=== PATIENT | male | born 1945 | race Two or more races ===

== ENCOUNTER 2024-03-23 17:04 | Inpatient (IN) | payer MEDICARE, MEDICAID, SELFPAY ==
[2024-03-23 17:06] VITALS: BP 181/89; PULSE 98; RESP 19; TEMP 36.4; O2SAT 95
[2024-03-23 17:41] VITALS: PULSE 96; RESP 20; BMI 28.9
[2024-03-23 18:00] VITALS: BP 162/98; PULSE 72; RESP 18; TEMP 36.3; O2SAT 98
--- NOTE | 2024-03-23 18:04 | EDNOTE_ITS ---
ED Weakness RME/HPI General Chief complaint: Weakness Stated complaint: WEAKNESS Time Seen by Provider: 03/23/24 18:04 Arrival date/time: 03/23/24 17:04 Limitations: no limitations RME / HPI RME / HPI Narrative: Dr. San's Main ED Evaluation: 78yo male with a history of Parkinson's disease, back surgery presents to the ED for a chief complaint of generalized weakness for the last few weeks. Patient's states the patient has been falling more frequently lately, reporting his left side is weaker than his right-sided extremities. Patient is followed by Dr. Finch for his Parkinson's and was advised to come to the ED for evaluation. Patient normally gets around via wheelchair. Denies any urinary or bowel incontinence. Denies any UTI symptoms, fever, chills, back pain or any other associated symptoms. No known allergies. Related Data Home Medications ?Medication ?Instructions ?Recorded ?Confirmed amantadine HCl 100 mg capsule 1 cap PO QDAY 10/02/21 03/24/24 carbidopa ER 50 mg-levodopa 200 mg 1 tab PO Q12H 10/02/21 03/24/24 tablet,extended release entacapone 200 mg tablet 1 tab PO Q12H 10/02/21 03/24/24 finasteride 5 mg tablet 1 tab PO HS 10/02/21 03/24/24 pramipexole 0.5 mg tablet 1 tab PO Q8H 10/02/21 03/24/24 trihexyphenidyl 5 mg tablet 2 mg PO BID 01/19/22 03/24/24 lisinopril 40 mg tablet 40 mg PO QDAY 03/24/24 03/24/24 meloxicam 15 mg tablet 15 mg PO QDAY 03/24/24 03/24/24 pimavanserin 34 mg capsule 34 mg PO QDAY 03/24/24 03/24/24 tamsulosin 0.4 mg capsule 0.4 mg PO QDAY 03/24/24 03/24/24 tamsulosin 0.4 mg capsule mg PO 03/24/24 tamsulosin 0.4 mg capsule mg PO 03/24/24 Allergies Allergy/AdvReac Type Severity Reaction Status Date / Time No Known Allergies Allergy Verified 05/10/23 09:17 Review of Systems Review of Systems Systems Reviewed: All systems reviewed, normal except as documented Past Medical History Past Medical History NEUROLOGIC: Positive Neurological Disorders and Parkinson's Disease CARDIAC: Positive Cardiac Disorders and Hypertension; Negative Congestive Heart Failure RESPIRATORY: Negative Chronic Obstructive Pulmonary Disease (COPD) GASTROINTESTINAL: Negative Gastrointestinal Disorders GENITOURINARY: Positive Benign Prostatic Hyperplasia; Negative Renal Disease MUSCULOSKELETAL: Positive Musculoskeletal Disorders ENDOCRINE: Negative Endocrine Disorders, Diabetes Mellitus Type 1 or Diabetes Mellitus Type 2 HEMATOLOGIC: Negative Blood Disorders OTHER HISTORY: Negative Cancer Social History SMOKING STATUS: Never smoker SECOND HAND EXPOSURE: Yes SUBSTANCE USE: does not use ED Exam General Limitations: Present no limitations General appearance: Present alert and in no apparent distress Head Head exam: Present atraumatic Eye Eye exam: Present normal appearance, PERRL and EOMI ENT ENT exam: Present normal exam, normal oropharynx and mucous membranes moist Neck Neck exam: Present normal inspection, full ROM and trachea midline Chest Chest inspection: Present normal inspection and symmetric chest wall rise Respiratory Respiratory exam: Present normal lung sounds bilaterally Cardiovascular Cardiovascular exam: Present regular rate, normal rhythm and normal heart sounds Abdominal Exam Abdominal exam: Present soft, normal bowel sounds and other (large); Absent tenderness Extremities Exam Extremities exam: Present full ROM and other (4+/5 strength at the right extremities, 4/5 strength on the left; normal sensations to touch) Back Exam Back exam: Present normal inspection, full ROM and other (well-healed scar at the lower back without any surrounding erythema; no c/t/l spine tenderness) Neurological Exam Neurological exam: Present alert, oriented X3 and CN II-XII intact Psychiatric Psychiatric exam: Present normal affect and normal mood Skin Skin exam: Present warm, dry, intact and normal color Course Quality Measures none Orders Category Date Time Status COVID-19 Screening Questionnaire NOW Care 03/23/24 22:35 Active Decision to Admit X1 Care 03/23/24 22:[address] head/brain wo con Stat Exams 03/23/24 18:04 Completed CBC Stat Lab 03/23/24 18:36 Completed CMP [Comprehensive Metabolic Panel] Stat Lab 03/23/24 18:36 Completed Urinalysis Stat Lab 03/23/24 21:10 Completed cefTRIAXone [Rocephin] 1,000 mg Med 03/23/24 22:35 Discontinued Sodium Chloride 0.9% (P) [Ns 0.9% (P)] 50 ml IV X1 Vital Signs Vital signs: Vital Signs Temperature 97.6 F 03/23/24 17:06 Pulse Rate 98 03/23/24 17:06 Respiratory Rate 19 03/23/24 17:06 Blood Pressure 181/89 H 03/23/24 17:06 Pulse Oximetry (%) 95 03/23/24 17:06 Oxygen Delivery Method Room Air 03/23/24 17:06 Pulse ox is 95% on room air, which is normal according to my interpretation. Weakness Patient data External records reviewed:: [facility] previous records (Per chart review, patient was admitted here on 08/04/23 for an acute UTI.) Clinical information provided by:: patient Social determinants that could affect healthcare access:: none Patient has the following chronic illnesses:: Parkinson's disease, HTN, BPH How is presenting disease/condition affected by chronic disease/condition?: exacerbated by Evaluation data The following diagnostics were reviewed and interpreted by me:: lab results and radiology exam(s) Lab and/or radiology exams considered but not ordered:: none Interpretation Summary: WBC count is slightly elevated at 11.2, CMP is normal, UA is positive for a UTI, according to my interpretation. ------ I have personally reviewed the radiology data and agree with the radiologist's interpretation below: [facility] Report Signed Patient: JEFF LUDWIG. Record#: [id number] Birthdate: 1945 Age/Sex: 78 / M Location: [facility] Attending Dr: Ordering Physician: Tiffanie Jaeger MD Date of Service: 03/23/24 Procedure(s): CT head/brain wo con Accession Number(s): [id number] cc: Brandyn Bains MD; NO PRIMARY/FAMILY,PHYSICIAN; Tiffanie Jaeger MD~ Examination: CT brain head without contrast. 2-D sagittal coronal reconstructions Date and time of exam:March 23, 2024 1849 hrs. Indications: Onset generalized weakness today CTDI: vol (mGy):56.3 DLP: (mGycm):1245 Technique: Multiple CT axial sections of the brain have been obtained, 5 mm slice thickness. Contrast has not been administered. 2-D sagittal, coronal reconstructions have been obtained Low dose protocols were performed. One or more of the following dose reduction techniques were used; automated exposure control, adjustment of the mA and/or KV according to patient size, use of iterative reconstruction technique. Findings: No significant ventricular enlargement. Intra-axial or extra-axial hemorrhage density is not seen. No mass effect or midline shift Basal cisterns are not remarkable. Fourth ventricle is midline. Cranial vault intact. Impression: Negative for acute hemorrhage, mass effect or midline shift Advise clinical correlation and follow-up accordingly Dictated By: Brandyn Bains MD Signed By: <Electronically signed by Brandyn Bains MD in OV> 03/23/24 1930 Medications / Prescriptions Medications or Prescriptions considered but not ordered:: none Medication administrations:: Medication Administration History Acetaminophen (Acetaminophen 325 Mg Tablet) 650 mg PO Q6H PRN PRN Reason: Pain 1-3 or Fever >100.3 Stop: 04/22/24 23:15 Amantadine HCl (Amantadine Hcl 100 Mg Capsule) 100 mg PO BID [facility] Stop: 03/31/24 08:59 Last Admin: 03/25/24 22:30 Dose: 100 mg Documented By: Admin: 03/25/24 09:53 Dose: 100 mg Documented By: Admin: 03/24/24 21:57 Dose: Not Given Documented By: Non-Admin Reason: Medication Not Available Admin: 03/24/24 09:26 Dose: 100 mg Documented By: SERGIO Carbidopa/Levodopa (Carbidopa/Levodopa Cr 50/200 Tabcr) 1 tab PO TID [facility] Stop: 04/22/24 23:29 Last Admin: 03/25/24 22:30 Dose: 1 tab Documented By: Admin: 03/25/24 13:01 Dose: 1 tab Documented By: Admin: 03/25/24 05:31 Dose: 1 tab Documented By: Admin: 03/24/24 21:56 Dose: 1 tab Documented By: Admin: 03/24/24 15:58 Dose: 1 tab Documented By: Admin: 03/24/24 08:29 Dose: Not Given Documented By: SERGIO Non-Admin Reason: FIRST DOSE GIVE AT 0220 Admin: 03/24/24 02:21 Dose: 1 tab Documented By: AYLA Trihexyphenidyl 2mg (Tablet) 0 ea PO BID [facility] Stop: 04/23/24 12:29 Last Admin: 03/25/24 22:30 Dose: 1 tablet Documented By: Admin: 03/25/24 08:27 Dose: 1 tablet Documented By: Admin: 03/24/24 21:56 Dose: 1 tablet Documented By: Admin: 03/24/24 14:50 Dose: 1 tablet Documented By: SERGIO Entacapone (Entacapone 200 Mg Tablet (Non-Formulary)) 200 mg PO BID [facility] Stop: 04/22/24 08:59 Last Admin: 03/25/24 22:32 Dose: 200 mg Documented By: Admin: 03/25/24 09:53 Dose: 200 mg Documented By: Admin: 03/24/24 21:57 Dose: Not Given Documented By: Non-Admin Reason: Medication Not Available Admin: 03/24/24 09:34 Dose: Not Given Documented By: SERGIO Non-Admin Reason: Cancelled by Provider Admin: 03/24/24 09:26 Dose: 200 mg Documented By: Admin: 03/24/24 08:31 Dose: Not Given Documented By: SERGIO Non-Admin Reason: NOT ADMITTED UNTIL 2316 ON 03/23 Finasteride (Finasteride 5 Mg Tablet) 5 mg PO QDAY [facility] Stop: 04/23/24 08:59 Last Admin: 03/25/24 08:27 Dose: 5 mg Documented By: Admin: 03/24/24 09:27 Dose: 5 mg Documented By: SERGIO Heparin Sodium (Porcine) (Heparin Sod Inj 5000 Unit/Ml Vial) 5,000 unit SC Q12HR [facility] Stop: 04/07/24 08:59 Last Admin: 03/25/24 22:32 Dose: 5,000 unit Documented By: FRANKI Co-signed By: ISRAEL Admin: 03/25/24 08:27 Dose: 5,000 unit Documented By: NOHELIA Co-signed By: REJI Admin: 03/24/24 21:56 Dose: 5,000 unit Documented By: Co-signed By: ISRAEL Admin: 03/24/24 09:29 Dose: 5,000 unit Documented By: SERGIO Co-signed By: ALEJANDRO Ceftriaxone Sodium/Dextrose (Rocephin/D5w 1gm Iv Premix) 50 mls @ 100 mls/hr IV HS [facility] Stop: 03/31/24 20:59 Last Admin: 03/25/24 22:32 Dose: 100 mls/hr Documented By: Infusion: 03/24/24 22:25 Dose: Infused Documented By: Admin: 03/24/24 21:55 Dose: 100 mls/hr Documented By: Lisinopril (Lisinopril 20 Mg Tablet) 40 mg PO HS [facility] Stop: 04/22/24 23:29 Last Admin: 03/25/24 22:29 Dose: 40 mg Documented By: Admin: 03/24/24 21:56 Dose: 40 mg Documented By: Admin: 03/24/24 00:55 Dose: 40 mg Documented By: AYLA Ondansetron HCl (Ondansetron Inj 2 Mg/Ml Inj 2 Ml) 4 mg IV Q6H PRN; Protocol PRN Reason: NAUSEA OR VOMITING Stop: 04/22/24 23:15 Pramipexole Dihydrochloride (Pramipexole 0.25 Mg Tablet) 0.5 mg PO TID [facility] Stop: 04/22/24 23:29 Last Admin: 03/25/24 22:30 Dose: 0.5 mg Documented By: Admin: 03/25/24 13:01 Dose: 0.5 mg Documented By: Admin: 03/25/24 05:31 Dose: 0.5 mg Documented By: Admin: 03/24/24 21:56 Dose: 0.5 mg Documented By: Admin: 03/24/24 15:59 Dose: 0.5 mg Documented By: Admin: 03/24/24 08:33 Dose: Not Given Documented By: SERGIO Non-Admin Reason: FIRST DOES GIVEN AT 0220 Admin: 03/24/24 02:20 Dose: 0.5 mg Documented By: AYLA Sennosides (Senna Tablet) 1 tab PO QDAY [facility]; Protocol Stop: 04/23/24 08:59 Last Admin: 03/25/24 08:27 Dose: 1 tab Documented By: Admin: 03/24/24 09:25 Dose: 1 tab Documented By: SERGIO Tamsulosin HCl (Tamsulosin Hcl 0.4 Mg Capsule) 0.4 mg PO QDAY [facility] Stop: 04/23/24 08:59 Last Admin: 03/25/24 08:27 Dose: 0.4 mg Documented By: Admin: 03/24/24 09:25 Dose: 0.4 mg Documented By: SERGIO Discontinued Medications Ceftriaxone Sodium 1,000 mg/ (Sodium Chloride) 50 mls @ 100 mls/hr IV X1 ONE Stop: 03/23/24 23:04 Last Infusion: 03/24/24 01:30 Dose: Infused Documented By: Admin: 03/24/24 00:54 Dose: 100 mls/hr Documented By: AYLA Home Medication- Please Speak With Patient Caregiver To Have Rx Brought To [facility] 2 mg PO BID [facility] Stop: 04/22/24 23:44 Last Admin: 03/24/24 16:05 Dose: Not Given Documented By: SERGIO Non-Admin Reason: Duplicate Medication on eMAR Admin: 03/24/24 15:30 Dose: 2 mg Documented By: SERGIO Comments: PATIENT GIVEN OWN MEDICATION FROM HOME, SCANNED WITH PHARMACY LABEL see above, if any Consultations Consultation(s) initiated? (list below): Yes Consultation #1 (Physician, Specialty, Details): Discussed case with [Dr. Finch] from [neurology] regarding [consultation]. Discussed patients ED course, exam findings, labs, and radiology results. States to admit the patient for further work-up and to have the patient placed in a SNF. Time: 22:31 Consultation #2 (Physician, Specialty, Details): Discussed case with [the resident physician, attending Dr. Bhatt] from Hospitalist service regarding admission. Discussed patients ED course, exam findings, labs, and radiology results. The Hospitalist [agrees] to accept the patient for admission. Time: 22:34 Diagnosis Weakness Differential Diagnosis: other (UTI, electrolyte abnormality, CVA, TIA, worsening of Parkinson's disease) Most likely diagnosis given after review of the tests above:: see below Admission Indicated Admission indicated?: indicated Admission Request Was there a request for admission?: Yes Admission Attestation Admission request attestation: Discussed case with [] from Hospitalist service regarding admission. Discussed patients ED course, exam findings, labs, and radiology results. The Hospitalist [agrees,declines] to accept the patient for admission. Disposition Plan Disposition Plan: Admit Critical Care Time Critical Care Time Critical Care Time: Yes Total Critical Care Time (min.): 35 Attestation: The high probability of sudden, clinically significant deterioration in the patient?s condition required the highest level of my preparedness to intervene urgently. The services I provided to this patient were to treat and/or prevent clinically significant deterioration. Services included the following: chart data review, reviewing nursing notes and/or old charts, documentation time, store consultant collaboration regarding findings and treatment options, medication orders and management, direct patient care, vital sign assessments and ordering, interpreting and reviewing diagnostic studies and lab tests. Aggregate critical care time includes only time during which I was engaged in work directly related to the patient?s care, as described above, whether at bedside or elsewhere in the Emergency Department. It did not include time spent performing other reported procedures or the services of residents, students, nurses or physician assistants. Discharge Plan Plan Patient Disposition: Admit Acute Care w/in Hospital Patient condition on transfer: Stable Problem List Clinical Impression: Weakness
[2024-03-23 19:04] LABS: Basophils # (Auto) 0.1 Thou/mm3 (0.0-0.2); Basophils % (Auto) 1 % (0-2.5); Eosinophils # (Auto) 0.1 Thou/mm3 (0.0-0.5); Eosinophils % (Auto) 1 % (0-10); Hematocrit 41.3 % (41.0-53.0); Hemoglobin 13.8 g/dL (13.5-16.0); Immature Granulocytes % (Auto) 0 % (0-0); Immature Granulocytes Auto 0.03 Thou/mm3 (0.00-0.00); Lymphocytes # (Auto) 1.5 Thou/mm3 (1.0-4.8); Lymphocytes % (Auto) 14 % (10-50); Mean Corpuscular HGB Conc 33.4 g/dl (31.0-37.0); Mean Corpuscular Hemoglobin 29.7 pg (25.0-35.0); Mean Corpuscular Volume 89 fL (80-100); Monocytes % (Auto) 9 % (0-12); Neutrophils # (Auto) 8.4 Thou/mm3 (1.8-7.7); Neutrophils % (Auto) 75 % (37-80); Nucleated Red Blood Cell % 0 /100 WBC (0); Platelet Count 220 Thou/mm3 (140-440); RDW Standard Deviation 45.4 fL (35.1-43.9); Red Blood Count 4.64 Miln/mm3 (4.50-5.90); White Blood Count 11.2 Thou/mm3 (3.8-10.6)
[2024-03-23 19:29] LABS: Alanine Aminotransferase < 7 U/L (10-49); Albumin, Serum 4.3 gm/dL (3.4-4.8); Albumin/Globulin Ratio 2.3 (1.2-2.2); Alkaline Phosphatase 150 U/L (46-116); Anion Gap 5 (7-16); Aspartate Amino Transferase 16 U/L (0-34); BUN/Creatinine Ratio 16 Ratio (12-20); Bilirubin,Total 0.5 mg/dL (0.3-1.2); Blood Urea Nitrogen 16 mg/dL (9-23); Calcium 9.1 mg/dL (8.3-10.6); Calcium (Corrected) 9.1 mg/dL (8.5-10.1); Carbon Dioxide 29.8 mMol/L (20.0-31.0); Chloride 107 mMol/L (98-107); Estimated Creatinine Clearance 54.6 mL/min (>60); Globulin 1.9 gm/dL (2.3-3.5); Glucose 104 mg/dL (74-106); Osmolality,Calculated 284 (275-295); Potassium 4.2 mMol/L (3.4-5.1); Sodium 142 mMol/L (136-145); Total Protein 6.2 gm/dL (5.7-8.2); eGFR > 60 See Note
[2024-03-23 21:25] LABS: Collection Type, Urine Voided
[2024-03-23 21:49] LABS: Bilirubin,Urine Negative (Negative); Blood,Urine 3+ (Negative); Clarity,Urine Turbid (Clear/Hazy); Color,Urine Yellow (Lt Yel-Yel); Glucose, Urine Negative (Negative); Ketones,Urine Negative (Negative); Leukocyte Esterase,Urine Positive (Negative); Nitrite,Urine Negative (Negative); Protein,Urine Trace (Neg - Trace); RBC,Urine 1828 /hpf (0-3); Specific Gravity,Urine 1.018 (1.001-1.035); Squamous Epithelial Cell,Urine < 1 /hpf (0-5); Urobilinogen,Urine Negative mg/dL (0.0-1.0); WBC,Urine 14 /hpf (0-5)
[2024-03-23 22:38] VITALS: BP 166/87; PULSE 71; RESP 18; TEMP 36.6; O2SAT 98
--- NOTE | 2024-03-23 23:47 | PD.RESHP ---
Documentation for date of: 03/23/24 [facility] History of Present Illness History of present illness: The patient is a 78-year-old male with a past medical history of Parkinson disease, BPH, hypertension, hyperlipidemia who presented to the ED on 03/23/2024 after a 2-week history of multiple falls. Per the patient and at bedside, he has been in his usual state of health until about 2 weeks ago when he hematemesis that he was getting a little weak, more on his left side. Since that time, patient has been consistently found either on the floor or falling off the couch as seen by relatives. He also reports that he has been unable to get up from toilet seat due to weakness. While he does deny he denies any losing consciousness of any of the falls, he does admit that he scraped his left knee recently. Other than that, he has been pretty healthy in the last couple months. He was hospitalized in August for similar symptoms and he presented with weakness and multiple falls, further workup was done at the time and patient was discharged to SNF. He has been followed by neurologist Dr. Finch who advised the patient to come in for further evaluation and recommended admission for possible SNF placement. ED course: In the ED, patient was afebrile but hypertensive with blood pressure in the 180s, saturating 90% on room air. Head CT was done which shows negative for any acute processes. On labs, WBC 11.2 Hgb 13.8 PLT 220 sodium 142 potassium 4.2 CL 107 BUN and creatinine normal ALP 115. Usually turbid urine with 3+ blood 1828 RBC and 14 WBC with positive esterase, but no bacteria. The patient is being admitted for further evaluation. Review of Systems Review of Systems Narrative Review of Systems: GENERAL: Denies fevers/chills or diaphoresis. HEENT: Denies headache or visual/hearing changes. Denies nasal discharge. NEURO:Admits unusual weakness and increasing tremors CARDIO: Denies chest pain or palpitations. PULM: Denies SOB, coughing, or wheezing. GI: Denies abdominal pain, N/V/C/D/reflux/gas, bright red blood per rectum or melena. Reports having BMs. URO: Denies burning/itching/pain/urinary changes. MSK/EXT/SKIN: Admits mild pain in the left knee PSYCH: Cooperative, pleasant mood & affect. Exam Vital Signs Temp Pulse Resp BP Pulse Ox O2 Del Method 97.9 F 71 18 166/87 H 98 Room Air 03/23/24 22:38 03/23/24 22:38 03/23/24 22:38 03/23/24 22:38 03/23/24 22:38 03/23/24 22:38 Narrative Exam GENERAL: AAOX3 NEURO: Strength 5/5 in RUE and RLE, 4/5 strength in LLE, sensation intact, reflexes normal. Resting and intention tremors seen in upper extremities as well as head tremors. HEENT: Moist mucosa. Eyes open, symmetrical, & clear CARDIO: No chest pain on palpation. Heart RRR, no obvious murmurs PULM: No noted coughing/dyspnea. Lungs CTA B/L GI: Abdomen soft, nondistended, no pain on palpation. BSx4 URO/REGULATORY SUBMISSIONS ASSOCIATE:: No further abnormalities noted. SKIN/MSK/EXT: Left knee bruise seen with some redness, no swelling or warmth. Normal range of motion Results: Labs 03/24/24 04:20 03/24/24 04:20 Labs: Short CBC 03/23/24 Range/Units 18:36 WBC 11.2 H (3.8-10.6) Thou/mm3 Hgb 13.8 (13.5-16.0) g/dL Hct 41.3 (41.0-53.0) % Plt Count 220 (140-440) Thou/mm3 BMP 03/23/24 18:36 Sodium 142 Potassium 4.2 Chloride 107 Carbon Dioxide 29.8 BUN 16 Creatinine 1.0 Glucose 104 Calcium 9.1 Liver Function 03/23/24 Range/Units 18:36 Total Bilirubin 0.5 (0.3-1.2) mg/dL AST 16 (0-34) U/L ALT < 7 L (10-49) U/L Alkaline Phosphatase 150 H (46-116) U/L Albumin 4.3 (3.4-4.8) gm/dL Urine 03/23/24 Range/Units 21:10 Urine Color Yellow (Lt Yel-Yel) Urine Clarity Turbid A (Clear/Hazy) Urine pH 7.0 (5.0-7.0) Ur Specific [place] 1.018 (1.001-1.035) Urine Protein Trace (Neg - Trace) Urine Glucose (UA) Negative (Negative) Quality Measures Quality Measures none Advance care planning discussed with:: patient and spouse Medications Home Medications and Allergies Home Medications ?Medication ?Instructions ?Recorded ?Confirmed ?Type amantadine HCl 100 mg capsule 1 cap PO QDAY 10/02/21 08/04/23 History carbidopa ER 50 mg-levodopa 200 mg 1 tab PO Q12H 10/02/21 08/04/23 History tablet,extended release entacapone 200 mg tablet 1 tab PO Q12H 10/02/21 08/04/23 History finasteride 5 mg tablet 1 tab PO HS 10/02/21 08/04/23 History hydralazine 25 mg tablet 1 tab PO Q8H 10/02/21 08/04/23 History pramipexole 0.5 mg tablet 1 tab PO Q8H 10/02/21 08/04/23 History tamsulosin 0.4 mg capsule 1 cap PO HS 10/02/21 08/04/23 History atorvastatin 40 mg tablet 40 mg PO QPM 01/19/22 08/04/23 History melatonin 5 mg tablet 5 mg PO HS PRN Sleep 01/19/22 08/04/23 History multivitamin 1 tab PO QAM 01/19/22 08/04/23 History trihexyphenidyl 5 mg tablet 5 mg PO BID 01/19/22 08/04/23 History Allergies Allergy/AdvReac Type Severity Reaction Status Date / Time No Known Allergies Allergy Verified 05/10/23 09:17 Visit Medications Acetaminophen (Acetaminophen 325 Mg Tablet) 650 mg PO Q6H PRN PRN Reason: Pain 1-3 or Fever >100.3 Stop: 04/22/24 23:15 Amantadine HCl (Amantadine Hcl 100 Mg Capsule) 100 mg PO BID [facility] Stop: 03/31/24 08:59 Carbidopa/Levodopa (Carbidopa/Levodopa Cr 50/200 Tabcr) 1 tab PO TID [facility] Stop: 04/22/24 23:29 Heparin Sodium (Porcine) (Heparin Sod Inj 5000 Unit/Ml Vial) 5,000 unit SC Q12HR [facility] Stop: 04/07/24 08:59 Lisinopril (Lisinopril 20 Mg Tablet) 40 mg PO HS [facility] Stop: 04/22/24 23:29 Non-Formulary Medication (Entacapone) 200 mg PO BID [facility] Stop: 04/22/24 23:29 Non-Formulary Medication (Trihexyphenidyl) 2 mg PO BID [facility] Stop: 04/22/24 23:44 Ondansetron HCl (Ondansetron Inj 2 Mg/Ml Inj 2 Ml) 4 mg IV Q6H PRN; Protocol PRN Reason: NAUSEA OR VOMITING Stop: 04/22/24 23:15 Pramipexole Dihydrochloride (Pramipexole 0.25 Mg Tablet) 0.5 mg PO TID [facility] Stop: 04/22/24 23:29 Sennosides (Senna Tablet) 1 tab PO QDAY [facility]; Protocol Stop: 04/23/24 08:59 Discontinued Medications Ceftriaxone Sodium 1,000 mg/ (Sodium Chloride) 50 mls @ 100 mls/hr IV X1 ONE Stop: 03/23/24 23:04 Assessment & Plan Assessment Summary: The patient is a 78year old male with a past medical history of parkinson's disease, BPH, hypertension, hyperlipidemia who presented to the ED on 03/23/2024 after a 2week history of multiple falls. #Multiple falls #History of parkinson disease The patient presented with a two week history of multiple falls as reported by him and family members. He has reportedly been seen to fall off the bed/couch as well as have trouble getting up from the toilet. He was hospitalized in August for similar symptoms when he presented with weakness and multiple falls and at the time further workup was done which was negative. Th patient was discharged to a SNF with all his medications except trihexyphenidyl as it was suspected to be the cause of his falls. He is being followed by Neurologist, Dr Finch and patient is back on the medication. She was contacted and it was recommended that patient be admitted for further evaluation. Head CT ws negative for acute hemorrhage, mass effect or midline shift. Plan: -Admit to [facility] -Resume home meds -Neurology consulted, appreciate recommendations -Referral physical therapy #History of hypertension #History of hyperlipidemia The patient has a history of hypertension and is on Lisinopril 40mg. Blood pressure on admission was in the #History of BPH #s/p prostatectomy #Dysuria He has a history of BPH and is on finasteride 5mg and tamsulosin 0.4mg daily. UA on admission shows 3+ blood and 1828 RBCs, no bacteria He complains of burning sensation and some pinkish discoloration in his urine but no retention. He received one dose of IV Ceftriaxone in the ED Plan: -Resume home meds -CT abdomen/pelvis -Consider Pyridium for dysuria Health maintenance: Dispo: MedSurg Diet: Cardiac DVT: SC Heparin Thakkar: None Lines: Peripheral Med Rec: Pending, f/u PT: Ordered Code: Full Case was discussed with attending physician, Dr Nova Garcia MD PGY-1 Attending Provider Attestation/Addendum Face to face evaluation was performed by me. I have personally seen and examined the patient. I discussed the assessment and plan with the entire medicine team. I reviewed available medical records, imaging studies, laboratory results. I agree with the above subjective data, objective findings, assessment and plan except as corrected by me or noted below Multiple falls, Parkinsons disease HTN HLD - Admit for further workup and likely placement Neurology consulted, appreciate all help continue home medications as reconciles Therapy
[2024-03-24] VITALS (14 sets, daily range): BP systolic 125–176; BP diastolic 68–90; PULSE 65–78; RESP 16–98; TEMP 36.3–37; O2SAT 96–98; BMI 34.6
--- NOTE | 2024-03-24 00:43 | XR_ITS ---
Examination: CT abdomen and pelvis without contrast. Coronal 3-D reconstructions. Sagittal 2-D reconstructions. Date and time of exam:March 24, 2024 0132 hrs. Indications: Abdominal pain and weakness beginning 2 days ago CTDI: vol (mGy): 11.8 DLP: (mGycm): 830 Technique: Axial images of the abdomen have been obtained, 3 mm slice thickness Intravenous contrast material has not been administered. Low dose protocols were performed. One or more of the following dose reduction techniques were used; automated exposure control, adjustment of the mA and/or KV according to patient size, use of iterative reconstruction technique. Findings: No focal liver or splenic lesions No gallstones No pancreatic mass Perinephric stranding No renal or ureteral calculi, no hydronephrosis Abdominal aortic calcification no aneurysmal dilatation Normal appendix 6 mm fat-containing umbilical hernia No bowel obstruction No diverticulitis Minimal thickening of the urinary bladder wall Transverse prostate dimension 4.4 cm Bilateral fat-containing inguinal hernias Transpedicular lumbar fusion at L4-L5 level, cortical bone destruction involving inferior endplate L4 superior endplate L5 which may be postsurgical Impression: Perinephric stranding, consider urinary tract infection Minimal thickening of the urinary bladder wall, cystitis pattern Normal appendix
[2024-03-24] MEDS: cefTRIAXone 1,000 MG in SODIUM CHLORIDE 0.9% (P) 50 ML 100 MG IV (00:54)
[2024-03-24] MEDS: Lisinopril 20 MG TABLET 40 MG PO ×2 (00:55→21:56)
[2024-03-24] MEDS: PRAMIPEXOLE 0.25 MG TABLET 0.5 MG PO ×3 (02:20→21:56)
[2024-03-24] MEDS: CARBIDOPA/LEVODOPA CR 50/200 TABCR 1 TAB PO ×3 (02:21→21:56)
--- NOTE | 2024-03-24 03:05 | PRELIM_ITS ---
CT scan of the abdomen and pelvis without intravenous contrast (axial sections with sagittal and madyson nal reformats) March 24, 2024 at 0132 hours Clinical History: Hematuria and dysuria.Comparison: No prior study is available for comparison. Findings:Bibasilar dependent atelectasis is present. Elevat ion of the right hemidiaphragm is seen.A small hiatal hernia is present. The liver, gallbladder, panc reas, spleen, and adrenals are unremarkable on this noncontrast study.Nonspecific perinephric fat str anding is noted bilaterally. No evidence of bowel obstruction. The appendix is within normal limits. Abundant fecal material is noted within the colon. There is no mesenteric or retroperitoneal adenopat hy.The urinary bladder is incompletely distended at the time of the examination. There is no free flu id or free air. The aorta and its branches demonstrate atheromatous calcification without evidence of aneurysm. Osseous degenerative changes are noted. Impression:Perinephric fat stranding bilaterally. While nonspecific, the possibility of urinary infection cannot be excluded. Recommend clinical correl ation. Constipation. Report Electronically Signed By: Ori Núñez 03/24/2024 3:05:22 AM [EST]
[2024-03-24 04:24] LABS: Basophils # (Auto) 0.1 Thou/mm3 (0.0-0.2); Basophils % (Auto) 1 % (0-2.5); Eosinophils # (Auto) 0.2 Thou/mm3 (0.0-0.5); Eosinophils % (Auto) 2 % (0-10); Hematocrit 40.9 % (41.0-53.0); Hemoglobin 14.1 g/dL (13.5-16.0); Immature Granulocytes % (Auto) 0 % (0-0); Immature Granulocytes Auto 0.02 Thou/mm3 (0.00-0.00); Lymphocytes # (Auto) 1.2 Thou/mm3 (1.0-4.8); Lymphocytes % (Auto) 12 % (10-50); Mean Corpuscular HGB Conc 34.5 g/dl (31.0-37.0); Mean Corpuscular Hemoglobin 29.9 pg (25.0-35.0); Mean Corpuscular Volume 87 fL (80-100); Monocytes # (Auto) 0.7 Thou/mm3 (0.0-0.8); Monocytes % (Auto) 7 % (0-12); Neutrophils # (Auto) 7.8 Thou/mm3 (1.8-7.7); Neutrophils % (Auto) 78 % (37-80); Nucleated Red Blood Cell % 0 /100 WBC (0); Platelet Count 207 Thou/mm3 (140-440); RDW Standard Deviation 44.3 fL (35.1-43.9); Red Blood Count 4.71 Miln/mm3 (4.50-5.90); White Blood Count 9.9 Thou/mm3 (3.8-10.6)
[2024-03-24 04:54] LABS: Alanine Aminotransferase < 7 U/L (10-49); Albumin, Serum 4.1 gm/dL (3.4-4.8); Albumin/Globulin Ratio 2.2 (1.2-2.2); Alkaline Phosphatase 147 U/L (46-116); Anion Gap 5 (7-16); Aspartate Amino Transferase 12 U/L (0-34); BUN/Creatinine Ratio 16 Ratio (12-20); Bilirubin,Total 0.7 mg/dL (0.3-1.2); Blood Urea Nitrogen 13 mg/dL (9-23); Calcium 8.9 mg/dL (8.3-10.6); Calcium (Corrected) 8.9 mg/dL (8.5-10.1); Carbon Dioxide 27.8 mMol/L (20.0-31.0); Cardiac Risk Estimate 3.1 RATIO (4.0-6.7); Chloride 108 mMol/L (98-107); Cholesterol 140 mg/dL (132-200); Creatinine (Component) 0.8 mg/dL (0.6-1.3); Estimated Creatinine Clearance 68.3 mL/min (>60); Globulin 1.9 gm/dL (2.3-3.5); Glucose 106 mg/dL (74-106); HDL Cholesterol 45 mg/dL (40-60); LDL Cholesterol,Calculated 81 mg/dL (0-130); Magnesium 2.2 mg/dL (1.6-2.6); Osmolality,Calculated 281 (275-295); Phosphorous 3.1 mg/dL (2.4-5.1); Potassium 3.8 mMol/L (3.4-5.1); Sodium 141 mMol/L (136-145); Thyroid Stimulating Hormone 0.88 uIU/mL (0.55-4.78); Triglycerides 72 mg/dL (30-150); eGFR > 60 See Note
--- NOTE | 2024-03-24 05:13 | PC.NURSE ---
Pt is sleeping. arouses easily. NAD.
--- NOTE | 2024-03-24 07:48 | PC.CC ---
Patient is a 78 year-old male who presents to the hospital for weakness. Sona LIVINGSTON made [id number] contact with patient. ASW introduced self, role, and reason for visit. Patient appeared alert and oriented to self, location, and situation. Patient was pleasant and engaged in initial assessment. Patient confirmed information on demographics and reports to living at home with his daughter, Marry Conroy . Patient named his daughter as Next of Kin. Per patient, at home he is able to complete his own ADLs; however for ambulation he uses a walker and wheelchair. Patient receives primary care with [facility] in [place] and for prescription medication he uses [facility]. Upond discharge patient is thinking about going to a Custodial Facility as he has had multiple falls and feels weak. Patient reports he stayed at [facility] for 6 weeks and would like to retyn there is possible. child protective services specialist to follow up with any discharge needs.
[2024-03-24 08:23] LABS: Creatine Kinase 163 U/L (34-171)
--- NOTE | 2024-03-24 09:16 | PC.NURSE ---
Patient was assisted with feeding. Patient tolerated well and ate a good portion of his breakfast.
[2024-03-24] MEDS: SENNA TABLET 1 TAB PO (09:25)
[2024-03-24] MEDS: TAMSULOSIN HCL 0.4 MG CAPSULE PO (09:25)
[2024-03-24] MEDS: ENTACAPONE 200 MG PO (09:26)
[2024-03-24] MEDS: amantadine HCL 100 MG CAPSULE PO (09:26)
[2024-03-24] MEDS: FINASTERIDE 5 MG TABLET PO (09:27)
[2024-03-24] MEDS: HEPARIN SOD INJ 5000 UNIT/ML VIAL SC ×2 (09:29→21:56)
--- NOTE | 2024-03-24 10:05 | PC.NURSE ---
CONTACTED DAUGHTER OF PATIENT REQUESTING MEDICATION LIST AND TO BRING MEDICATION DUE TO HOSPITAL NOT STOCKING ALL OF PATIENT HOME MEDICATION. DAUGHTER STATES SHE WILL BE HERE LATER THIS AM. DAUGHTER UPDATED ON PLAN OF CARE.
--- NOTE | 2024-03-24 10:35 | PD.RESCONSUL ---
HPI Data of Consult Requesting Physician: Fredrick Bhatt MD Admitting Provider: Fredrick Bhatt MD Attending Provider: Fredrick Bhatt MD Primary Care Provider: Physician No Primary/Family Consult Narrative History of present illness: 78-year-old male with a past medical history of Parkinson disease, BPH, hypertension, hyperlipidemia who presented to the ED on 03/23/2024 after a 2-week history of multiple falls. Patient refers feeling progressively weaker, trips easily, he denies losing consciousness or hitting his head. He was hospitalized in August for similar symptoms as he presented with weakness and multiple falls. He has been followed by neurologist Dr. Finch outpatient. ED course: In the ED, patient was afebrile but hypertensive with blood pressure in the 180s, saturating 90% on room air. Head CT was done which shows negative for any acute processes. On labs, WBC 11.2 Hgb 13.8 PLT 220 sodium 142 potassium 4.2 CL 107 BUN and creatinine normal ALP 115. UA turbid urine with 3+ blood 1828 RBC and 14 WBC with positive esterase, but no bacteria. The patient was admitted for further evaluation, neurology consulted to reevaluate medications. cc:: cc: Fredrick Bhatt MD Review of Systems Review of Systems Systems Reviewed: All systems reviewed, normal except as documented Exam Vital Signs Temp Pulse Resp BP Pulse Ox O2 Del Method 97.3 F 70 20 163/81 H 98 Room Air 03/24/24 09:57 03/24/24 09:57 03/24/24 09:57 03/24/24 09:57 03/24/24 09:57 03/24/24 09:57 Narrative Exam GENERAL: Awake, alert and oriented. No acute distress. HEENT: Normocephalic, atraumatic and nontender.? Pupils are equal and reactive to light and accommodation.? Oral mucosa moist. NECK: Supple without adenopathy. Traquea midline. Nontender, carotid pulse 2+ bilaterally without bruits, no JVD.? CHEST: Heart rate and rythm normal, no murmurs, gallops auscultated. S1 & 2 normal insensity. Nontender on palpation, no deformity and no crepitus. LUNGS: Lung sounds are clear.? No wheezing, rales or ronchi.? No intercostal subcostal retraction. Room air ABDOMEN: Soft,symmetric , nontender, no guarding or rebound tenderness. No abnormal masses palpated.?Bowel sounds are normoactive in all 4 quadrants. EXTREMITIES: Nontender.? No pitting edema.? No cyanosis.? Patient is able to move all 4 extremities. SKIN:excoriations on lower extremities NEURO:? Cranial nerves intact.? There is no focalization.? GCS is 15. Results Labs 03/25/24 04:46 03/25/24 04:46 Labs: Short CBC 03/23/24 03/24/24 Range/Units 18:36 04:20 WBC 11.2 H 9.9 (3.8-10.6) Thou/mm3 Hgb 13.8 14.1 (13.5-16.0) g/dL Hct 41.3 40.9 L (41.0-53.0) % Plt Count 220 207 (140-440) Thou/mm3 BMP 03/23/24 03/24/24 18:36 04:20 Sodium 142 141 Potassium 4.2 3.8 Chloride 107 108 H Carbon Dioxide 29.8 27.8 BUN 16 13 Creatinine 1.0 0.8 Glucose 104 106 Calcium 9.1 8.9 Cardiac Enzymes 03/24/24 Range/Units 04:20 Total Creatine Kinase 163 (34-171) U/L Liver Function 03/23/24 03/24/24 Range/Units 18:36 04:20 Total Bilirubin 0.5 0.7 (0.3-1.2) mg/dL AST 16 12 (0-34) U/L ALT < 7 L < 7 L (10-49) U/L Alkaline Phosphatase 150 H 147 H (46-116) U/L Albumin 4.3 4.1 (3.4-4.8) gm/dL Urine 03/23/24 Range/Units 21:10 Urine Color Yellow (Lt Yel-Yel) Urine Clarity Turbid A (Clear/Hazy) Urine pH 7.0 (5.0-7.0) Ur Specific [place] 1.018 (1.001-1.035) Urine Protein Trace (Neg - Trace) Urine Glucose (UA) Negative (Negative) Quality Measures Quality Measures none Advance care planning discussed with:: patient Medications Home Medications and Allergies Home Medications ?Medication ?Instructions ?Recorded ?Confirmed ?Type amantadine HCl 100 mg capsule 1 cap PO QDAY 10/02/21 03/24/24 History carbidopa ER 50 mg-levodopa 200 mg 1 tab PO Q12H 10/02/21 03/24/24 History tablet,extended release entacapone 200 mg tablet 1 tab PO Q12H 10/02/21 03/24/24 History finasteride 5 mg tablet 1 tab PO HS 10/02/21 03/24/24 History pramipexole 0.5 mg tablet 1 tab PO Q8H 10/02/21 03/24/24 History trihexyphenidyl 5 mg tablet 2 mg PO BID 01/19/22 03/24/24 History lisinopril 40 mg tablet 40 mg PO QDAY 03/24/24 03/24/24 History meloxicam 15 mg tablet 15 mg PO QDAY 03/24/24 03/24/24 History pimavanserin 34 mg capsule 34 mg PO QDAY 03/24/24 03/24/24 History tamsulosin 0.4 mg capsule 0.4 mg PO QDAY 03/24/24 03/24/24 History tamsulosin 0.4 mg capsule mg PO 03/24/24 History tamsulosin 0.4 mg capsule mg PO 03/24/24 History Allergies Allergy/AdvReac Type Severity Reaction Status Date / Time No Known Allergies Allergy Verified 05/10/23 09:17 Visit Medications Acetaminophen (Acetaminophen 325 Mg Tablet) 650 mg PO Q6H PRN PRN Reason: Pain 1-3 or Fever >100.3 Stop: 04/22/24 23:15 Amantadine HCl (Amantadine Hcl 100 Mg Capsule) 100 mg PO BID [facility] Stop: 03/31/24 08:59 Last Admin: 03/24/24 09:26 Dose: 100 mg Carbidopa/Levodopa (Carbidopa/Levodopa Cr 50/200 Tabcr) 1 tab PO TID [facility] Stop: 04/22/24 23:29 Last Admin: 03/24/24 08:29 Dose: Not Given Entacapone (Entacapone 200 Mg Tablet (Non-Formulary)) 200 mg PO BID [facility] Stop: 04/22/24 08:59 Last Admin: 03/24/24 09:34 Dose: Not Given Finasteride (Finasteride 5 Mg Tablet) 5 mg PO QDAY [facility] Stop: 04/23/24 08:59 Last Admin: 03/24/24 09:27 Dose: 5 mg Heparin Sodium (Porcine) (Heparin Sod Inj 5000 Unit/Ml Vial) 5,000 unit SC Q12HR BRY Stop: 04/07/24 08:59 Last Admin: 03/24/24 09:29 Dose: 5,000 unit Ceftriaxone Sodium/Dextrose (Rocephin/D5w 1gm Iv Premix) 50 mls @ 100 mls/hr IV HS BRY Stop: 03/31/24 20:59 Lisinopril (Lisinopril 20 Mg Tablet) 40 mg PO HS BRY Stop: 04/22/24 23:29 Last Admin: 03/24/24 00:55 Dose: 40 mg Home Medication- Please Speak With Patient Caregiver To Have Rx Brought To [facility] 2 mg PO BID BRY Stop: 04/22/24 23:44 Ondansetron HCl (Ondansetron Inj 2 Mg/Ml Inj 2 Ml) 4 mg IV Q6H PRN; Protocol PRN Reason: NAUSEA OR VOMITING Stop: 04/22/24 23:15 Pramipexole Dihydrochloride (Pramipexole 0.25 Mg Tablet) 0.5 mg PO TID [facility] Stop: 04/22/24 23:29 Last Admin: 03/24/24 08:33 Dose: Not Given Sennosides (Senna Tablet) 1 tab PO QDAY [facility]; Protocol Stop: 04/23/24 08:59 Last Admin: 03/24/24 09:25 Dose: 1 tab Tamsulosin HCl (Tamsulosin Hcl 0.4 Mg Capsule) 0.4 mg PO QDAY BRY Stop: 04/23/24 08:59 Last Admin: 03/24/24 09:25 Dose: 0.4 mg Discontinued Medications Ceftriaxone Sodium 1,000 mg/ (Sodium Chloride) 50 mls @ 100 mls/hr IV X1 ONE Stop: 03/23/24 23:04 Last Infusion: 03/24/24 01:30 Dose: Infused Assessment & Plan Plan 78-year-old male with a past medical history of Parkinson disease, BPH, hypertension, hyperlipidemia who presented to the ED on 03/23/2024 after a 2-week history of multiple falls. Patient refers feeling progressively weaker, trips easily, he denies losing consciousness or hitting his head. He was hospitalized in August for similar symptoms as he presented with weakness and multiple falls. He has been followed by neurologist Dr. Finch outpatient. ED course: In the ED, patient was afebrile but hypertensive with blood pressure in the 180s, saturating 90% on room air. Head CT was done which shows negative for any acute processes. On labs, WBC 11.2 Hgb 13.8 PLT 220 sodium 142 potassium 4.2 CL 107 BUN and creatinine normal ALP 115. UA turbid urine with 3+ blood 1828 RBC and 14 WBC with positive esterase, but no bacteria. The patient was admitted for further evaluation, neurology consulted to reevaluate medications. #Parkinson's Disease #Recurrent falls -Patient currently taking:Amantadine, Carbidopa/levodopa, Entacapone, Pramipexole and Trihexyphenidyl? -Recurrent falls likely due to disease progression -Recommendations: No changes in current medications, PT evaluation, might need placement at SNF, family and patient to decide. Patient's care discussed with attending physician, Dr Stef Juárez MD PGY3 Attending Provider Attestation/Addendum I personally have seen and examined the patient at the bedside and agree with resident findings, assessment and plan of care. Noted intermittent confusion disorientation, visual hallucinations worsening from before oriented weakness are most likely related to currently urinary tract infection. Things get better with treatment bladder infection. Encouraged him to participate with therapy sessions.
--- NOTE | 2024-03-24 13:45 | ESPR_ITS ---
<Statement entered by Hillary Johnson MD - 03/24/24 18:30> I discussed with and supervised my co-resident involved in the care of this patient. I agree with the assessment and plan as documented above. Patient is a 78-year-old gentleman with a past medical history history of Parkinson's, followed by neurologist Dr Finch, who comes to the ER after having multiple falls at home. He states is gotten worse over the last month. He states that sometimes he can feel it coming on but he doesn't feel lightheaded when it does; he describes a feeling more of as his legs are about to give up and he has to sit down. We will follow-up with neurology recommendations and continue all his home Parkinson's medicines and have PT evaluate him. Hillary Johnson MD PGY-2 Documentation for date of: 03/24/24 Subjective Subjective Interval history: Patient is a 78-year-old male with a past medical history of Parkinson's, hypertension, hyperlipidemia, BPH, recurrent ground-level falls, and history of back surgery for lumbar reconstruction about 1 year ago, and TURP. No overnight events reported for patient. Patient states that he has frequent recurrent ground-level falls and denies head trauma. Patient denied seizure- like activity. Patient denied dizziness. Patient denied loss of consciousness. Patient denied chest pain or dyspnea. Patient denied any urinary incontinence. Patient still has full sensation of inner thighs. Denied parenthesis of lower extremities. Denied any loss of bowel movement. Past medical history of transurethral resection of the prostate (TURP). Exam Vital Signs Temp Pulse Resp BP Pulse Ox O2 Del Method 97.7 F 66 16 168/87 H 98 Room Air 03/24/24 12:23 03/24/24 12:23 03/24/24 12:23 03/24/24 12:23 03/24/24 12:23 03/24/24 12:23 Narrative Exam General Appearance: Alert & Oriented X3, well-nourished male who is lying in bed in no acute distress HEENT: Skull symmetrical and atraumatic. Conjunctivae pink and moist. Pupils equal, round, reactive to light and accommodation (PERRL). External ear without lesion or discharge. Straight, nares patient, mucosa pink, no discharge. No thyroid nodule appreciated. No cervical lymphadenopathy. Cardio: Normal Rate and Rhythm with S1 and S2 heart sounds. No murmurs or extra heart sounds auscultated. No bruits on carotid auscultation. No peripheral edema or cyanosis. Lungs: Symmetric with good expansion. Chest and back non-tender. Breath sounds vesicular without crackles, wheezing or rhonchi Abdomen: Non-tender, Non-distended, Normal Reactive Bowel Sounds Neuro: Alert, cooperative, oriented to person, place, and time. Speech clear. CN grossly intact. Upper motor strength 5/5 and Lower motor strength 3/5. Sensation intact. Objective Labs 03/25/24 04:46 03/25/24 04:46 Labs: Laboratory Results - last 24 hr 03/23/24 03/23/24 03/24/24 18:36 21:10 04:20 WBC 11.2 H 9.9 RBC 4.64 4.71 Hgb 13.8 14.1 Hct 41.3 40.9 L MCV 89 87 MCH 29.7 29.9 MCHC 33.4 34.5 RDW Std Deviation 45.4 H 44.3 H Plt Count 220 207 Neut % (Auto) 75 78 Lymph % (Auto) 14 12 [place] % (Auto) 9 7 Eos % (Auto) 1 2 Baso % (Auto) 1 1 Neut # (Auto) 8.4 H 7.8 H Lymph # (Auto) 1.5 1.2 [place] # (Auto) 1.0 H 0.7 Eos # (Auto) 0.1 0.2 Baso # (Auto) 0.1 0.1 Immature Gran # (Auto) 0.03 H 0.02 H Absolute Nucleated RBC 0.00 0.00 Immature Gran % 0 0 Nucleated RBC % 0 0 Sodium 142 141 Potassium 4.2 3.8 Chloride 107 108 H Carbon Dioxide 29.8 27.8 Anion Gap 5 L 5 L BUN 16 13 Creatinine 1.0 0.8 Estim Creat Clear Calc 54.6 L 68.3 eGFR > 60 > 60 BUN/Creatinine Ratio 16 16 Glucose 104 106 Calculated Osmolality 284 281 Calcium 9.1 8.9 Corrected Calcium 9.1 8.9 Phosphorus 3.1 Magnesium 2.2 Total Bilirubin 0.5 0.7 AST 16 12 ALT < 7 L < 7 L Alkaline Phosphatase 150 H 147 H Total Creatine Kinase 163 Total Protein 6.2 6.0 Albumin 4.3 4.1 Globulin 1.9 L 1.9 L Albumin/Globulin Ratio 2.3 H 2.2 Triglycerides 72 Cholesterol 140 LDL Cholesterol, Calc 81 HDL Cholesterol 45 Cholesterol/HDL Ratio 3.1 L TSH 0.88 Ur Collection Type Voided Urine Color Yellow Urine Clarity Turbid A Urine pH 7.0 Ur Specific [place] 1.018 Urine Protein Trace Urine Glucose (UA) Negative Urine Ketones Negative Urine Blood 3+ A Urine Nitrite Negative Urine Bilirubin Negative Urine Urobilinogen (Auto) Negative Ur Leukocyte Esterase Positive Urine RBC 1828 H Urine WBC 14 H Ur Squamous Epith Cells < 1 Urine Bacteria None Quality Measures Quality Measures none Advance care planning discussed with:: patient Assessment & Plan Assessment Current Active Medications: Generic Name Dose Route Start Last Admin Trade Name Freq PRN Reason Stop Dose Admin Acetaminophen 650 mg 03/23/24 23:16 Acetaminophen 325 Mg Tablet PO 04/22/24 23:15 Q6H PRN Pain 1-3 or Fever >100.3 Amantadine HCl 100 mg 03/24/24 09:00 03/24/24 09:26 Amantadine Hcl 100 Mg Capsule PO 03/31/24 08:59 100 mg BID BRY Administration Carbidopa/Levodopa 1 tab 03/23/24 23:30 03/24/24 08:29 Carbidopa/Levodopa Cr 50/200 Tabcr PO 04/22/24 23:29 Not Given TID BRY Trihexyphenidyl 2mg 0 ea 03/24/24 12:30 Tablet PO 04/23/24 12:29 BID BRY Entacapone 200 mg 03/23/24 09:00 03/24/24 09:34 Entacapone 200 Mg Tablet (Non-Formulary) PO 04/22/24 08:59 Not Given BID BRY Finasteride 5 mg 03/24/24 09:00 03/24/24 09:27 Finasteride 5 Mg Tablet PO 04/23/24 08:59 5 mg QDAY BRY Administration Heparin Sodium (Porcine) 5,000 unit 03/24/24 09:00 03/24/24 09:29 Heparin Sod Inj 5000 Unit/Ml Vial SC 04/07/24 08:59 5,000 unit Q12HR BRY Administration Ceftriaxone Sodium/Dextrose 50 mls @ 100 mls/hr 03/24/24 21:00 Rocephin/D5w 1gm Iv Premix IV 03/31/24 20:59 HS BRY Lisinopril 40 mg 03/23/24 23:30 03/24/24 00:55 Lisinopril 20 Mg Tablet PO 04/22/24 23:29 40 mg HS BRY Administration Ondansetron HCl 4 mg 03/23/24 23:16 Ondansetron Inj 2 Mg/Ml Inj 2 Ml IV 04/22/24 23:15 Q6H PRN NAUSEA OR VOMITING Protocol Pramipexole Dihydrochloride 0.5 mg 03/23/24 23:30 03/24/24 08:33 Pramipexole 0.25 Mg Tablet PO 04/22/24 23:29 Not Given TID BRY Sennosides 1 tab 03/24/24 09:00 03/24/24 09:25 Senna Tablet PO 04/23/24 08:59 1 tab QDAY [facility] Administration Protocol Tamsulosin HCl 0.4 mg 03/24/24 09:00 03/24/24 09:25 Tamsulosin Hcl 0.4 Mg Capsule PO 04/23/24 08:59 0.4 mg QDAY [facility] Administration Plan Patient is a 78-year-old male with a past medical history of Parkinson's, hypertension, hyperlipidemia, BPH, recurrent ground-level falls, and history of back surgery for lumbar reconstruction about 1 year ago, and TURP. #Parkinson's Disease #Ground Level Falls #Complicated UTI History of repeated ground level falls, given history of Parkinson's disease likely secondary to disease progression. UTI likely contributing to frequent ground levels. Less likely secondary to lumbar abscess form previous lumbar surgery given no loss of sensation or loss of bowel movements. Less likely secondary to hypotension as patient denied dizziness. At baseline patient uses a walker. Lives at home with daughter who is primary home care associate. Diagnostics: CT: negative Plan: -Continue home medication -Carbidopa/Levodopa, Pramipexole 0.5 mg PO TID, Entacapone 200 mg PO BID, and Amantadine, and Trihexyphenidly -PT consulted. -Neurology consult, appreciate recommendations #Hypertension Plan -Continue home medication, Lisinpril 40 mg QDay #Complicated UTI #Dysuria Past meical history of recurrent UTI. Deneid urinary retention. History of Klebsiella and Proteus Mirabilis. Consider bladder scan. Plan -Urine Culture-Pending -Ceftriaxone (03/24/2024--) -Bladder Scan as needed #BPH #TURM Plan -Resume home medication of Tamsulosin 0.4 mg PO QDay Health Maintenance: Disp: Pt is currently admitted to floors for further management of complicated UTI, awaiting PT FEN: Diet Cardiac DVT: on subQ heparin Code: Full code - The patient's plan was discussed with attending Dr. Angelo and senior residents Dr. Elizabeth Jimenez MD PGY1 Internal Medicine Attending Provider Attestation/Addendum I, Mayra Angelo DO, attest that I was physically present for the carroll portions of the service and evaluated the patient with the resident and I reviewed and discussed the case with the resident and agree with the resident's findings and plans of care as documented above Patient seen and evaluated this AM. He reports frequent falls and b/l knees giving out, feeling like jello . Patient denies any loss of consciousness, head trauma, dizziness, lightheadedness, chest pain or shortness of breath associated with these episodes. He had a TURP earlier this year and denies any issues with urinary frequency, straining or dysuria. Suspect symptoms to be associated with patient's Parkinson's disease. Will have PT work with pt and f/u with neurology recommendations.
[2024-03-24] MEDS: TRIHEXYPHENIDYL 2MG TABLET PO ×2 (14:50→21:56)
[2024-03-24] MEDS: Home Medication- Please speak with patient caregiver to have Rx brought to PHA 2 EA PO (15:30)
--- NOTE | 2024-03-24 16:41 | PC.NURSE ---
Patient's brief changed to a clean, dry brief. Patient tolerated well.
[2024-03-24] MEDS: cefTRIAXone/D5w 1gm IV premix 50 ML IV (21:55)
[2024-03-25] VITALS (9 sets, daily range): BP systolic 121–138; BP diastolic 59–77; PULSE 68–81; RESP 16–96; TEMP 36.1–36.8; O2SAT 96–98; BMI 12.0
[2024-03-25 05:27] LABS: Basophils # (Auto) 0.1 Thou/mm3 (0.0-0.2); Basophils % (Auto) 1 % (0-2.5); Eosinophils # (Auto) 0.2 Thou/mm3 (0.0-0.5); Eosinophils % (Auto) 3 % (0-10); Hematocrit 40.2 % (41.0-53.0); Hemoglobin 13.9 g/dL (13.5-16.0); Immature Granulocytes % (Auto) 0 % (0-0); Immature Granulocytes Auto 0.02 Thou/mm3 (0.00-0.00); Lymphocytes # (Auto) 1.3 Thou/mm3 (1.0-4.8); Lymphocytes % (Auto) 15 % (10-50); Mean Corpuscular HGB Conc 34.6 g/dl (31.0-37.0); Mean Corpuscular Hemoglobin 30.2 pg (25.0-35.0); Mean Corpuscular Volume 87 fL (80-100); Monocytes # (Auto) 0.6 Thou/mm3 (0.0-0.8); Monocytes % (Auto) 8 % (0-12); Neutrophils # (Auto) 6.4 Thou/mm3 (1.8-7.7); Neutrophils % (Auto) 74 % (37-80); Nucleated Red Blood Cell % 0 /100 WBC (0); Platelet Count 150 Thou/mm3 (140-440); RDW Standard Deviation 44.7 fL (35.1-43.9); White Blood Count 8.6 Thou/mm3 (3.8-10.6)
[2024-03-25] MEDS: PRAMIPEXOLE 0.25 MG TABLET 0.5 MG PO ×3 (05:31→22:30)
[2024-03-25] MEDS: CARBIDOPA/LEVODOPA CR 50/200 TABCR 1 TAB PO ×3 (05:31→22:30)
[2024-03-25 06:11] LABS: Alanine Aminotransferase < 7 U/L (10-49); Albumin/Globulin Ratio 2.1 (1.2-2.2); Alkaline Phosphatase 141 U/L (46-116); Anion Gap 7 (7-16); Aspartate Amino Transferase 16 U/L (0-34); BUN/Creatinine Ratio 17 Ratio (12-20); Bilirubin,Total 0.6 mg/dL (0.3-1.2); Blood Urea Nitrogen 17 mg/dL (9-23); Calcium 9.1 mg/dL (8.3-10.6); Calcium (Corrected) 9.1 mg/dL (8.5-10.1); Carbon Dioxide 25.9 mMol/L (20.0-31.0); Chloride 107 mMol/L (98-107); Estimated Creatinine Clearance 77.9 mL/min (>60); Globulin 1.9 gm/dL (2.3-3.5); Glucose 109 mg/dL (74-106); Magnesium 2.1 mg/dL (1.6-2.6); Osmolality,Calculated 281 (275-295); Phosphorous 2.4 mg/dL (2.4-5.1); Potassium 3.8 mMol/L (3.4-5.1); Sodium 140 mMol/L (136-145); Total Protein 5.9 gm/dL (5.7-8.2); eGFR > 60 See Note
[2024-03-25] MEDS: FINASTERIDE 5 MG TABLET PO (08:27)
[2024-03-25] MEDS: TAMSULOSIN HCL 0.4 MG CAPSULE PO (08:27)
[2024-03-25] MEDS: HEPARIN SOD INJ 5000 UNIT/ML VIAL SC ×2 (08:27→22:32)
[2024-03-25] MEDS: TRIHEXYPHENIDYL 2MG TABLET PO ×2 (08:27→22:30)
[2024-03-25] MEDS: SENNA TABLET 1 TAB PO (08:27)
[2024-03-25] MEDS: ENTACAPONE 200 MG PO ×2 (09:53→22:32)
[2024-03-25] MEDS: amantadine HCL 100 MG CAPSULE PO ×2 (09:53→22:30)
--- NOTE | 2024-03-25 12:36 | ESPR_ITS ---
Documentation for date of: 03/25/24 Subjective Subjective Interval history: Patient is a 78-year-old male with a past medical history of Parkinson's, hypertension, hyperlipidemia, BPH, recurrent ground-level falls, and history of back surgery for lumbar reconstruction about 1 year ago, and TURP. No overnight events reported for patient. Patient examined at bedside. Patient deneid chest pain or dyspnea over night. Patient stated he was waiting for family to stop by today. Patient is pending PT evaluation and today was willing to try a subacute facility for rehabiliation. Exam Vital Signs Temp Pulse Resp BP Pulse Ox O2 Del Method 97.5 F 77 18 138/76 H 96 Room Air 03/25/24 08:00 03/25/24 08:00 03/25/24 08:00 03/25/24 08:00 03/25/24 08:00 03/25/24 08:00 Narrative Exam General Appearance: Alert & Oriented X3, well-nourished male who is lying in bed in no acute distress HEENT: Skull symmetrical and atraumatic. Conjunctivae pink and moist. Pupils equal, round, reactive to light and accommodation (PERRL). External ear without lesion or discharge. Straight, nares patient, mucosa pink, no discharge. No thyroid nodule appreciated. No cervical lymphadenopathy. Cardio: Normal Rate and Rhythm with S1 and S2 heart sounds. No murmurs or extra heart sounds auscultated. No bruits on carotid auscultation. No peripheral edema or cyanosis. Lungs: Symmetric with good expansion. Chest and back non-tender. Breath sounds vesicular without crackles, wheezing or rhonchi Abdomen: Non-tender, Non-distended, Normal Reactive Bowel Sounds Neuro: Alert, cooperative, oriented to person, place, and time. Speech clear. CN grossly intact. Upper motor strength 5/5 and Lower motor strength 3/5. Sensation intact. Objective Labs 03/26/24 05:02 03/26/24 05:02 Labs: Laboratory Results - last 24 hr 03/25/24 04:46 WBC 8.6 RBC 4.60 Hgb 13.9 Hct 40.2 L MCV 87 MCH 30.2 MCHC 34.6 RDW Std Deviation 44.7 H Plt Count 150 D Neut % (Auto) 74 Lymph % (Auto) 15 [place] % (Auto) 8 Eos % (Auto) 3 Baso % (Auto) 1 Neut # (Auto) 6.4 Lymph # (Auto) 1.3 [place] # (Auto) 0.6 Eos # (Auto) 0.2 Baso # (Auto) 0.1 Immature Gran # (Auto) 0.02 H Absolute Nucleated RBC 0.00 Immature Gran % 0 Nucleated RBC % 0 Sodium 140 Potassium 3.8 Chloride 107 Carbon Dioxide 25.9 Anion Gap 7 BUN 17 Creatinine 1.0 Estim Creat Clear Calc 77.9 eGFR > 60 BUN/Creatinine Ratio 17 Glucose 109 H Calculated Osmolality 281 Calcium 9.1 Corrected Calcium 9.1 Phosphorus 2.4 Magnesium 2.1 Total Bilirubin 0.6 AST 16 ALT < 7 L Alkaline Phosphatase 141 H Total Protein 5.9 Albumin 4.0 Globulin 1.9 L Albumin/Globulin Ratio 2.1 Quality Measures Quality Measures none Advance care planning discussed with:: patient Assessment & Plan Assessment Current Active Medications: Generic Name Dose Route Start Last Admin Trade Name Freq PRN Reason Stop Dose Admin Acetaminophen 650 mg 03/23/24 23:16 Acetaminophen 325 Mg Tablet PO 04/22/24 23:15 Q6H PRN Pain 1-3 or Fever >100.3 Amantadine HCl 100 mg 03/24/24 09:00 03/25/24 09:53 Amantadine Hcl 100 Mg Capsule PO 03/31/24 08:59 100 mg BID BRY Administration Carbidopa/Levodopa 1 tab 03/23/24 23:30 03/25/24 05:31 Carbidopa/Levodopa Cr 50/200 Tabcr PO 04/22/24 23:29 1 tab TID BRY Administration Trihexyphenidyl 2mg 0 ea 03/24/24 12:30 03/25/24 08:27 Tablet PO 04/23/24 12:29 1 tablet BID BRY Administration Entacapone 200 mg 03/23/24 09:00 03/25/24 09:53 Entacapone 200 Mg Tablet (Non-Formulary) PO 04/22/24 08:59 200 mg BID BRY Administration Finasteride 5 mg 03/24/24 09:00 03/25/24 08:27 Finasteride 5 Mg Tablet PO 04/23/24 08:59 5 mg QDAY BRY Administration Heparin Sodium (Porcine) 5,000 unit 03/24/24 09:00 03/25/24 08:27 Heparin Sod Inj 5000 Unit/Ml Vial SC 04/07/24 08:59 5,000 unit Q12HR BRY Administration Ceftriaxone Sodium/Dextrose 50 mls @ 100 mls/hr 03/24/24 21:00 03/24/24 21:55 Rocephin/D5w 1gm Iv Premix IV 03/31/24 20:59 100 mls/hr HS BRY Administration Lisinopril 40 mg 03/23/24 23:30 03/24/24 21:56 Lisinopril 20 Mg Tablet PO 04/22/24 23:29 40 mg HS BRY Administration Ondansetron HCl 4 mg 03/23/24 23:16 Ondansetron Inj 2 Mg/Ml Inj 2 Ml IV 04/22/24 23:15 Q6H PRN NAUSEA OR VOMITING Protocol Pramipexole Dihydrochloride 0.5 mg 03/23/24 23:30 03/25/24 05:31 Pramipexole 0.25 Mg Tablet PO 04/22/24 23:29 0.5 mg TID BRY Administration Sennosides 1 tab 03/24/24 09:00 03/25/24 08:27 Senna Tablet PO 04/23/24 08:59 1 tab QDAY BRY Administration Protocol Tamsulosin HCl 0.4 mg 03/24/24 09:00 03/25/24 08:27 Tamsulosin Hcl 0.4 Mg Capsule PO 04/23/24 08:59 0.4 mg QDAY BRY Administration Plan Patient is a 78-year-old male with a past medical history of Parkinson's, hypertension, hyperlipidemia, BPH, recurrent ground-level falls, and history of back surgery for lumbar reconstruction about 1 year ago, and TURP. #Parkinson's Disease #Ground Level Falls #Complicated UTI History of repeated ground level falls, given history of Parkinson's disease likely secondary to disease progression. UTI likely contributing to frequent ground levels. Less likely secondary to lumbar abscess form previous lumbar surgery given no loss of sensation or loss of bowel movements. Less likely secondary to hypotension as patient denied dizziness. At baseline patient uses a walker. Lives at home with daughter who is primary neonatal intensive care unit nurse. 03/25/2024: Neuorlogy, stated likely secondary to progression of Parkinson's disease, please continue current treatment. PT-recommendations, SNF for continued physical therapy Diagnostics: CT Head: negative Plan: -Continue home medication -Carbidopa/Levodopa, Pramipexole 0.5 mg PO TID, Entacapone 200 mg PO BID, and Amantadine, and Trihexyphenidly -PT consulted. -Neurology consult, Dr. Finch, appreciate recommendations #Hypertension Plan -Continue home medication, Lisinopril 40 mg QDay #Complicated UTI #Dysuria Past meical history of recurrent UTI. Denied urinary retention. History of Klebsiella and Proteus Mirabilis. Consider bladder scan. Plan -Urine Culture-Pending -Ceftriaxone (03/24/2024-03/29/2024) -Bladder Scan as needed #BPH #TURM Plan -Resume home medication of Tamsulosin 0.4 mg PO QDay Health Maintenance: Disp: Pt is currently admitted to floors for further management of complicated UTI, awaiting PT FEN: Diet Cardiac DVT: on subQ heparin Code: Full code - The patient's plan was discussed with attending Dr. Kingsley and senior residents Dr. Elizabeth Jimenez MD PGY1 Internal Medicine Attending Provider Attestation/Addendum I have discussed and was present for the essential components of the history, physical examination, diagnosis, and treatment plan with the resident. I agree with the patient's care as documented by the resident and amended herein by me. Ceferino Kingsley DO. Although this document has been carefully reviewed, there may still be some phonetic and other typographical errors. These errors are purely grammatical due to imperfections in the software program and should not be construed in any way to compromise the substance of the patient's medical care during this visit.
--- NOTE | 2024-03-25 13:01 | PC.SS ---
SS follow up note; SS submitted SNF referral through [facility]. Patient's daughter, Aravind would like [facility]. SS contacted Charmaine from [facility] and she is able to take patient when medically cleared. PASSR Done.
--- NOTE | 2024-03-25 21:25 | PD.NEUROPROG ---
Documentation for date of: 03/25/24 Subjective Subjective Interval history: Patient was seen and MedSurg today with no new symptoms. His mental status is much better compared to yesterday. Exam - Neurology Vital Signs Temp Pulse Resp BP Pulse Ox O2 Del Method 97.1 F 70 17 138/77 H 98 Room Air 03/25/24 20:00 03/25/24 20:00 03/25/24 20:00 03/25/24 20:00 03/25/24 20:00 03/25/24 20:00 Narrative Exam GENERAL APPEARANCE: Well hydrated, well-nourished in no acute distress. HEENT: Normocephalic, atraumatic, extraocular movements intact. Pupils: Equal reacting to light NECK: Supple, no JVD or bruits. CARDIOVASULAR: Heart: S1, S2 heard, regular without S3-S4 or murmur no rubs or gallops. LUNGS/CHEST: Clear to auscultation bilaterally. No rails, rhonchi, or wheezing. Normal inspection. ABDOMEN: Soft, nontender, with normal bowel sounds. No pulsatile masses. No rebound, rigidity, or guarding. Normal inspection and palpation. EXTREMITIES: Normal inspection and palpation. No edema, clubbing or cyanosis. SKIN: Warm and dry without rashes. Normal inspection. MUSCULOSKELETAL: No cervical, thoracic, lumbar or midline bony tenderness. Normal inspection. NEURO: Alert, awake and oriented x2. Cranial nerves: II through XII grossly intact. Speech and language: Normal with no dysarthria or dysphasia. Motor system: Tone and bulk: Normal: Strength: moves all 4 extremities; No pronator drift noted. Deep tendon reflexes: 1+ bilaterally symmetrical. Plantar reflex: Downgoing bilaterally. Sensory system: Intact to all modalities of sensation bilaterally. Rest of the exam: Limited, no signs of meningeal irritation noted. PSYCHIATRIC: Normal mood and affect. Objective Labs 03/25/24 04:46 03/25/24 04:46 Labs: Laboratory Results - last 24 hr 03/25/24 04:46 WBC 8.6 RBC 4.60 Hgb 13.9 Hct 40.2 L MCV 87 MCH 30.2 MCHC 34.6 RDW Std Deviation 44.7 H Plt Count 150 D Neut % (Auto) 74 Lymph % (Auto) 15 [place] % (Auto) 8 Eos % (Auto) 3 Baso % (Auto) 1 Neut # (Auto) 6.4 Lymph # (Auto) 1.3 [place] # (Auto) 0.6 Eos # (Auto) 0.2 Baso # (Auto) 0.1 Immature Gran # (Auto) 0.02 H Absolute Nucleated RBC 0.00 Immature Gran % 0 Nucleated RBC % 0 Sodium 140 Potassium 3.8 Chloride 107 Carbon Dioxide 25.9 Anion Gap 7 BUN 17 Creatinine 1.0 Estim Creat Clear Calc 77.9 eGFR > 60 BUN/Creatinine Ratio 17 Glucose 109 H Calculated Osmolality 281 Calcium 9.1 Corrected Calcium 9.1 Phosphorus 2.4 Magnesium 2.1 Total Bilirubin 0.6 AST 16 ALT < 7 L Alkaline Phosphatase 141 H Total Protein 5.9 Albumin 4.0 Globulin 1.9 L Albumin/Globulin Ratio 2.1 Assessment & Plan Assessment and plan (1) Parkinsons disease: Status: Acute Assessment and plan: As the weakness have gotten progressively worse with the recent year infection, he definitely benefit from inpatient replacement. Noted worsening frequency of falls more hallucinations despite treatment could be from urinary tract infection. (2) Acute UTI: Status: Acute Assessment and plan: Continue with IV antibiotics (3) Generalized weakness: Status: Acute Assessment and plan: Encouraged him to participate with the physical therapy sessions slowly.
[2024-03-25] MEDS: Lisinopril 20 MG TABLET 40 MG PO (22:29)
[2024-03-25] MEDS: cefTRIAXone/D5w 1gm IV premix 50 ML IV (22:32)
[2024-03-26] VITALS (8 sets, daily range): BP systolic 123–148; BP diastolic 64–84; PULSE 70–77; RESP 16–94; TEMP 36.2–36.9; O2SAT 96–100
[2024-03-26] MEDS: PRAMIPEXOLE 0.25 MG TABLET 0.5 MG PO ×3 (05:18→21:18)
[2024-03-26] MEDS: CARBIDOPA/LEVODOPA CR 50/200 TABCR 1 TAB PO ×3 (05:18→21:18)
[2024-03-26 06:17] LABS: Basophils % (Auto) 0 % (0-2.5); Eosinophils # (Auto) 0.2 Thou/mm3 (0.0-0.5); Eosinophils % (Auto) 2 % (0-10); Hematocrit 41.2 % (41.0-53.0); Hemoglobin 13.8 g/dL (13.5-16.0); Immature Granulocytes % (Auto) 0 % (0-0); Immature Granulocytes Auto 0.03 Thou/mm3 (0.00-0.00); Lymphocytes # (Auto) 1.4 Thou/mm3 (1.0-4.8); Lymphocytes % (Auto) 14 % (10-50); Mean Corpuscular HGB Conc 33.5 g/dl (31.0-37.0); Mean Corpuscular Hemoglobin 29.4 pg (25.0-35.0); Mean Corpuscular Volume 88 fL (80-100); Monocytes # (Auto) 0.7 Thou/mm3 (0.0-0.8); Monocytes % (Auto) 8 % (0-12); Neutrophils # (Auto) 7.3 Thou/mm3 (1.8-7.7); Neutrophils % (Auto) 76 % (37-80); Nucleated Red Blood Cell % 0 /100 WBC (0); Platelet Count 198 Thou/mm3 (140-440); RDW Standard Deviation 44.7 fL (35.1-43.9); Red Blood Count 4.69 Miln/mm3 (4.50-5.90); White Blood Count 9.7 Thou/mm3 (3.8-10.6)
[2024-03-26 06:36] LABS: Alanine Aminotransferase < 7 U/L (10-49); Albumin/Globulin Ratio 2.2 (1.2-2.2); Alkaline Phosphatase 142 U/L (46-116); Anion Gap 5 (7-16); Aspartate Amino Transferase 12 U/L (0-34); BUN/Creatinine Ratio 18 Ratio (12-20); Bilirubin,Total 0.7 mg/dL (0.3-1.2); Blood Urea Nitrogen 16 mg/dL (9-23); Calcium 8.8 mg/dL (8.3-10.6); Calcium (Corrected) 8.8 mg/dL (8.5-10.1); Carbon Dioxide 27.6 mMol/L (20.0-31.0); Chloride 107 mMol/L (98-107); Creatinine (Component) 0.9 mg/dL (0.6-1.3); Estimated Creatinine Clearance 86.5 mL/min (>60); Globulin 1.8 gm/dL (2.3-3.5); Glucose 97 mg/dL (74-106); Magnesium 2.2 mg/dL (1.6-2.6); Osmolality,Calculated 280 (275-295); Phosphorous 2.7 mg/dL (2.4-5.1); Potassium 3.9 mMol/L (3.4-5.1); Sodium 140 mMol/L (136-145); Total Protein 5.8 gm/dL (5.7-8.2); eGFR > 60 See Note
--- NOTE | 2024-03-26 09:26 | PD.RESPRO ---
Documentation for date of: 03/26/24 Subjective Subjective Interval history: Patient was seen and examined at the bedside. Patient reported that he feels mild dizziness however has been feeling better. Vitals were stable today. Labs were unremarkable. Kidney functions remained stable. Patient's daughter came on the bedside and she was explained by the plan that we are awaiting currently on urine cultures and will likely anticipate discharge once the cultures comes back. PT recommended SNF placement in [facility]. We are currently giving him IV ceftriaxone for UTI. All labs and orders were reviewed. Exam Vital Signs Temp Pulse Resp BP Pulse Ox O2 Del Method 97.6 F 72 17 125/64 97 Room Air 03/26/24 08:00 03/26/24 08:00 03/26/24 08:00 03/26/24 08:00 03/26/24 08:00 03/26/24 08:00 Narrative Exam General Appearance: Alert & Oriented X3, well-nourished male who is lying in bed in no acute distress HEENT: Skull symmetrical and atraumatic. Conjunctivae pink and moist. Pupils equal, round, reactive to light and accommodation (PERRL). External ear without lesion or discharge. Straight, nares patient, mucosa pink, no discharge. No thyroid nodule appreciated. No cervical lymphadenopathy. Cardio: Normal Rate and Rhythm with S1 and S2 heart sounds. No murmurs or extra heart sounds auscultated. No bruits on carotid auscultation. No peripheral edema or cyanosis. Lungs: Symmetric with good expansion. Chest and back non-tender. Breath sounds vesicular without crackles, wheezing or rhonchi Abdomen: Non-tender, Non-distended, Normal Reactive Bowel Sounds Neuro: Alert, cooperative, oriented to person, place, and time. Speech clear. CN grossly intact. Upper motor strength 5/5 and Lower motor strength 3/5. Sensation intact. Objective Labs 03/26/24 05:02 03/26/24 05:02 Labs: Laboratory Results - last 24 hr 03/26/24 05:02 WBC 9.7 RBC 4.69 Hgb 13.8 Hct 41.2 MCV 88 MCH 29.4 MCHC 33.5 RDW Std Deviation 44.7 H Plt Count 198 D Neut % (Auto) 76 Lymph % (Auto) 14 [place] % (Auto) 8 Eos % (Auto) 2 Baso % (Auto) 0 Neut # (Auto) 7.3 Lymph # (Auto) 1.4 [place] # (Auto) 0.7 Eos # (Auto) 0.2 Baso # (Auto) 0.0 Immature Gran # (Auto) 0.03 H Absolute Nucleated RBC 0.00 Immature Gran % 0 Nucleated RBC % 0 Sodium 140 Potassium 3.9 Chloride 107 Carbon Dioxide 27.6 Anion Gap 5 L BUN 16 Creatinine 0.9 Estim Creat Clear Calc 86.5 eGFR > 60 BUN/Creatinine Ratio 18 Glucose 97 Calculated Osmolality 280 Calcium 8.8 Corrected Calcium 8.8 Phosphorus 2.7 Magnesium 2.2 Total Bilirubin 0.7 AST 12 ALT < 7 L Alkaline Phosphatase 142 H Total Protein 5.8 Albumin 4.0 Globulin 1.8 L Albumin/Globulin Ratio 2.2 Quality Measures Quality Measures VTE prophylaxis Advance care planning discussed with:: child Assessment & Plan Assessment Current Active Medications: Generic Name Dose Route Start Last Admin Trade Name Freq PRN Reason Stop Dose Admin Acetaminophen 650 mg 03/23/24 23:16 Acetaminophen 325 Mg Tablet PO 04/22/24 23:15 Q6H PRN Pain 1-3 or Fever >100.3 Amantadine HCl 100 mg 03/24/24 09:00 03/25/24 22:30 Amantadine Hcl 100 Mg Capsule PO 03/31/24 08:59 100 mg BID BRY Administration Carbidopa/Levodopa 1 tab 03/23/24 23:30 03/26/24 05:18 Carbidopa/Levodopa Cr 50/200 Tabcr PO 04/22/24 23:29 1 tab TID BRY Administration Trihexyphenidyl 2mg 0 ea 03/24/24 12:30 03/25/24 22:30 Tablet PO 04/23/24 12:29 1 tablet BID BRY Administration Entacapone 200 mg 03/23/24 09:00 03/25/24 22:32 Entacapone 200 Mg Tablet (Non-Formulary) PO 04/22/24 08:59 200 mg BID BRY Administration Finasteride 5 mg 03/24/24 09:00 03/25/24 08:27 Finasteride 5 Mg Tablet PO 04/23/24 08:59 5 mg QDAY BRY Administration Heparin Sodium (Porcine) 5,000 unit 03/24/24 09:00 03/25/24 22:32 Heparin Sod Inj 5000 Unit/Ml Vial SC 04/07/24 08:59 5,000 unit Q12HR BRY Administration Ceftriaxone Sodium/Dextrose 50 mls @ 100 mls/hr 03/24/24 21:00 03/25/24 22:32 Rocephin/D5w 1gm Iv Premix IV 03/31/24 20:59 100 mls/hr HS BRY Administration Lisinopril 40 mg 03/23/24 23:30 03/25/24 22:29 Lisinopril 20 Mg Tablet PO 04/22/24 23:29 40 mg HS BRY Administration Ondansetron HCl 4 mg 03/23/24 23:16 Ondansetron Inj 2 Mg/Ml Inj 2 Ml IV 04/22/24 23:15 Q6H PRN NAUSEA OR VOMITING Protocol Pramipexole Dihydrochloride 0.5 mg 03/23/24 23:30 03/26/24 05:18 Pramipexole 0.25 Mg Tablet PO 04/22/24 23:29 0.5 mg TID BRY Administration Sennosides 1 tab 03/24/24 09:00 03/25/24 08:27 Senna Tablet PO 04/23/24 08:59 1 tab QDAY BRY Administration Protocol Tamsulosin HCl 0.4 mg 03/24/24 09:00 03/25/24 08:27 Tamsulosin Hcl 0.4 Mg Capsule PO 04/23/24 08:59 0.4 mg QDAY BRY Administration Plan Patient is a 78-year-old male with a past medical history of Parkinson's, hypertension, hyperlipidemia, BPH, recurrent ground-level falls, and history of back surgery for lumbar reconstruction about 1 year ago, and TURP. Awaiting urine cultures for UTI. PT recommended SNF placement. #Parkinson's Disease #Ground Level Falls #Complicated UTI History of repeated ground level falls, given history of Parkinson's disease likely secondary to disease progression. UTI likely contributing to frequent ground levels. Less likely secondary to lumbar abscess form previous lumbar surgery given no loss of sensation or loss of bowel movements. Less likely secondary to hypotension as patient denied dizziness. At baseline patient uses a walker. Lives at home with daughter who is primary direct care specialist. 03/25/2024: Neuorlogy, stated likely secondary to progression of Parkinson's disease, please continue current treatment. Diagnostics: CT Head: negative Plan: ? Continuing IV antibiotic for UTI -Continue home medication -Carbidopa/Levodopa, Pramipexole 0.5 mg PO TID, Entacapone 200 mg PO BID, and Amantadine, and Trihexyphenidly -PT consulted recommended SNF placement [facility] -Neurology consult, Dr. Finch, appreciate recommendations #Hypertension Plan -Continue home medication, Lisinopril 40 mg QDay #Complicated UTI #Dysuria Past meical history of recurrent UTI. Denied urinary retention. History of Klebsiella and Proteus Mirabilis. Consider bladder scan. Plan -Urine Culture-Pending -Continuing ceftriaxone (03/24/2024-03/29/2024) -Bladder Scan as needed #BPH #TURM Plan -Resume home medication of Tamsulosin 0.4 mg PO QDay Health Maintenance: Disp: Pt is currently admitted to floors for further management of complicated UTI, PT recommended SNF placement. Awaiting urine cultures. FEN: Diet Cardiac DVT: on subQ heparin Code: Full code - Patient was seen and discussed with attending physician, DO Dr. Brayan Rios MD, PGY 2 Attending Provider Attestation/Addendum I have discussed and was present for the essential components of the history, physical examination, diagnosis, and treatment plan with the resident. I agree with the patient's care as documented by the resident and amended herein by me. Ceferino Kingsley DO. Although this document has been carefully reviewed, there may still be some phonetic and other typographical errors. These errors are purely grammatical due to imperfections in the software program and should not be construed in any way to compromise the substance of the patient's medical care during this visit.
[2024-03-26] MEDS: FINASTERIDE 5 MG TABLET PO (09:42)
[2024-03-26] MEDS: SENNA TABLET 1 TAB PO (09:42)
[2024-03-26] MEDS: TAMSULOSIN HCL 0.4 MG CAPSULE PO (09:42)
[2024-03-26] MEDS: ENTACAPONE 200 MG PO ×2 (09:43→21:08)
[2024-03-26] MEDS: amantadine HCL 100 MG CAPSULE PO ×2 (09:43→21:07)
[2024-03-26] MEDS: TRIHEXYPHENIDYL 2MG TABLET PO ×2 (09:43→21:08)
[2024-03-26] MEDS: HEPARIN SOD INJ 5000 UNIT/ML VIAL SC ×2 (09:44→21:20)
--- NOTE | 2024-03-26 13:53 | PC.SS ---
Rounding: Pending UA Cults
--- NOTE | 2024-03-26 15:58 | PC.SS ---
File exchanged pt [facility] to [facility]
[2024-03-26] MEDS: Lisinopril 20 MG TABLET 40 MG PO (21:09)
[2024-03-26] MEDS: cefTRIAXone/D5w 1gm IV premix 50 ML IV (21:13)
--- NOTE | 2024-03-26 23:35 | VVPN_ITS ---
Telemedicine visit statement This visit was conducted with the use of interactive audio and video telecommunications system that permits real time communication between the patient and the provider. Patient's verbal consent for virtual visit was obtained on 03/26/24 at 2335. Documentation for date of: 03/26/24 Virtual exam Vital Signs Temp Pulse Resp BP Pulse Ox O2 Del Method 98.4 F 76 19 133/71 H 96 Room Air 03/26/24 20:00 03/26/24 21:09 03/26/24 20:00 03/26/24 21:09 03/26/24 20:00 03/26/24 20:00 Objective Labs 03/26/24 05:02 03/26/24 05:02 Labs: Laboratory Results - last 24 hr 03/26/24 05:02 WBC 9.7 RBC 4.69 Hgb 13.8 Hct 41.2 MCV 88 MCH 29.4 MCHC 33.5 RDW Std Deviation 44.7 H Plt Count 198 D Neut % (Auto) 76 Lymph % (Auto) 14 [place] % (Auto) 8 Eos % (Auto) 2 Baso % (Auto) 0 Neut # (Auto) 7.3 Lymph # (Auto) 1.4 [place] # (Auto) 0.7 Eos # (Auto) 0.2 Baso # (Auto) 0.0 Immature Gran # (Auto) 0.03 H Absolute Nucleated RBC 0.00 Immature Gran % 0 Nucleated RBC % 0 Sodium 140 Potassium 3.9 Chloride 107 Carbon Dioxide 27.6 Anion Gap 5 L BUN 16 Creatinine 0.9 Estim Creat Clear Calc 86.5 eGFR > 60 BUN/Creatinine Ratio 18 Glucose 97 Calculated Osmolality 280 Calcium 8.8 Corrected Calcium 8.8 Phosphorus 2.7 Magnesium 2.2 Total Bilirubin 0.7 AST 12 ALT < 7 L Alkaline Phosphatase 142 H Total Protein 5.8 Albumin 4.0 Globulin 1.8 L Albumin/Globulin Ratio 2.2
[2024-03-27] VITALS: BP 149/78; PULSE 72; RESP 18; TEMP 36.6; O2SAT 97
[2024-03-27 04:00] VITALS: BP 148/80; PULSE 71; RESP 18; TEMP 36.1; O2SAT 97
[2024-03-27] MEDS: PRAMIPEXOLE 0.25 MG TABLET 0.5 MG PO ×2 (05:23→13:30)
[2024-03-27] MEDS: CARBIDOPA/LEVODOPA CR 50/200 TABCR 1 TAB PO ×2 (05:23→13:30)
[2024-03-27 05:57] LABS: Basophils # (Auto) 0.1 Thou/mm3 (0.0-0.2); Basophils % (Auto) 1 % (0-2.5); Eosinophils # (Auto) 0.2 Thou/mm3 (0.0-0.5); Eosinophils % (Auto) 2 % (0-10); Hematocrit 43.8 % (41.0-53.0); Hemoglobin 14.6 g/dL (13.5-16.0); Immature Granulocytes % (Auto) 0 % (0-0); Immature Granulocytes Auto 0.04 Thou/mm3 (0.00-0.00); Lymphocytes # (Auto) 1.6 Thou/mm3 (1.0-4.8); Lymphocytes % (Auto) 14 % (10-50); Mean Corpuscular HGB Conc 33.3 g/dl (31.0-37.0); Mean Corpuscular Hemoglobin 30.2 pg (25.0-35.0); Mean Corpuscular Volume 91 fL (80-100); Monocytes # (Auto) 0.9 Thou/mm3 (0.0-0.8); Monocytes % (Auto) 8 % (0-12); Neutrophils # (Auto) 8.2 Thou/mm3 (1.8-7.7); Neutrophils % (Auto) 74 % (37-80); Nucleated Red Blood Cell % 0 /100 WBC (0); Platelet Count 202 Thou/mm3 (140-440); RDW Standard Deviation 46.4 fL (35.1-43.9); Red Blood Count 4.83 Miln/mm3 (4.50-5.90)
[2024-03-27 06:18] LABS: Alanine Aminotransferase < 7 U/L (10-49); Albumin, Serum 3.9 gm/dL (3.4-4.8); Albumin/Globulin Ratio 1.9 (1.2-2.2); Alkaline Phosphatase 142 U/L (46-116); Anion Gap 6 (7-16); Aspartate Amino Transferase 18 U/L (0-34); BUN/Creatinine Ratio 17 Ratio (12-20); Bilirubin,Total 0.6 mg/dL (0.3-1.2); Blood Urea Nitrogen 17 mg/dL (9-23); Calcium 9.4 mg/dL (8.3-10.6); Calcium (Corrected) 9.5 mg/dL (8.5-10.1); Carbon Dioxide 26.9 mMol/L (20.0-31.0); Chloride 109 mMol/L (98-107); Estimated Creatinine Clearance 77.9 mL/min (>60); Globulin 2.1 gm/dL (2.3-3.5); Glucose 92 mg/dL (74-106); Magnesium 2.2 mg/dL (1.6-2.6); Osmolality,Calculated 284 (275-295); Phosphorous 3.3 mg/dL (2.4-5.1); Potassium 3.8 mMol/L (3.4-5.1); Sodium 142 mMol/L (136-145); eGFR > 60 See Note
[2024-03-27] MEDS: SENNA TABLET 1 TAB PO (07:57)
[2024-03-27] MEDS: amantadine HCL 100 MG CAPSULE PO (07:58)
[2024-03-27] MEDS: TAMSULOSIN HCL 0.4 MG CAPSULE PO (07:58)
[2024-03-27] MEDS: ENTACAPONE 200 MG PO (07:58)
[2024-03-27] MEDS: TRIHEXYPHENIDYL 2MG TABLET PO (07:59)
[2024-03-27 08:00] VITALS: BP 165/73; PULSE 85; RESP 18; TEMP 36.4; O2SAT 98
[2024-03-27] MEDS: HEPARIN SOD INJ 5000 UNIT/ML VIAL SC (08:01)
[2024-03-27] MEDS: FINASTERIDE 5 MG TABLET PO (08:05)
--- NOTE | 2024-03-27 11:13 | PC.SS ---
Addendum entered by LINDA Castano 03/27/24 15:02: Patient's daughter, Marry Conroy was notified. Addendum entered by LINDA Castano 03/27/24 15:01: [facility] confirmed ETA for 3:30pm. Bed side nurse and [facility] notified. Addendum entered by Hope Gomez [employer] 03/27/24 14:23: Transport on-will call with [facility]. ETA anticipated 3:30-4pm. Notified [facility] staff and bed side nurse Rhonda. Addendum entered by LINDA Castano 03/27/24 12:52: Correction: unable to leave voicemail. Addendum entered by Hope Gomez [facility] 03/27/24 12:50: Attempted contact with patient's daughter, Marry Conroy to notify her of patient's d/c plan. Left her a voicemail. Addendum entered by Hope Gomez MSW 03/27/24 12:49: Met with patient and family to confirm d/c plan for today. Transport scheduled with [facility]. Reference number:[id number]. Pending ETA for order picker/assembler. Bed side nurse Rhonda is aware. Original Note: SS update: plan is to d/c the patient to SNF today. Contacted Maya at [facility] and she confirmed they can accept the patient today. Medical team aware.
[2024-03-27 11:59] VITALS: BP 140/85; PULSE 71; RESP 18; TEMP 36.4; O2SAT 96
[2024-03-27 12:27] VITALS: BMI 34.5
[2024-03-27 15:10] VITALS: BP 125/72; PULSE 86; RESP 18; TEMP 37.1; O2SAT 96
--- NOTE | 2024-03-27 18:41 | ESDS_ITS ---
<Statement entered by Digna Hogan MD - 03/27/24 19:34> I discussed with and supervised my co-resident involved in the care of this patient. I agree with the assessment and plan as documented above. Digna Hogan,PGY-3 Disclaimer: Despite multiple revisions, due to the dictation software being used, the document below may not be free of grammatical errors including phonetic/typographic errors. However, this does not deter from our commitment to providing health care in the patient's best interest in mind. Planned Discharge Date 03/27/24 DS: Providers Provider Date of admission: 03/23/24 23:16 Primary care physician: Physician No Primary/Family Admitting Provider: Fredrick Bhatt MD Attending Provider on Admission: Fredrick Bhatt MD Consults: 03/23/24 23:35 Consult to Neurology / Tele-Neurology Stat Comment: Consulting Provider: Robert Finch 03/24/24 00:21 Referral Physical Therapy Routine Comment: Physician Instructions: Attending Provider on DC: Brigida Holloway MD Discharging Provider: Brigida Holloway MD DS: Diagnosis Problem List Completed Was Problem List Reviewed/Reconciled?: Yes Hospital Course Hospital Course Hospital course: The patient is a 78-year-old male with a past medical history of Parkinson disease, BPH, hypertension, hyperlipidemia who presented to the ED on 03/23/2024 after a 2-week history of multiple falls. Per the patient and at bedside, he has been in his usual state of health until about 2 weeks ago when he started to be consistently found either on the floor or falling off the couch as seen by relatives. He also reports that he has been unable to get up from toilet seat due to weakness. He denies loss of consciousness. Other than that, he has been pretty healthy in the last couple months.He was hospitalized in August for similar symptoms and he presented with weakness and multiple falls, further workup was done at the time and patient was discharged to SNF. He has been followed by neurologist Dr. Finch who advised the patient to come in for further evaluation and recommended admission for possible SNF placement.Head CT was unremarkable, abdomen pelvis CT showed perinephric stranding, UA was positive for UTI. He received antibiotics for UTI, urine cultures came back negative. PT assessed him, recommended SNF placement. Neurologist Dr Finch also saw him inpatient, recommended to continue current medication regimen and continue with PT. Patient was discharged to SNF 03/27/24. Hospital diagnoses: #Parkinson's Disease #Ground Level Falls #Hypertension #Complicated UTI, resolved #Dysuria #BPH #TURM Discharge recommendations: -Continue with carbidopa levodopa 50/200 mg tablets every 12 hours ? Continue entacapone 200 mg tablet every 12 hours ? Continue with pramipexole 0.5 mg 1 tablet every 8 hours ? Continue with Trihexyphenidyl 2 mg twice daily ? Continue pimavanserin 34 mg daily ? Continue amantadine 100 mg daily ? Continue other home medications as prescribed - Follow up with PCP in 1-2 weeks - Follow up with Dr. Landeros in 1 month Plan of care discussed with attending Dr. Kingsley and PGY-[address] Hogan. Brigida Holloway MD, PGY 1. Time Spent with Patient Time attestation: Total time spent providing and/or coordinating discharge services: Exam Vital Signs Temp Pulse Resp BP Pulse Ox O2 Del Method 98.7 F 86 18 125/72 96 Room Air 03/27/24 15:10 03/27/24 15:10 03/27/24 15:10 03/27/24 15:10 03/27/24 15:10 03/27/24 15:10 Narrative Exam Physical Exam General: Awake and in no acute distress. Conversational and non-toxic appearing. Comfortably resting in bed. HEENT: Normocephalic, atraumatic, mucous membranes moist. Heart: Regular rate and rhythm, no murmurs. Lungs: Clear to auscultation with no wheezing or crackles. Abdomen: Soft, nondistended, nontender, positive bowel sounds. ?No guarding or rebound tenderness. Neurologic: Alert and oriented x3, cogwheel rigidity, more on the right side. Extremities: No edema. Skin: No rash or ecchymoses. Abrasions on the upper and lower extremities. Discharge Plan Plan Patient Disposition: Xfer Skilled Nsg Fac (SNF) Patient condition on transfer: Stable Care Plan Goals: Discharge recommendations: -Continue with carbidopa levodopa 50/200 mg tablets every 12 hours ? Continue entacapone 200 mg tablet every 12 hours ? Continue with pramipexole 0.5 mg 1 tablet every 8 hours ? Continue with Trihexyphenidyl 2 mg twice daily ? Continue pimavanserin 34 mg daily ? Continue amantadine 100 mg daily ? Continue other home medications as prescribed - Follow up with PCP in 1-2 weeks - Follow up with Dr. Landeros in 1 month Prescriptions/Referrals Prescriptions/Med Rec: Continued carbidopa-levodopa 50-200 mg tablet extended release 1 tab PO Q12H amantadine HCl 100 mg capsule 1 cap PO QDAY pramipexole 0.5 mg tablet 1 tab PO Q8H entacapone 200 mg tablet 1 tab PO Q12H finasteride 5 mg tablet 1 tab PO HS trihexyphenidyl 5 mg Tablet 2 mg PO BID Rx Instructions: give with food (meal/snack) meloxicam 15 mg Tablet 15 mg PO QDAY lisinopril 40 mg Tablet 40 mg PO QDAY pimavanserin 34 mg Capsule 34 mg PO QDAY Changed tamsulosin 0.4 mg capsule 0.4 mg PO QDAY Qty: 30 1RF Patient Comments: TAKE 1 CAPSULE BY MOUTH EVERY NIGHT AT BEDTIME FOR BENIGN PROSTATIC HYPERPLASIA Discontinued tamsulosin 0.4 mg capsule PO Patient Comments: TAKE 1 CAPSULE BY MOUTH EVERY NIGHT AT BEDTIME FOR BENIGN PROSTATIC HYPERPLASIA tamsulosin 0.4 mg capsule 0.4 mg PO QDAY Referrals: No Primary/Family,Physician [Primary Care Provider] - Patient/Caregiver Discharge Instructions Education Materials: Parkinson Disease Common Sx Print Language: Faroese Stand Alone Forms: K[employer] Award Info., Patient Portal Info Letter Discharge Order Discharge Orders: Discharge (Routine); Ordered 03/27/24 Ordered By: Digna Hogan Quality Discharge Quality Measures VTE prophylaxis Attestestation MD Attestation I have discussed and was present for the essential components of the discharge history, physical examination, diagnosis, and discharge treatment plan with the resident. I agree with the patient's discharge care as documented by the resident and amended herein by me. Ceferino Kingsley DO. The patient understood all discharge instructions, all questions were answered satisfactorily. The patient was instructed to return to the Emergency Department is symptoms worsened or persisted. Although this document has been carefully reviewed, there may still be some phonetic and other typographical errors. These errors are purely grammatical due to imperfections in the software program and should not be construed in any way to compromise the substance of the patient's medical care during this visit.
== END 2024-03-27 15:29 | disposition skilled nursing facility (03) | DRG 690 ==
LOC: SERX 22:02 → SERHOLD 03-24 00:05 → S3SX 03-24 17:17
PROVIDERS: Admitting Provider Internal Medicine; Emergency Provider Emergency Medicine; Visit Provider Internal Medicine
DX: N39.0 Urinary tract infection, site not specified (principal); G20.A1 Parkinson's disease without dyskinesia, without mention of fluctuations; N40.0 Benign prostatic hyperplasia without lower urinary tract symptoms; I10 Essential (primary) hypertension; E78.5 Hyperlipidemia, unspecified; R44.1 Visual hallucinations; R29.6 Repeated falls; Z90.79 Acquired absence of other genital organ(s); Z79.899 Other long term (current) drug therapy; Z87.440 Personal history of urinary (tract) infections
CPT/HCPCS: 36415; 70450; 74176; 80053; 80061; 81001; 82550; 83735; 84100; 84443; 85025; 87040; 87086; 97162; 99291; J0696; J1643; J7050; A9270; J1644

== ENCOUNTER 2024-08-16 06:39 | Emergency (ER) | payer MEDICARE, MEDICAID, SELFPAY ==
[2024-08-16 06:42] VITALS: PULSE 83; RESP 14; O2SAT 97; BMI 33.8
[2024-08-16 07:04] VITALS: BP 173/92; PULSE 75; RESP 18; TEMP 36.7; O2SAT 96
--- NOTE | 2024-08-16 07:22 | PD.EDFALL ---
ED Fall Injury RME/HPI General Chief Complaint: Fall Stated Complaint: FALL Time Seen by Provider: 08/16/24 06:59 Arrival date/time: 08/16/24 06:39 RME / HPI RME / HPI Narrative: 79 year old male with history of dementia, Parkinson disease, BPH, hypertension, hyperlipidemia, back surgery, presented to the ER BIBA with a chief complain for a fall. Per EMS, patient initally complained of back pain but when arrived at eD had stated he was no longer in pain. Per EMS, patient originally was in a SNF for physical therapy due to back surgery but afterwards family took patient home. Per EMS patient had been home for 1 week and has fallen twice in the last 24 hours. Per EMS, family stated that patient had right leg weakness and due to dementia forgets of his limited mobility. LB=911/82, HR= 83, RR= 14, GCS= 14, SpO2= 97% on room air. Related Data Home Medications ?Medication ?Instructions ?Recorded ?Confirmed amantadine HCl 100 mg capsule 1 cap PO QDAY 10/02/21 03/24/24 carbidopa ER 50 mg-levodopa 200 mg 1 tab PO Q12H 10/02/21 03/24/24 tablet,extended release entacapone 200 mg tablet 1 tab PO Q12H 10/02/21 03/24/24 finasteride 5 mg tablet 1 tab PO HS 10/02/21 03/24/24 pramipexole 0.5 mg tablet 1 tab PO Q8H 10/02/21 03/24/24 trihexyphenidyl 5 mg tablet 2 mg PO BID 01/19/22 03/24/24 lisinopril 40 mg tablet 40 mg PO QDAY 03/24/24 03/24/24 meloxicam 15 mg tablet 15 mg PO QDAY 03/24/24 03/24/24 pimavanserin 34 mg capsule 34 mg PO QDAY 03/24/24 03/24/24 Previous Rx's ?Medication ?Instructions ?Recorded tamsulosin 0.4 mg capsule 0.4 mg PO QDAY #30 caps 03/27/24 Allergies Allergy/AdvReac Type Severity Reaction Status Date / Time No Known Allergies Allergy Verified 08/16/24 06:47 Review of Systems Review of Systems Systems Reviewed: All systems reviewed, normal except as documented Narrative Review of Systems: Gen: No fever, no chills, no weight loss EYES: No discharge, no visual changes, no pain HEENT: No ear pain, no congestion, no sore throat PULM: No shortness of breath, no cough, no congestion CV: No chest pain, no dyspnea on exertion, no palpitations GI: No nausea, no vomiting, no diarrhea, no pain, no constipation : No frequency, no urgency, no dysuria Musc/skel: No joint pain, +back pain, +right leg weakness Skin: No rash Psyc: No hallucinations, no depression Heme/Lymph: No easy bleeding or bruising tendencies Neuro: No weakness, no headache Past Medical History Past Medical History NEUROLOGIC: Positive Neurological Disorders and Parkinson's Disease CARDIAC: Positive Cardiac Disorders and Hypertension GENITOURINARY: Positive Benign Prostatic Hyperplasia MUSCULOSKELETAL: Positive Musculoskeletal Disorders Social History SMOKING STATUS: Current some day smoker SECOND HAND EXPOSURE: No SUBSTANCE USE: does not use ED Exam Narrative Physical exam: GENERAL APPEARANCE: alert and oriented x 4, well-developed, well-nourished, no acute distress HEENT: Normocephalic, atraumatic; pupils equal, round, reactive to light; EOMI; mucous membranes pink, moist; oropharynx clear NECK: Supple LUNGS: CTABL; no wheezes, no rales, no rhonchi HEART: Regular rate, regular rhythm; normal S1, S2; no murmurs ABDOMEN: non distended; normal BS; soft, no tenderness, no guarding, no rebound; no masses, no organomegaly, no hernia BACK: no CVA tenderness EXTREMITIES: atraumatic; no edema NEUROLOGIC: awake; alert and oriented x4; cranial nerves II-XII grossly intact; no focal sensory or motor deficits PSYCHIATRIC: appropriate mood and affect SKIN: warm, dry, normal color; no rashes Course Course Course Narrative: 1056: I spoke with the 7th grade social studies teacher and made aware of family's request to return patient back to SNF. 1640: beadworker reports she has met with patient and daughter. States family are requesting the patient remain close however there are no accepting facilities in the area. States the daughter will be taking the patient home. Quality Measures none Orders Category Date Time Status Consult Network Engineer Administrator NOW Care 08/16/24 08:17 Active Home Health Referral Routine Cons 08/16/24 16:40 Active Referral Physical Therapy Stat Cons 08/16/24 08:17 Completed Diet Regular Diet 08/16/24 Lunch Active Vital Signs Vital signs: Vital Signs Temperature 98.0 F 08/16/24 07:04 Pulse Rate 75 08/16/24 07:04 Respiratory Rate 18 08/16/24 07:04 Blood Pressure 173/92 H 08/16/24 07:04 Pulse Oximetry (%) 96 08/16/24 07:04 Oxygen Delivery Method Room Air 08/16/24 07:04 Fall MDM Narrative MDM Narrative:: Grace Fong am scribing for and in the presence of Dr. Cartagena. Patient data External records reviewed:: [facility] previous records and EMS form Clinical information provided by:: EMS Social determinants that could affect healthcare access:: none Patient has the following chronic illnesses:: dementia, Parkinson disease, BPH, hypertension, hyperlipidemia, back surgery How is presenting disease/condition affected by chronic disease/condition?: exacerbated by Evaluation data The following diagnostics were reviewed and interpreted by me:: other (specify) (No diagnostics ordered ) Lab and/or radiology exams considered but not ordered:: none Interpretation Summary: n/a Medications / Prescriptions Medications or Prescriptions considered but not ordered:: none Medication administrations:: see above. Consultations Consultation(s) initiated? (list below): No Diagnosis Fall Differential Diagnosis: syncope, concussion with loss of consciousness and other (orthostatic hypotension) Most likely diagnosis given after review of the tests above:: generalized weakness Admission Indicated Admission indicated?: not indicated Admission Request Was there a request for admission?: No Disposition Plan Disposition Plan: Discharge Discharge Attestation Discharge Attestation: The patient and all family members were given an opportunity to ask questions and understood the discharge instructions. Discharge instructions specifically effects, indications for sooner follow up or return to the emergency department, and the expected course of current diagnosis. Patient condition: Stable Discharge Plan Plan Patient Disposition: HOME (Self Care) Prescriptions/Referrals Prescriptions/Med Rec: No Action carbidopa-levodopa 50-200 mg tablet extended release 1 tab PO Q12H amantadine HCl 100 mg capsule 1 cap PO QDAY pramipexole 0.5 mg tablet 1 tab PO Q8H entacapone 200 mg tablet 1 tab PO Q12H finasteride 5 mg tablet 1 tab PO HS trihexyphenidyl 5 mg Tablet 2 mg PO BID Rx Instructions: give with food (meal/snack) meloxicam 15 mg Tablet 15 mg PO QDAY lisinopril 40 mg Tablet 40 mg PO QDAY pimavanserin 34 mg Capsule 34 mg PO QDAY tamsulosin 0.4 mg capsule 0.4 mg PO QDAY Qty: 30 1RF Patient Comments: TAKE 1 CAPSULE BY MOUTH EVERY NIGHT AT BEDTIME FOR BENIGN PROSTATIC HYPERPLASIA Referrals: No Primary/Family,Physician [Primary Care Provider] - In 1 week Problem List Clinical Impression: Generalized weakness Patient/Caregiver Discharge Instructions Education Materials: ED Weakness (Uncertain Cause) Print Language: Armenian Stand Alone Forms: Kady Award Info., Patient Portal Info Letter
--- NOTE | 2024-08-16 07:25 | PC.NURSE ---
BIBA from home due to s/p fall X2 in the last 24hrs. Patient has been livining with family X1 week from [facility]. Since patient has been home patient has had multiple falls. Patient is GCS 14 at baseline. POC updated, and orientated patient to unit. Patient has an abrasion to L knee, and right elbow. Multiple bruises noted throughout body.
--- NOTE | 2024-08-16 09:25 | PC.NURSE ---
Physical therapy at beside at this time.
[2024-08-16 09:49] VITALS: BMI 12.0
[2024-08-16 10:01] VITALS: BP 148/76; PULSE 71; RESP 19; TEMP 36.7; O2SAT 96
--- NOTE | 2024-08-16 10:05 | PC.PT ---
PT eval complete. Please see evaluation for further details.
[2024-08-16 12:00] VITALS: BP 154/74; PULSE 78; RESP 18; TEMP 36.7; O2SAT 97
--- NOTE | 2024-08-16 13:54 | PC.CC ---
Patient is a 79 year-old male who presents to the hospital for Fall. BRENNANWSona made xait-gl-brsy contact with patient. ASW introduced self, role, and reason for visit. Patient appeared alert and oriented to self, location, and situation. Patient was pleasant and engaged in initial assessment. At bedside was patient's daughter, Marry Conroy whom patient provided consent to remain in the room during initial assessment. Patient confirmed information on demographics and reports that he resides with his daughter, Marry. Per patient, in the event he is unable to make his own medical decisions he would like to appoint his daughter to make his medical decisions. At home patient is not able to ambulate independently and requires assistance with all ADLs. Patient requires a wheelchair to ambulate. Patient does not require any Oxygen. Patient receives primary care with Mike Patel in [place]. Patient would like to go to a Intermediate Facility Upon discharge. ASW to send referral to local SNF via [employer].
--- NOTE | 2024-08-16 14:12 | PC.CC ---
Sona LIVINGSTON completed PASSR and sent referral to local SNF. Patient prefers [facility] as first choice and second choice is [facility].
--- NOTE | 2024-08-16 15:37 | PC.CC ---
Sona LIVINGSTON met with patient and daughter, Marry to provide an update that all facilities except for [facility] who is considering patient and [facility] has not responded. Patient and daughter requested SNF referral be sent out to [place] and [place] [facility].
[2024-08-16 16:00] VITALS: BP 139/67; PULSE 64; RESP 16; TEMP 36.6; O2SAT 97
--- NOTE | 2024-08-16 16:59 | PC.CC ---
Sona LIVINGSTON informed patient and daughterMarry that there are no local SNF placements accepting patient. Patient daughter agreed to take patient back home with Home Health. ASW arranging home health and transportation back home. ASW made contact with [facility] [phone]
--- NOTE | 2024-08-16 17:18 | PC.CC ---
Patient will be starting care with [facility] tomorrow August 17, 2024. ASW made contact with daughter Marry to provide this information to her and ASW notified patient.
[2024-08-16 18:28] VITALS: BP 138/70; PULSE 68; RESP 16; TEMP 36.6; O2SAT 98
== END 2024-08-16 18:58 | disposition home or self-care (01) ==
PROVIDERS: Emergency Provider Emergency Medicine
DX: R53.1 Weakness (principal); N40.0 Benign prostatic hyperplasia without lower urinary tract symptoms; I10 Essential (primary) hypertension; E78.5 Hyperlipidemia, unspecified; G20.A1 Parkinson's disease without dyskinesia, without mention of fluctuations; F02.80 Dementia in other diseases classified elsewhere, unspecified severity, without behavioral disturbance, psychotic disturbance, mood disturbance, and anxiety
CPT/HCPCS: 99283

== ENCOUNTER → 2024-08-25 | Outpatient (CLI) | payer MEDICARE, MEDICAID, SELFPAY ==
[2024-08-25 10:48] LABS: Collection Type, Urine Clean Catch
[2024-08-25 12:13] LABS: Bacteria,Urine 1+; Bilirubin,Urine Negative (Negative); Blood,Urine Negative (Negative); Clarity,Urine Turbid (Clear/Hazy); Color,Urine Yellow (Lt Yel-Yel); Glucose, Urine Negative (Negative); Hyaline Casts,Urine < 1 /hpf (0-1); Ketones,Urine Negative (Negative); Leukocyte Esterase,Urine Positive (Negative); Nitrite,Urine Negative (Negative); Protein,Urine Negative (Neg - Trace); RBC,Urine 9 /hpf (0-3); Specific Gravity,Urine 1.019 (1.001-1.035); Squamous Epithelial Cell,Urine < 1 /hpf (0-5); Urobilinogen,Urine Negative mg/dL (0.0-1.0); WBC,Urine 68 /hpf (0-5)
[2024-08-25 12:23] LABS: Culture Indicated,Urine Yes
== END | disposition home or self-care (01) ==
LOC: SLDO 10:37
PROVIDERS: PCP Hospitalist; Referring Provider Hospitalist; Visit Provider Hospitalist
DX: N39.0 Urinary tract infection, site not specified (principal)
CPT/HCPCS: 81001; 87077; 87086; 87186

== ENCOUNTER 2024-11-21 15:15 | Inpatient (IN) | payer MEDICARE, MEDICAID, SELFPAY ==
[2024-11-21] VITALS (7 sets, daily range): BP systolic 146–178; BP diastolic 76–91; PULSE 65–76; RESP 14–98; TEMP 36.1–36.7; O2SAT 96–99; BMI 35.2
--- NOTE | 2024-11-21 15:31 | PD.EDWEAK ---
ED Weakness RME/HPI General Chief complaint: Weakness Stated complaint: Drooling, left side weakness X 2 days Time Seen by Provider: 11/21/24 15:32 Arrival date/time: 11/21/24 15:15 Limitations: no limitations RME / HPI RME / HPI Narrative: 79 year old male with history of Parkinson's disease, hypertension, hyperlipidemia, BPH presents to the ED brought in by daughter for evaluation of left sided weakness and slurred speech today. Daughter states she noticed symptoms yesterday (11/20/2024) at ~ 2PM after physical therapy session while the patient was having difficulty sitting straight on chair during his haircut. Reports with his history of Parkinson's, he on occasion has problems with his balance. However, symptoms today are worse than his usual. Daughter additionally reports the patient walks with assistance but has had difficulty today and has remained mostly sedentary. Denies fevers, chills, sweats, chest pain, cough, shortness of breath, abdominal pain, n/v/d, or urinary symptoms. Daughter mentioned the patient was diagnosed with a UTI 1 week ago and completed a course of antibiotics. Related Data Home Medications ?Medication ?Instructions ?Recorded ?Confirmed amantadine HCl 100 mg capsule 1 cap PO QDAY 10/02/21 03/24/24 carbidopa ER 50 mg-levodopa 200 mg 1 tab PO Q12H 10/02/21 03/24/24 tablet,extended release entacapone 200 mg tablet 1 tab PO Q12H 10/02/21 03/24/24 finasteride 5 mg tablet 1 tab PO HS 10/02/21 03/24/24 pramipexole 0.5 mg tablet 1 tab PO Q8H 10/02/21 03/24/24 trihexyphenidyl 5 mg tablet 2 mg PO BID 01/19/22 03/24/24 lisinopril 40 mg tablet 40 mg PO QDAY 03/24/24 03/24/24 meloxicam 15 mg tablet 15 mg PO QDAY 03/24/24 03/24/24 pimavanserin 34 mg capsule 34 mg PO QDAY 03/24/24 03/24/24 Previous Rx's ?Medication ?Instructions ?Recorded tamsulosin 0.4 mg capsule 0.4 mg PO QDAY #30 caps 03/27/24 Allergies Allergy/AdvReac Type Severity Reaction Status Date / Time No Known Allergies Allergy Verified 11/21/24 15:19 Review of Systems Review of Systems Systems Reviewed: All systems reviewed, normal except as documented Past Medical History Past Medical History NEUROLOGIC: Positive Neurological Disorders, Dementia and Parkinson's Disease CARDIAC: Positive Cardiac Disorders and Hypertension GENITOURINARY: Positive Benign Prostatic Hyperplasia MUSCULOSKELETAL: Positive Musculoskeletal Disorders Surgical History SURGICAL: Positive of Back Surgery Social History SMOKING STATUS: Current every day smoker SECOND HAND EXPOSURE: No SUBSTANCE USE: does not use ED Exam General Limitations: Present no limitations General appearance: Present alert and in no apparent distress Head Head exam: Present atraumatic, normocephalic and normal inspection Eye Eye exam: Present normal appearance, PERRL and EOMI ENT ENT exam: Present normal exam, normal oropharynx and mucous membranes moist Neck Neck exam: Present normal inspection, full ROM and trachea midline Chest Chest inspection: Present normal inspection and symmetric chest wall rise Respiratory Respiratory exam: Present normal lung sounds bilaterally Cardiovascular Cardiovascular exam: Present regular rate, normal rhythm and normal heart sounds Abdominal Exam Abdominal exam: Present soft and normal bowel sounds Extremities Exam Extremities exam: Present normal inspection Back Exam Back exam: Present normal inspection and full ROM Neurological Exam Neurological exam: Present alert, oriented X3, CN II-XII intact and other (Bilateral moderate to severe cogwheeling BL upper extremities, nonintentional tremor, mask-like facies, 5/5 strength BL upper extremities, did not test strength in the lower extremity ) Psychiatric Psychiatric exam: Present normal affect and normal mood Skin Skin exam: Present warm, dry, intact and normal color Course Quality Measures Suspected type of Stroke: Non Acute Last known well (date): 11/20/24 Last known well (time): 14:00 Tenecteplase given: Reason(s) TPA not given: Outside the time window not given stroke Orders Category Date Time Status Bedside Blood Glucose NOW Care 11/21/24 15:35 Active COVID-19 Screening Questionnaire NOW Care 11/21/24 17:39 Active Project Management Specialist NOW Care 11/21/24 15:35 Active Continuous Pulse Oximetry NOW Care 11/21/24 15:35 Completed Decision to Admit X1 Care 11/21/24 17:39 Completed EKG (ED ONLY) *Do not use* NOW Care 11/21/24 15:38 Completed Insert IV NOW Care 11/21/24 15:35 Active NIH Stroke Scale now Care 11/21/24 15:35 Active NPO NOW Care 11/21/24 15:35 Active Neuro Check Q15MIN Care 11/21/24 15:35 Active Nurse Swallow Screen x1 Care 11/21/24 15:35 Active Consult to Neurology / Tele-Neurology Routine Cons 11/21/24 15:[address] angio stroke protocol Stat Exams 11/21/24 15:[address] stroke protocol Stat Exams 11/21/24 15:35 Completed EKG (ED Only) Stat Exams 11/21/24 15:33 Draft Alcohol, Blood Medical Stat Lab 11/21/24 14:05 Completed B-Type Natriuretic Peptide Stat Lab 11/21/24 14:05 Completed CBC Stat Lab 11/21/24 14:05 Completed Comprehensive Metabolic Panel Stat Lab 11/21/24 14:05 Completed Drug Screen,Urine Stat Lab 11/21/24 17:43 Received Magnesium Stat Lab 11/21/24 14:05 Completed Partial Thromboplastin Time Stat Lab 11/21/24 14:05 Completed Prothrombin Time with INR Stat Lab 11/21/24 14:05 Completed Troponin I Stat Lab 11/21/24 14:05 Completed Urinalysis Stat Lab 11/21/24 17:39 Received Urine Culture Stat Lab 11/21/24 17:43 Received Sodium Chloride 0.9% 1000 ml [Ns] 1,000 ml Med 11/21/24 15:45 Active IV 60 mls/hr cefTRIAXone [Rocephin] 2 gm Med 11/21/24 17:34 Discontinued SODIUM CHLORIDE 0.9% (Popper) [Ns 0.9% (P)] 50 ml IV X1 Oxygen Delivery NOW RT 11/21/24 15:35 Active Vital Signs Vital signs: Vital Signs Temperature 97.8 F 11/21/24 15:23 Pulse Rate 71 11/21/24 15:23 Respiratory Rate 20 11/21/24 15:23 Blood Pressure 146/76 H 11/21/24 15:23 Pulse Oximetry (%) 96 11/21/24 15:23 Oxygen Delivery Method Room Air 11/21/24 15:23 Pulse ox is 96% on room air which is adequate. Weakness MDM Narrative MDM Narrative:: Maria G Fong am scribing for and in the presence of Dr. Gloria. Patient data External records reviewed:: [facility] previous records (I reviewed ED visit on 08/16/2024 ) Clinical information provided by:: patient Social determinants that could affect healthcare access:: none Patient has the following chronic illnesses:: Parkinson's disease How is presenting disease/condition affected by chronic disease/condition?: exacerbated by Evaluation data The following diagnostics were reviewed and interpreted by me:: lab results, radiology exam(s) and EKG tracing(s) (11/22/2023 @ 16:02h. NSR, rate 76, no STEMI. ) Lab and/or radiology exams considered but not ordered:: None Interpretation Summary: Ordering Physician: Dennis Gloria MD Date of Service: 11/21/24 Procedure(s): CT stroke protocol Accession Number(s): [id number] cc: Dennis Gloria MD; Brandyn Bains MD~ Examination: CT brain head without contrast. 2-D sagittal coronal reconstructions Date and time of exam:November 21, 2024 1543 hours Comparison March 23, 2024 INDICATIONS: Stroke alert, onset left-sided body weakness beginning 2 days ago CTDI: vol (mGy):54.8 DLP: (mGycm):1096 Technique: Multiple CT axial sections of the brain have been obtained, 5 mm slice thickness. Contrast has not been administered. 2-D sagittal, coronal reconstructions have been obtained Low dose protocols were performed. One or more of the following dose reduction techniques were used; automated exposure control, adjustment of the mA and/or KV according to patient size, use of iterative reconstruction technique. Findings: No significant ventricular enlargement. Intra-axial or extra-axial hemorrhage density is not seen. No mass effect or midline shift Basal cisterns are not remarkable. Fourth ventricle is midline. Cranial vault intact. Impression: Negative for acute hemorrhage, mass effect or midline shift Dictated By: Brandyn Bains MD Signed By: <Electronically signed by Brandyn Bains MD in OV> 11/21/24 1550 Ordering Physician: Dennis Gloria MD Date of Service: 11/21/24 Procedure(s): CT angio stroke protocol Accession Number(s): [id number] cc: Dennis Gloria MD; Brandyn Bains MD~ Examination: CTA carotids with intravenous contrast CTA brain, head with intravenous contrast. 2-D sagittal, coronal reconstructions. 3-D reconstructions. Exam date and time: November 21, 2024 1552 hours INDICATIONS: Stroke alert, onset left-sided body weakness beginning 2 days ago CTDI: vol (mGy) 29.8 DLP: (mGycm) 492 Technique: Multiple CTA axial brain, head carotid images post intravenous contrast injection 75 cc, Isovue-370. 2-D sagittal, coronal reconstructions. 3-D reconstructions, 3-D post processing including vascular maximum intensity projection images. Low dose protocols were performed. One or more of the following dose reduction techniques were used; automated exposure control, adjustment of the mA and/or KV according to patient size, use of iterative reconstruction technique. Findings: Bilateral thyromegaly with multiple thyroid nodules, the largest in the left lobe of the thyroid 27 mm The left thyroid lobe is extending substernal No significant common carotid carotid bifurcation or internal carotid artery stenoses Mildly dominant left vertebral artery in the neck with no critical vertebral artery stenoses Intracranial vertebral arteries basilar artery and posterior cerebral branches fill with no large vessel occlusions Moderate calcification juxtasellar right internal carotid artery M1 segments middle cerebral arteries middle cerebral artery trifurcation vessels anterior cerebral arteries fill with no large vessel occlusions IMPRESSION: Significant thyromegaly with multiple thyroid nodules No significant neck arterial stenoses No cerebral large vessel arterial occlusions or thrombus Dictated By: Brandyn Bains MD Signed By: <Electronically signed by Brandyn Bains MD in OV> 11/21/24 1623 Medications / Prescriptions Medications or Prescriptions considered but not ordered:: None Medication administrations:: Medication Administration History Sodium Chloride (Ns) 1,000 mls @ 60 mls/hr IV .[id number] Stop: 12/21/24 15:44 Discontinued Medications Ceftriaxone Sodium 2 gm/ (Sodium Chloride) 50 mls @ 100 mls/hr IV X1 ONE Stop: 11/21/24 18:03 See above Consultations Consultation(s) initiated? (list below): Yes Consultation #1 (Physician, Specialty, Details): I spoke with teleneurologist Dr. Cruz. States patient is not a TNK candidate. Time: 16:08 Diagnosis Weakness Differential Diagnosis: acute myocardial infarction, anemia, sepsis, dehydration and other (CVA, TIA ) Most likely diagnosis given after review of the tests above:: Left-sided weakness Exacerbation of Parkinson's UTI Admission Indicated Admission indicated?: indicated Admission Request Was there a request for admission?: Yes Admission Attestation Admission request attestation: Discussed case with [] from Hospitalist service regarding admission. Discussed patients ED course, exam findings, labs, and radiology results. The Hospitalist [agrees,declines] to accept the patient for admission. Disposition Plan Disposition Plan: Admit Discharge Plan Plan Patient Disposition: Admit Acute Care w/in Hospital Prescriptions/Referrals Prescriptions/Med Rec: No Action carbidopa-levodopa 50-200 mg tablet extended release 1 tab PO Q12H amantadine HCl 100 mg capsule 1 cap PO QDAY pramipexole 0.5 mg tablet 1 tab PO Q8H entacapone 200 mg tablet 1 tab PO Q12H finasteride 5 mg tablet 1 tab PO HS trihexyphenidyl 5 mg Tablet 2 mg PO BID Rx Instructions: give with food (meal/snack) meloxicam 15 mg Tablet 15 mg PO QDAY lisinopril 40 mg Tablet 40 mg PO QDAY pimavanserin 34 mg Capsule 34 mg PO QDAY tamsulosin 0.4 mg capsule 0.4 mg PO QDAY Qty: 30 1RF Patient Comments: TAKE 1 CAPSULE BY MOUTH EVERY NIGHT AT BEDTIME FOR BENIGN PROSTATIC HYPERPLASIA Referrals: No Primary/Family,Physician [Primary Care Provider] - In 1 week Problem List Clinical Impression: Left-sided weakness, UTI (urinary tract infection), Parkinson's disease Patient/Caregiver Discharge Instructions Print Language: Korean Stand Alone Forms: [facility] Award Info., Patient Portal Info Letter
--- NOTE | 2024-11-21 15:33 | EKG_ITS ---
[facility] Test Date: 2024-11-21 Pat Name: JEFF LUDWIG Department: Room: - Gender: Male Advanced Developer: : 1945 Requested By: Dennis Olivarez Order Number: [id number] Reading MD: Dennis Olivarez Measurements Intervals [place] Rate: 76 P: 76 ND: 143 QRS: -14 QRSD: 129 T: 30 QT: 390 QTc: 439 Interpretive Statements SINUS RHYTHM MODERATE INTRAVENTRICULAR CONDUCTION DELAY [110+ ms QRS DURATION] VOLTAGE CRITERIA FOR LVH [MEETS CRITERIA IN ONE OF: R(aVL), S(V1), R(V5), R(V5/V6)+S(V1)] Compared to ECG 08/04/2023 05:17:31 No significant changes /store/S0/[id number]/[id number].pdf
--- NOTE | 2024-11-21 15:35 | XR_ITS ---
Examination: CT brain head without contrast. 2-D sagittal coronal reconstructions Date and time of exam:November 21, 2024 1543 hours Comparison March 23, 2024 INDICATIONS: Stroke alert, onset left-sided body weakness beginning 2 days ago CTDI: vol (mGy):54.8 DLP: (mGycm):1096 Technique: Multiple CT axial sections of the brain have been obtained, 5 mm slice thickness. Contrast has not been administered. 2-D sagittal, coronal reconstructions have been obtained Low dose protocols were performed. One or more of the following dose reduction techniques were used; automated exposure control, adjustment of the mA and/or KV according to patient size, use of iterative reconstruction technique. Findings: No significant ventricular enlargement. Intra-axial or extra-axial hemorrhage density is not seen. No mass effect or midline shift Basal cisterns are not remarkable. Fourth ventricle is midline. Cranial vault intact. Impression: Negative for acute hemorrhage, mass effect or midline shift
--- NOTE | 2024-11-21 15:35 | XR_ITS ---
Examination: CTA carotids with intravenous contrast CTA brain, head with intravenous contrast. 2-D sagittal, coronal reconstructions. 3-D reconstructions. Exam date and time: November 21, 2024 1552 hours INDICATIONS: Stroke alert, onset left-sided body weakness beginning 2 days ago CTDI: vol (mGy) 29.8 DLP: (mGycm) 492 Technique: Multiple CTA axial brain, head carotid images post intravenous contrast injection 75 cc, Isovue-370. 2-D sagittal, coronal reconstructions. 3-D reconstructions, 3-D post processing including vascular maximum intensity projection images. Low dose protocols were performed. One or more of the following dose reduction techniques were used; automated exposure control, adjustment of the mA and/or KV according to patient size, use of iterative reconstruction technique. Findings: Bilateral thyromegaly with multiple thyroid nodules, the largest in the left lobe of the thyroid 27 mm The left thyroid lobe is extending substernal No significant common carotid carotid bifurcation or internal carotid artery stenoses Mildly dominant left vertebral artery in the neck with no critical vertebral artery stenoses Intracranial vertebral arteries basilar artery and posterior cerebral branches fill with no large vessel occlusions Moderate calcification juxtasellar right internal carotid artery M1 segments middle cerebral arteries middle cerebral artery trifurcation vessels anterior cerebral arteries fill with no large vessel occlusions IMPRESSION: Significant thyromegaly with multiple thyroid nodules No significant neck arterial stenoses No cerebral large vessel arterial occlusions or thrombus
--- NOTE | 2024-11-21 16:11 | PD.TNEURO ---
Tele Neuro Consultation Consultation Date 11/21/24 [facility] Tele[facility]urology Consult [facility] Patient Name: RACHEL LUDWIG Date of : 1945 Date of Service: 11/21/2024 15:36:46 Diagnosis: ? R26.81 - Unsteady gait Impression: ? 79-year-old male history of Parkinson's, hypertension, hyperlipidemia arrives seen as a stroke alert for left-sided weakness. Patient being seen for left-sided weakness for the last 2 days. Neuroexam showed patient is oriented to month, age able to follow simple commands, moving all 4 extremities without significant weakness, subtle left lower facial droop. CT head negative for acute process. CT angiogram completed and pending report. At this time, will rule out metabolic, infectious process to cause his symptoms. He states that his left side is his weaker side at baseline. If workup unrevealing and he remains with left-sided weakness worse than his baseline, would obtain MRI brain noncontrast to rule out stroke. Patient not a thrombolytic candidate with last known well 2 days ago Our recommendations are outlined below. Recommendations: ? Neuro Checks (Q4) ? IV Fluids, Normal Saline ? - metabolic, infectious work up ? - If unrevealing work up, obtain MRI brain non contrast Sign Out: ? Discussed with Emergency Department Provider Advanced Imaging: CTA Head and Neck Completed. LVO:No Patient is not a candidate for BARRY Metrics: Last Known Well: Unknown Dispatch Time: 11/21/2024 15:36:46 Arrival Time: 11/21/2024 15:15:00 Initial Response Time: 11/21/2024 15:38:41 Symptoms: L side weakness, confusion . Initial patient interaction: 11/21/2024 15:40:50 NIHSS Assessment Completed: 11/21/2024 15:40:51 Patient is not a candidate for Thrombolytic. Thrombolytic Medical Decision: 11/21/2024 15:44:11 Patient was not deemed candidate for Thrombolytic because of following reasons: LKW outside 4.[address] Head: I personally reviewed all the CT images that were available to me and it showed: no acute process Primary Provider Notified of Diagnostic Impression and Management Plan on: 11/21/2024 16:06:24 History of Present Illness: Patient is a 79 year old Male. Patient was brought by EMS for symptoms of L side weakness, confusion . 79-year-old male history of Parkinson's, hypertension, hyperlipidemia arrives seen as a stroke alert for left-sided weakness. Patient not a great historian, per review of EMR, she has been having left-sided weakness for last 2 days, drooling on the left side. He states that his daughter noticed the symptoms and told him to come to the hospital. He himself feels okay and denies any major problems. He does have history of UTIs but denies any recent fevers chills or difficulty urinating. He is not on any blood thinners but takes medication for Parkinson's. Blood pressure on arrival 146/76 pulse 71 Past Medical History: ? Hypertension ? Hyperlipidemia Other PMH: parkinsons Medications: No Anticoagulant use No Antiplatelet use Reviewed EMR for current medications Allergies: Reviewed Social History: Drug Use: No Family History: There is no family history of premature cerebrovascular disease pertinent to this consultation ROS : 14 Points Review of Systems was performed and was negative except mentioned in HPI. Past Surgical History: There Is No Surgical History Contributory To Today?s Visit Examination: BP(146/76), Pulse(71), 1A: Level of Consciousness - Alert; keenly responsive + 0 1B: Ask Month and Age - Could Not Answer Either Question Correctly + 2 1C: Blink Eyes & Squeeze Hands - Performs Both Tasks + 0 2: Test Horizontal Extraocular Movements - Normal + 0 3: Test Visual Sandra - No Visual Loss + 0 4: Test Facial Palsy (Use Grimace if Obtunded) - Normal symmetry + 0 5A: Test Left Arm Motor Drift - No Drift for 10 Seconds + 0 5B: Test Right Arm Motor Drift - No Drift for 10 Seconds + 0 6A: Test Left Leg Motor Drift - No Drift for 5 Seconds + 0 6B: Test Right Leg Motor Drift - No Drift for 5 Seconds + 0 7: Test Limb Ataxia (FNF/Heel-Grant) - No Ataxia + 0 8: Test Sensation - Normal; No sensory loss + 0 9: Test Language/Aphasia - Normal; No aphasia + 0 10: Test Dysarthria - Mild-Moderate Dysarthria: Slurring but can be understood + 1 11: Test Extinction/Inattention - No abnormality + 0 NIHSS Score: 3 Pre-Morbid Modified Indu Scale: Unable to assess Spoke with : Dr Gloria This consult was conducted in real time using interactive audio and video technology. Patient was informed of the technology being used for this visit and agreed to proceed. Patient located in hospital and provider located at home/office setting. Patient is being evaluated for possible acute neurologic impairment and high probability of imminent or life-threatening deterioration. I spent total of 35 minutes providing care to this patient, including time for face to face visit via telemedicine, review of medical records, imaging studies and discussion of findings with providers, the patient and/or family. Dr Guero Cruz [facility] For Inpatient follow-up with [facility] physician please call [facility] at . As we are not an outpatient service for any post hospital discharge needs please contact the hospital for assistance. If you have any questions for the [facility] physicians or need to reconsult for clinical or diagnostic changes please contact us via [facility] at . Signature : Guero Cruz Most Recent Vital Signs Last Vital Signs Temp 97.8 F 11/21/24 15:23 Pulse 76 11/21/24 15:35 Resp 20 11/21/24 15:23 BP 146/76 H 11/21/24 15:23 Pulse Ox 96 11/21/24 15:23 O2 Del Method Room Air 11/21/24 15:23
[2024-11-21 16:18] LABS: Basophils # (Auto) 0.1 Thou/mm3 (0.0-0.2); Basophils % (Auto) 1 % (0-2.5); Eosinophils # (Auto) 0.1 Thou/mm3 (0.0-0.5); Eosinophils % (Auto) 1 % (0-10); Hematocrit 41.7 % (41.0-53.0); Hemoglobin 13.7 g/dL (13.5-16.0); Immature Granulocytes Auto 0.04 Thou/mm3 (0.00-0.00); Lymphocytes # (Auto) 1.4 Thou/mm3 (1.0-4.8); Lymphocytes % (Auto) 13 % (10-50); Mean Corpuscular HGB Conc 32.9 g/dl (31.0-37.0); Mean Corpuscular Hemoglobin 30.0 pg (25.0-35.0); Mean Corpuscular Volume 91 fL (80-100); Monocytes # (Auto) 0.7 Thou/mm3 (0.0-0.8); Monocytes % (Auto) 7 % (0-12); Neutrophils # (Auto) 8.7 Thou/mm3 (1.8-7.7); Neutrophils % (Auto) 78 % (37-80); Nucleated Red Blood Cell # 0.00 Thou/mm3 (0.00-0.00); Nucleated Red Blood Cell % 0 /100 WBC (0); Platelet Count 239 Thou/mm3 (140-440); RDW Standard Deviation 45.4 fL (35.1-43.9); Red Blood Count 4.56 Miln/mm3 (4.50-5.90); White Blood Count 11.1 Thou/mm3 (3.8-10.6)
[2024-11-21 16:42] LABS: INR 1.1 (0.9-1.3); Partial Thromboplastin Time 23.4 Seconds (22.0-36.0); Prothrombin Time 11.5 Seconds (9.0-12.2)
[2024-11-21 17:00] LABS: B-Type Natriuretic Peptide 40 pg/mL (0-100)
[2024-11-21 17:09] LABS: Alanine Aminotransferase < 7 U/L (10-49); Albumin, Serum 4.0 gm/dL (3.4-4.8); Albumin/Globulin Ratio 2.1 (1.2-2.2); Alcohol, Blood Medical < 3.0 mg/dL (0-10.0); Alkaline Phosphatase 177 U/L (46-116); Anion Gap 8 (7-16); Aspartate Amino Transferase 20 U/L (0-34); BUN/Creatinine Ratio 15 Ratio (12-20); Bilirubin,Total 0.4 mg/dL (0.3-1.2); Blood Urea Nitrogen 18 mg/dL (9-23); Calcium 9.3 mg/dL (8.3-10.6); Calcium (Corrected) 9.3 mg/dL (8.5-10.1); Carbon Dioxide 28.1 mMol/L (20.0-31.0); Chloride 108 mMol/L (98-107); Creatinine (Component) 1.2 mg/dL (0.6-1.3); Estimated Creatinine Clearance 64.4 mL/min (>60); Globulin 1.9 gm/dL (2.3-3.5); Glucose 108 mg/dL (74-106); Magnesium 1.8 mg/dL (1.6-2.6); Osmolality,Calculated 289 (275-295); Potassium 3.7 mMol/L (3.4-5.1); Sodium 144 mMol/L (136-145); Total Protein 5.9 gm/dL (5.7-8.2); Troponin I < 0.020 ng/mL (0.0-0.045); eGFR > 60 See Note
[2024-11-21 18:03] LABS: Collection Type, Urine Catheter
--- NOTE | 2024-11-21 18:26 | PD.RESHP ---
Documentation for date of: 11/21/24 [facility] History of Present Illness Chief complaint: Left-sided weakness and Drooling from left side History of present illness: Mr. Julian is 79-year-old male with past medical history of Parkinson's disease, BPH, hypertension and hyperlipidemia who presented to [facility] emergency department on November 21, 2024 with a chief complaint of left-sided weakness and drooling from left side. Patient by himself is a poor historian alert and oriented x 3 though, daughter at bedside contributed in providing history. Per daughter patient had no symptoms of left-sided facial weakness with significant amount of drooling, reports that his left side is weaker than baseline since the last 2 days. Per daughter patient was getting his physical therapy session yesterday and had difficulty sitting straight in chair. She insists that the patient is not at his baseline. Daughter reported that patient was recently diagnosed with a urinary tract infection and received Macrobid by primary care physician. Patient does have history of Parkinson disease on multiple medications follows Dr. Finch outpatient, otherwise patient does report following up with creative writing teacher Dr. Steve for peripheral arterial disease and reports following up with Dr. Josue urologist outpatient, reports that he underwent robotic surgical intervention for prostate in the past. Patient currently denies any abdominal pain, nausea, vomiting, headache, chest pain, reports that he has regular bowel movements and denies any difficulties while urinating. ED Course: ED Vitals: On presentation in ED blood pressure 146/76, heart rate 71, respiratory rate 20, temp 97.8, O2 sat 96 on room air ED Labs: ED labs on presentation WBC 11.1, chloride 108, glucose 108, alk phos 177, globulin 1.9. Urine analysis significant for dark yellow urine, turbid, pH 8.5, specific gravity 1.036, protein 3+, positive leukocyte esterase, RBC 18, WBC 397, bacteria 4+. Urine tox screen unremarkable urine culture was sent. ED Imaging: CT scan of head negative for acute hemorrhage mass effect or midline shift. CTA head and neck shows significant thyromegaly with multiple thyroid nodules, no significant neck arterial stenosis, no cerebral large vessel arterial occlusion or thrombus ED Treatment: Patient was started on maintenance fluid NS 60 cc/h and received ceftriaxone x 1 in the emergency department.Seen by teleneurology in the emergency department NIHSS score 3, premorbid modified Indu scale unable to assess. Patient noted to have some slurring of speech and was unable to answer month and age. Teleneurology recommended metabolic and infectious workup, rec's holding MRI for now. Review of Systems Review of Systems Narrative Review of Systems: ROS: -CONSTITUTIONAL: Denies weight loss, fever and chills. -HEENT: Denies changes in vision and hearing. -RESPIRATORY: Denies SOB and cough. -CV: Denies palpitations and Chest Pain. -GI: Denies abdominal pain, nausea, vomiting,constipation and diarrhea. -: Denies dysuria and urinary frequency. -MSK: Denies myalgia and joint pain. -SKIN: Denies rash and pruritus. -NEUROLOGICAL: Denies headache and syncope. Positive for left-sided weakness and drooling, difficulty walking. -PSYCHIATRIC: Denies recent changes in mood. Denies anxiety and depression. Past Medical History Past Medical History Comments PMH COMMENT: PMH: Positive for Parkinson's disease, BPH, hypertension and hyperlipidemia PSHx: Positive for prostate surgery and back surgery Allergies: No known drug and food allergies Social history: -Smoking: Current active smoker -Alcohol Use: Denies any significant alcohol use -Illicit Drug Use: Denies Family History: Reports family history of stroke and heart disease. No family history of Parkinson's disease. Exam Vital Signs Temp Pulse Resp BP Pulse Ox O2 Del Method 98.0 F 75 14 157/83 H 98 Room Air 11/21/24 17:59 11/21/24 18:02 11/21/24 18:02 11/21/24 17:59 11/21/24 17:59 11/21/24 17:59 Narrative Exam Physical Exam General: Awake and in no acute distress. Conversational and non-toxic appearing. HEENT: Normocephalic, atraumatic, mucous membranes moist. Heart: Regular rate and rhythm, no murmurs. Lungs: Clear to auscultation with no wheezing or crackles. Abdomen: Soft, nondistended, nontender, positive bowel sounds. ?No guarding or rebound tenderness. Neurologic: Alert and oriented x3, no gross neurological deficit, and patient able to move all 4 extremities grossly. Some weakness noted left upper extremity and subtle facial droop Extremities: No edema. Skin: No rash or ecchymoses. Results: Labs 11/22/24 07:30 11/22/24 07:30 Labs: Short CBC 11/21/24 Range/Units 14:05 WBC 11.1 H (3.8-10.6) Thou/mm3 Hgb 13.7 (13.5-16.0) g/dL Hct 41.7 (41.0-53.0) % Plt Count 239 (140-440) Thou/mm3 BMP 11/21/24 14:05 Sodium 144 Potassium 3.7 Chloride 108 H Carbon Dioxide 28.1 BUN 18 Creatinine 1.2 Glucose 108 H Calcium 9.3 Cardiac Enzymes 11/21/24 Range/Units 14:05 Troponin I < 0.020 (0.0-0.045) ng/mL Liver Function 11/21/24 Range/Units 14:05 Total Bilirubin 0.4 (0.3-1.2) mg/dL AST 20 (0-34) U/L ALT < 7 L (10-49) U/L Alkaline Phosphatase 177 H (46-116) U/L Albumin 4.0 (3.4-4.8) gm/dL Quality Measures Quality Measures stroke Suspected type of Stroke: Non Acute Last known well (date): 11/20/24 Last known well (time): 14:00 Tenecteplase given: Reason(s) Tenecteplase not given: Outside the time window not given Rehab services: PT evaluation ordered and Speech Language Pathology eval ordered VTE Prophylaxis: pharmaceutical Antithrombotic by day 2:: not indicated (describe) (per neuro recs) Statin ordered: >75 y/o moderate or high intensity dose Anticoagulation ordered for A-fib or flutter (current or hx): not indicated Advance care planning discussed with:: patient and child Medications Home Medications and Allergies Home Medications ?Medication ?Instructions ?Recorded ?Confirmed ?Type amantadine HCl 100 mg capsule 1 cap PO BID 10/02/21 11/22/24 History carbidopa ER 50 mg-levodopa 200 mg 1 tab PO TID 10/02/21 11/22/24 History tablet,extended release entacapone 200 mg tablet 1 tab PO Q12H 10/02/21 11/22/24 History finasteride 5 mg tablet 1 tab PO QDAY 10/02/21 11/22/24 History pramipexole 0.5 mg tablet 1 tab PO Q8H 10/02/21 11/22/24 History trihexyphenidyl 5 mg tablet 2 mg PO BID 01/19/22 11/22/24 History lisinopril 40 mg tablet 40 mg PO QDAY 03/24/24 11/22/24 History meloxicam 15 mg tablet 15 mg PO QDAY 03/24/24 11/22/24 History pimavanserin 34 mg capsule 34 mg PO QDAY 03/24/24 11/22/24 History furosemide 20 mg tablet 20 mg PO QDAY PRN edema 11/22/24 11/22/24 History hydrochlorothiazide 12.5 mg tablet 12.5 mg PO QDAY 11/22/24 11/22/24 History nitrofurantoin macrocrystal 100 mg 100 mg PO BID 11/22/24 11/22/24 History capsule tamsulosin 0.4 mg capsule 0.4 mg PO QPM 11/22/24 11/22/24 History Allergies Allergy/AdvReac Type Severity Reaction Status Date / Time No Known Allergies Allergy Verified 11/21/24 15:19 Visit Medications Acetaminophen (Acetaminophen 325 Mg Tablet) 650 mg PO Q6H PRN PRN Reason: Pain (1-3) & Fever >100.4 Stop: 12/21/24 18:15 Heparin Sodium (Porcine) (Heparin Sod Inj 5000 Unit/Ml Vial) 5,000 unit SC Q12HR COUNTS INCLUDE 234 BEDS AT THE [facility] Stop: 12/05/24 18:29 Sodium Chloride (Ns) 1,000 mls @ 60 mls/hr IV .[id number] COUNTS INCLUDE 234 BEDS AT THE [facility] Stop: 11/22/24 08:24 Ceftriaxone Sodium/Dextrose (Rocephin/D5w 1gm Iv Premix) 1 gm in 50 mls @ 100 mls/hr IV QDAY@1400 BRY Stop: 11/28/24 18:21 Ondansetron HCl (Ondansetron Inj 2 Mg/Ml Inj 2 Ml) 4 mg IVP Q6H PRN; Protocol PRN Reason: NAUSEA OR VOMITING Stop: 12/21/24 18:15 Assessment & Plan Plan Assessment and plan: Summary: Mr. Julian is 79-year-old male with past medical history of Parkinson's disease, BPH, hypertension and hyperlipidemia who presented to [facility] emergency department on November 21, 2024 with a chief complaint of left-sided weakness and drooling from left side. Patient admitted to hospital for acute encephalopathy workup, rule out metabolic versus infectious etiology. Currently low suspicion of CVA, neurology consulted. #Acute encephalopathy secondary to #Urinary tract infection #CVA workup, low suspicion of CVA Symptoms of drooling left-sided weakness for the last 2 days per daughter patient not at baseline, was assessed by teleneurology NIHSS 3, teleneurology recommends metabolic and infectious workup. Patient follows Dr. Finch outpatient for Parkinson's disease management. Patient on multiple Parkinson disease medication CT scan of head negative for acute hemorrhage mass effect or midline shift. CTA head and neck shows significant thyromegaly with multiple thyroid nodules, no significant neck arterial stenosis, no cerebral large vessel arterial occlusion or thrombus Patient was recently seen by PCP for urinary tract infection, completed treatment with Macrobid Labs: WBC 11.1, Urine analysis significant for dark yellow urine, turbid, pH 8.5, specific gravity 1.036, protein 3+, positive leukocyte esterase, RBC 18, WBC 397, bacteria 4+. U-Tox unremarkable Plan: - Started ceftriaxone IV (11/21- - Pending urine culture - IV NS maintenance fluid 1 L - Follow vitamin B12 and folate level - Follow TSH and free T4 in a.m. - Neurology consulted, appreciate recommendations - Neurocheck every 4 hours - NPO, pending nurse swallow - Referral to speech therapy and physical therapy - Aspiration precautions, elevate head of bed 30 degrees - Follow lipid panel and A1c in a.m. - Pending neurology recommendations, will consider MRI/echo per neuro recs #Multiple thyroid nodules CTA head and neck shows significant thyromegaly with multiple thyroid nodules - Will follow TSH and free T4 in a.m. #Parkinson's disease with dementia Patient has diagnosed history of Parkinson's disease follows Dr. Finch neurology start patient -Resumed home dose carbidopa levodopa, amantadine, entacapone, pramipexole, trihexyphenidyl and pimavanserin -Neurology consulted, appreciate recommendations #Hypertension #Hyperlipidemia Reportedly patient on lisinopril and hydrochlorothiazide for blood pressure management - Will hold blood pressure medication for now #BPH, by history Patient on Flomax at home Follows Dr. Josue outpatient DVT prophylaxis: Heparin SC GI prophylaxis: Not indicated Diet: N.p.o., pending bedside swallow Lines: Peripheral IV Code status: Full code Disposition: Telemetry pending neurology recommendations Case discussed with Attending Physician DO Danielle Reddy MD Internal Medicine PGY-2 Disclaimer: This note was dictated by speech recognition. Minor errors in smoke control supervisor may be present due to voice recognition software. Attending Provider Attestation/Addendum Mayra Fong DO, attest that I was physically present for the carroll portions of the service and evaluated the patient with the resident and I reviewed and discussed the case with the resident and agree with the resident's findings and plans of care as documented above Patient is a 79-year-old male with r past medical history of Parkinson disease, BPH, hyperlipidemia and hypertension who presented to the ED with complaint of worsening generalized weakness that began in the past few days. Her family member at bedside, patient at baseline is alert and oriented x 3 with occasional confusion due to dementia. However, he has been noted to be more weak leading to worse his left side since yesterday. He has not been as interactive as he usually is. This morning, patient was noted to be drooling and less talkative. Patient was subsequently brought to the ED due to worsening generalized weakness. Patient was recently diagnosed with a UTI and completed antibiotics. He had previously had a robotic surgery for his prostate and has since had not had any issues with urination. He denies any dysuria or increased frequency. Patient denies any pain, chest pain, nausea, shortness of breath, fevers or chills otherwise. Report was called to ED. CT head was negative for any acute intracranial findings. CT head and neck also showed thyromegaly with multiple thyroid nodules, but no LVO. Per [facility] neuro, patient's symptoms/encephalopathy likely secondary to metabolic/infectious process. Will follow-up with blood and urine cultures at this time. Will start patient empirically on Rocephin for suspected UTI. Will continue with IV fluid hydration as well. Will hold off on stroke workup at this time. Will follow-up with neurology recommendations.
[2024-11-21 18:30] LABS: Amphetamine/Methamp Scrn,U Negative (Negative); Barbiturate Screen,Urine Negative (Negative); Benzodiazepines Screen,Urine Negative (Negative); Benzoylecgonine Screen, Ur Negative (Negative); Fentanyl Screen,Urine Negative (Negative); Opiate Screen,Urine Negative (Negative); THC Screen,Urine Negative (Negative)
[2024-11-21 18:47] LABS: Bacteria,Urine 4+; Bilirubin,Urine Negative (Negative); Blood,Urine Negative (Negative); Clarity,Urine Turbid (Clear/Hazy); Color,Urine Drk-Yellow (Lt Yel-Yel); Glucose, Urine Negative (Negative); Ketones,Urine Negative (Negative); Leukocyte Esterase,Urine Positive (Negative); Nitrite,Urine Positive (Negative); PH,Urine 8.5 (5.0-7.0); Protein,Urine 3+ (Neg - Trace); RBC,Urine 18 /hpf (0-3); Specific Gravity,Urine 1.036 (1.001-1.035); Squamous Epithelial Cell,Urine < 1 /hpf (0-5); Urobilinogen,Urine Negative mg/dL (0.0-1.0); WBC,Urine 397 /hpf (0-5)
[2024-11-21] MEDS: SODIUM CHLORIDE 0.9% 1000 ML 1,000 ML 60 ML IV (18:53)
[2024-11-21] MEDS: cefTRIAXone/D5w 1gm IV premix 1 GM/50 ML BAG IV (18:54)
[2024-11-21] MEDS: HEPARIN SOD INJ 5000 UNIT/ML VIAL SC (18:55)
[2024-11-21] MEDS: PRAMIPEXOLE 0.25 MG TABLET 0.5 MG PO (22:13)
[2024-11-21] MEDS: ATORVASTATIN CALCIUM 20 MG TABLET 40 MG PO (22:13)
[2024-11-21] MEDS: CARBIDOPA/LEVODOPA CR 50/200 TABCR 1 TAB PO (22:13)
[2024-11-22] VITALS (10 sets, daily range): BP systolic 141–175; BP diastolic 75–91; PULSE 63–94; RESP 13–97; TEMP 36.1–36.3; O2SAT 94–97; BMI 11.0
[2024-11-22 07:47] LABS: Basophils # (Auto) 0.1 Thou/mm3 (0.0-0.2); Basophils % (Auto) 1 % (0-2.5); Eosinophils # (Auto) 0.1 Thou/mm3 (0.0-0.5); Eosinophils % (Auto) 1 % (0-10); Hematocrit 41.0 % (41.0-53.0); Hemoglobin 13.9 g/dL (13.5-16.0); Immature Granulocytes Auto 0.10 Thou/mm3 (0.00-0.00); Lymphocytes # (Auto) 1.3 Thou/mm3 (1.0-4.8); Lymphocytes % (Auto) 13 % (10-50); Mean Corpuscular HGB Conc 33.9 g/dl (31.0-37.0); Mean Corpuscular Hemoglobin 30.5 pg (25.0-35.0); Mean Corpuscular Volume 90 fL (80-100); Monocytes # (Auto) 0.6 Thou/mm3 (0.0-0.8); Monocytes % (Auto) 6 % (0-12); Neutrophils # (Auto) 7.9 Thou/mm3 (1.8-7.7); Neutrophils % (Auto) 79 % (37-80); Nucleated Red Blood Cell # 0.00 Thou/mm3 (0.00-0.00); Nucleated Red Blood Cell % 0 /100 WBC (0); Platelet Count 212 Thou/mm3 (140-440); RDW Standard Deviation 42.2 fL (35.1-43.9); Red Blood Count 4.56 Miln/mm3 (4.50-5.90); White Blood Count 10.0 Thou/mm3 (3.8-10.6)
[2024-11-22 08:02] LABS: Glucose Estimated Average 123 mg/dL (80-131); Hemoglobin A1C 5.9 % Hgb (4.8-6.0)
[2024-11-22 08:05] LABS: Alanine Aminotransferase 19 U/L (10-49); Albumin, Serum 3.7 gm/dL (3.4-4.8); Albumin/Globulin Ratio 2.5 (1.2-2.2); Alkaline Phosphatase 179 U/L (46-116); Anion Gap 7 (7-16); Aspartate Amino Transferase 17 U/L (0-34); BUN/Creatinine Ratio 16 Ratio (12-20); Bilirubin,Total 0.7 mg/dL (0.3-1.2); Blood Urea Nitrogen 13 mg/dL (9-23); Calcium 9.1 mg/dL (8.3-10.6); Calcium (Corrected) 9.3 mg/dL (8.5-10.1); Carbon Dioxide 27.3 mMol/L (20.0-31.0); Cardiac Risk Estimate 2.7 RATIO (4.0-6.7); Chloride 109 mMol/L (98-107); Cholesterol 123 mg/dL (132-200); Creatinine (Component) 0.8 mg/dL (0.6-1.3); Estimated Creatinine Clearance 91.4 mL/min (>60); Free T4 (Free Thyroxine) 1.08 ng/dL (0.89-1.76); Globulin 1.5 gm/dL (2.3-3.5); Glucose 98 mg/dL (74-106); HDL Cholesterol 45 mg/dL (40-60); LDL Cholesterol,Calculated 61 mg/dL (0-130); Magnesium 2.0 mg/dL (1.6-2.6); Osmolality,Calculated 285 (275-295); Phosphorous 2.9 mg/dL (2.4-5.1); Potassium 3.8 mMol/L (3.4-5.1); Sodium 143 mMol/L (136-145); Thyroid Stimulating Hormone 1.94 uIU/mL (0.55-4.78); Total Protein 5.2 gm/dL (5.7-8.2); Triglycerides 84 mg/dL (30-150); eGFR > 60 See Note
[2024-11-22 08:23] LABS: Folate 20.31 ng/mL (>5.38); Vitamin B12 302 pg/mL (211-911)
--- NOTE | 2024-11-22 08:43 | PC.SS ---
Update: Patient receiving IV antibiotics. Urine culture is pending. Neurology recommendations are pending.
[2024-11-22] MEDS: CARBIDOPA/LEVODOPA CR 50/200 TABCR 1 TAB PO ×2 (08:46→21:09)
[2024-11-22] MEDS: NICOTINE PATCH 21 MG/24 HR PATCH.TD24 TOP (08:46)
[2024-11-22] MEDS: HEPARIN SOD INJ 5000 UNIT/ML VIAL SC ×2 (08:46→21:09)
--- NOTE | 2024-11-22 10:07 | ESCONSULT_ITS ---
HPI Data of Consult Requesting Physician: Mayra Angelo DO Admitting Provider: Mayra Angelo DO Attending Provider: Mayra Angelo DO Primary Care Provider: Physician No Primary/Family Consult Narrative History of present illness: CC: consufed. Patient is a 79 year old male with past medical history of Hypertension, Hyerlipidemia, Parkinson's Disease, and history of BPH who presented to the emergency room on 11/21/2024 with a chief complain of drooling, increased confusion, and left sided weakness over the course of two days. Pateint stated his daughter, who he lives at home with was concern for increased confusion and left sided weakness, but he was concern for overall generalized weakness. Pateint stated at baseline he has upper extremity tremors and feels some weakness. Patient struggles to ambulate at home depsite having access to cane, patient is mostly uses wheel chair. Patient denied slurred speech and stated this speech patter was near his baseline. Stated increase frequency and mild pain with urination. Patient denied recent sick contact. Denied shortness of breath or chest pain. Paitnet was saturating well on room air. Patient was admitted on 11/21/2024 for acute metabolic encephaloapthy, likely secondary to urinary tract infeciton. ER Course: Vitals: BP 146/76, HR 71, RR 20, T97.8, SpO2 96% RA WBC 11.1 CMP: NA 44, K3.7, bicarb 28.1, BUN 18, creatinine 1.2 (baseline between 0.8 and 1, GFR greater than 60, glucose 108, AST 20, ALT <7, alkaline phosphatase 177 Troponin less than been 0.02 CT head negative Head/neck CTA: Negative, significant thyromegaly with multiple thyroid nodules EEG sinus rhythm possible right bundle branch block Telemetry neuroconsulted: CT head recommended PMH: Parkinson disease, BPH, hypertension, hyperlipidemia. PSH: Prostate surgery 04/2023, cataract surgery, lower back surgery SH: Denies drinking alcohol or using illicit drugs. Active smoker for 40+ years 1 pack a day, currently smokes to 3 cigarettes a day. FH: Diabetes in his mother. Allergies: NKA. Medications: Amantadine, atorvastatin, carbidopa-levodopa, entacapone, finasteride, furosemide, hydrochlorothiazide, Lisniopril, melatonin, pramipexole, tamsulosin, trihexyphenidyl. cc:: cc: Mayra Angelo DO Review of Systems Review of Systems Narrative Review of Systems: General appearance: NO weight change, NO fatigue, NO weakness, NO fever, NO chills, NO night sweats, No cough Skin: NO rash, NO itching, NO sores, NO moles HEENT: NO Trauma, NO nausea, NO vomiting, NO visual changes, NO blurry vision, NO double vision, NO tinnitus, NO vertigo, NO ear discharge, NO rhinorrhea, NO stuffiness, NO sneezing, NO allergy, NO epistaxis. NO Hoarseness, NO sore throat, NO swollen neck. Cardiac: NO Palpitations, NO dyspnea on exertion, NO orthopnea, NO paroxysmal nocturnal dyspnea, NO edema Respiratory: NO Shortness of Breath, NO Wheezing, NO Cough, NO Sputum, NO hemoptysis GI:NO appetite, NO nausea, NO vomiting, NO dysphagia, NO changes in bowel frequency, NO stool color, NO diarrhea, NO constipation, NO hemetemesis, NO hemorrhoids, NO melena, NO hematechezia, NO abdominal pain, NO jaundice Renal: NO frequency, NO hesitancy, NO urgency, NO hematuria, NO nocturia, NO incontinence MSK: Generalized body weakness, NO gout, NO arthritis, NO muscle stiffness Neuro: NO headaches, NO tremors, NO weakness, NO paralysis, NO seizures, NO loss of consciousness, NO numbness. Hem: NO anemia, NO easy bruising/bleeding, NO petechiae, NO purpura Endo: NO heat/cold intolerance, NO excessive sweating, NO polyuria, NO polydipsia, NO polyphagia, NO thyroid problems, NO diabetes Pysch: NO mood, NO anxiety, NO depression Exam Vital Signs Temp Pulse Resp BP Pulse Ox O2 Del Method 97.0 F 73 18 158/80 H 95 Room Air 11/22/24 08:00 11/22/24 08:00 11/22/24 08:00 11/22/24 08:00 11/22/24 08:00 11/22/24 08:00 Narrative Exam General Appearance: Alert & Oriented X2, well-nourished male who is lying in bed in no acute distress HEENT: Skull symmetrical and atraumatic. Conjunctivae pale pink and moist. Pupils equal, round, reactive to light and accommodation (PERRL). External ear without lesion or discharge. Straight, nares patient, mucosa pink, no discharge. Cardio: Normal Rate and Rhythm with S1 and S2 heart sounds. No murmurs or extra heart sounds auscultated. No bruits on carotid auscultation. No peripheral edema or cyanosis. Lungs: Symmetric with good expansion. Chest and back non-tender. Breath sounds vesicular without crackles, wheezing or rhonchi Abdomen: Non-tender, Non-distended, Normal Reactive Bowel Sounds Neuro: Yes Alert, Yes cooperative, Yes oriented to person, NO place, and Yes time. Speech, slurred, but not new. CN grossly intact. Upper motor strength 5/5 and Lower motor strength 4/5. Sensation intact. Bilateral upper extremity tremors. No facial droop noted or nasal fold depression. Results Labs 11/23/24 04:53 11/23/24 04:53 Labs: Short CBC 11/21/24 11/22/24 Range/Units 14:05 07:30 WBC 11.1 H 10.0 (3.8-10.6) Thou/mm3 Hgb 13.7 13.9 (13.5-16.0) g/dL Hct 41.7 41.0 (41.0-53.0) % Plt Count 239 212 (140-440) Thou/mm3 BMP 11/21/24 11/22/24 14:05 07:30 Sodium 144 143 Potassium 3.7 3.8 Chloride 108 H 109 H Carbon Dioxide 28.1 27.3 BUN 18 13 Creatinine 1.2 0.8 Glucose 108 H 98 Calcium 9.3 9.1 Cardiac Enzymes 11/21/24 Range/Units 14:05 Troponin I < 0.020 (0.0-0.045) ng/mL Liver Function 11/21/24 11/22/24 Range/Units 14:05 07:30 Total Bilirubin 0.4 0.7 (0.3-1.2) mg/dL AST 20 17 (0-34) U/L ALT < 7 L 19 (10-49) U/L Alkaline Phosphatase 177 H 179 H (46-116) U/L Albumin 4.0 3.7 (3.4-4.8) gm/dL Urine 11/21/24 Range/Units 17:39 Urine Color Drk-Yellow A (Lt Yel-Yel) Urine Clarity Turbid A (Clear/Hazy) Urine pH 8.5 H (5.0-7.0) Ur Specific [place] 1.036 H (1.001-1.035) Urine Protein 3+ A (Neg - Trace) Urine Glucose (UA) Negative (Negative) Quality Measures Quality Measures stroke Suspected type of Stroke: Non Acute Last known well (date): 11/20/24 Last known well (time): 14:00 Tenecteplase given: Reason(s) Tenecteplase not given: Outside the time window not given Rehab services: PT evaluation ordered and Speech Language Pathology eval ordered VTE Prophylaxis: pharmaceutical Antithrombotic by day 2:: ordered Statin ordered: <75 y/o high intensity dose Anticoagulation ordered for A-fib or flutter (current or hx): not indicated Advance care planning discussed with:: patient Medications Home Medications and Allergies Home Medications ?Medication ?Instructions ?Recorded ?Confirmed ?Type amantadine HCl 100 mg capsule 1 cap PO BID 10/02/21 History carbidopa ER 50 mg-levodopa 200 mg 1 tab PO TID 11/22/24 History tablet,extended release entacapone 200 mg tablet 1 tab PO Q12H 10/02/2111/22 History finasteride 5 mg tablet 1 tab PO QDAY 10/02/2111/22 History pramipexole 0.5 mg tablet 1 tab PO Q8H 10/02/21 History trihexyphenidyl 5 mg tablet 2 mg PO BID 01/19/2211/22 History lisinopril 40 mg tablet 40 mg PO QDAY 03/24/2411/22 History meloxicam 15 mg tablet 15 mg PO QDAY 03/24/2411/22 History pimavanserin 34 mg capsule 34 mg PO QDAY 03/24/2411/04 History furosemide 20 mg tablet 20 mg PO QDAY PRN edema 11/0411/22/24 History hydrochlorothiazide 12.5 mg tablet 12.5 mg PO QDAY 11/22/24 History nitrofurantoin macrocrystal 100 mg 100 mg PO BID 11/2211/22/24 History capsule tamsulosin 0.4 mg capsule 0.4 mg PO QPM 11/22/2411/22 History Allergies Allergy/AdvReac Type Severity Reaction Status Date / Time No Known Allergies Allergy Verified 11/21/24 15:19 Visit Medications Acetaminophen (Acetaminophen 325 Mg Tablet) 650 mg PO Q6H PRN PRN Reason: Pain (1-3) & Fever >100.4 Stop: 12/21/24 18:15 Amantadine HCl (Amantadine Hcl 100 Mg Capsule) 100 mg PO BID@0600,1400 [facility] Stop: 11/29/24 05:59 Last Admin: 11/22/24 05:37 Dose: Not Given Atorvastatin Calcium (Atorvastatin Calcium 20 Mg Tablet) 40 mg PO HS [facility] Stop: 12/21/24 20:59 Last Admin: 11/21/24 22:13 Dose: 40 mg Carbidopa/Levodopa (Carbidopa/Levodopa Cr 50/200 Tabcr) 1 tab PO BID [facility] Stop: 12/21/24 20:59 Last Admin: 11/22/24 08:46 Dose: 1 tab Entacapone (Entacapone 200 Mg Tablet (Non-Formulary)) 200 mg PO BID [facility] Stop: 12/21/24 20:59 Heparin Sodium (Porcine) (Heparin Sod Inj 5000 Unit/Ml Vial) 5,000 unit SC Q12HR [facility] Stop: 12/05/24 18:29 Last Admin: 11/22/24 08:46 Dose: 5,000 unit Ceftriaxone Sodium/Dextrose (Rocephin/D5w 1gm Iv Premix) 1 gm in 50 mls @ 100 mls/hr IV QDAY@1400 [facility] Stop: 11/28/24 18:21 Last Admin: 11/21/24 18:54 Dose: 100 mls/hr Nicotine (Nicotine Patch 21 Mg/24 Hr Patch.Td24) 21 mg TOP QDAY [facility] Stop: 12/22/24 08:59 Last Admin: 11/22/24 08:46 Dose: 21 mg Home Medication- Please Speak With Patient Caregiver To Have Rx Brought To [facility] 2 mg PO BID [facility] Stop: 12/21/24 18:59 Home Medication- Please Speak With Patient Caregiver To Have Rx Brought To [facility] 34 mg PO QDAY [facility] Stop: 12/21/24 19:14 Home Medication- Please Speak With Patient Caregiver To Have Rx Brought To [facility] 200 ea PO BID [facility] Stop: 12/21/24 19:29 Ondansetron HCl (Ondansetron Inj 2 Mg/Ml Inj 2 Ml) 4 mg IVP Q6H PRN; Protocol PRN Reason: NAUSEA OR VOMITING Stop: 12/21/24 18:15 Pramipexole Dihydrochloride (Pramipexole 0.25 Mg Tablet) 0.5 mg PO TID [facility] Stop: 12/21/24 21:59 Last Admin: 11/22/24 05:37 Dose: Not Given Discontinued Medications Sodium Chloride (Ns) 1,000 mls @ 60 mls/hr IV .[id number] [facility] Stop: 11/22/24 08:24 Last Admin: 11/21/24 18:53 Dose: 60 mls/hr Assessment & Plan Plan Patient is a 79 year old male with past medical history of Hypertension, Hyerlipidemia, Parkinson's Disease, and history of BPH who was admitted for acute metabolic encephalopathy. #Acute metabolic encephalopathy, likely secondary to urinary tract infection #UTI Patient stated he has generalized weakness, history of falls, but worsened recently, and patient's daughter was concern there were upper extremity weakness. Paitnet was confused on admission, but does have a history of Parkinson Disease and appears to wax and wane. Alerta and Orientated X 2. Given luekocytosis, positive UA, and history of BPH, likely altered mental status secondary to UTI leading to delirium vs stroke less likely as concern with generalized body weakness vs vitmaine deficiency less likely CT scan of head negative for acute hemorrhage mass effect or midline shift. CTA head and neck shows significant thyromegaly with multiple thyroid nodules, no significant neck arterial stenosis, no cerebral large vessel arterial occlusion or thrombus Lipid Panel Cholesterol 123, Triglycerides 84, LDL 61, HDL 45 ASCVD: 36.8%, no statins recommended given age group, none the less, may add Atorvastatin 20 mg PO HS, based on primary teams discretion. Plan -Treat underlying cause -NO MRI, if patient condition worsen consider MRI -Continue home medication -PT-->recommending SNF #Parkinson Disease Patient has a past medical history of parkinson disease and does not typically ambulated. Given concern for decreased motor function, PT recommended patient do SNF for improved motor function. After medication recondillaiton, please resume medication for Parkinson disease. Plan: -Continue home medication of carbidopa-levodopa, entacapone, pramipexole, and trihexyphenidyl #Leukocytosis #HTN #HLD #LUIS FERNANDO, improving #BPH #Normocytic Anemia #Ncotine Dependence, current smoker - The patient's plan was discussed with attending Dr. Stef Jimenez MD PGY2 Internal Medicine Attending Provider Attestation/Addendum I personally have seen and examined the patient at the bedside and I agreed with the resident's findings, assessment and plan of care. Impression altered mental status secondary to urinary tract infection; Parkinson's disease with psychosis stable on current medications including carbidopa levodopa, entacapone, pramipexole, amantadine, Nuplazid. Will continue to monitor him closely, follow-up with urine culture and sensitivity. Continue with the current antibiotics. Consider physical therapy when stable
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
[2024-11-22] MEDS: TRIHEXYPHENIDYL 2 MG PO ×2 (11:16→21:10)
[2024-11-22] MEDS: ENTACAPONE 200MG TABLET PO ×2 (11:18→21:10)
[2024-11-22] MEDS: NUPLAZID 34MG CAPSULE PO (11:19)
[2024-11-22] MEDS: PRAMIPEXOLE 0.25 MG TABLET 0.5 MG PO ×2 (14:14→21:17)
[2024-11-22] MEDS: cefTRIAXone/D5w 1gm IV premix 1 GM/50 ML BAG IV (14:14)
--- NOTE | 2024-11-22 15:02 | PC.SS ---
SPECIAL TRACKWORK BLACKSMITH conducted bedside contact with the patient conduct initial assessment and to discuss discharge planning.? Patient confirmed demographic information.? Patient resides at home with daughter, Marry Conroy .? Patient is retired. ?Patient utilizes a wheelchair to assist with mobility.? Patient does not utilize home oxygen.? Patient describes ability to complete ADL?s independently.? Patient identified son, Marvel Julian ; as surrogate medical decision maker.? Patient?s PCP is Dr. Mike Patel.? Dr. Trejo is the patient?s mechanical engineer.? Discharge plan is for the patient to transition to SNF.? Preferred SNF is [facility].? Patient possesses coverage for transport upon discharge.? No further discharge needs identified by the patient.? No further intervention required at this time, social media director will be available to address any further concerns.? Next of Kin: Marvel Julian D/C Plan: SNF
--- NOTE | 2024-11-22 17:21 | PC.SS ---
SNF referral's submitted on [facility]. Responses pending. Preferred SNF is [facility].
--- NOTE | 2024-11-22 17:21 | PC.SS ---
PASSR completed. Patient meets Level I criteria. No follow up required.
[2024-11-22] MEDS: ATORVASTATIN CALCIUM 20 MG TABLET 40 MG PO (21:09)
[2024-11-23] VITALS (9 sets, daily range): BP systolic 130–162; BP diastolic 66–87; PULSE 64–80; RESP 14–97; TEMP 36.1–36.6; O2SAT 95–98; BMI 31.1; BMI 11.0
[2024-11-23] MEDS: PRAMIPEXOLE 0.25 MG TABLET 0.5 MG PO ×3 (05:08→21:31)
[2024-11-23 06:01] LABS: Basophils # (Auto) 0.1 Thou/mm3 (0.0-0.2); Basophils % (Auto) 1 % (0-2.5); Eosinophils # (Auto) 0.3 Thou/mm3 (0.0-0.5); Eosinophils % (Auto) 3 % (0-10); Hematocrit 41.3 % (41.0-53.0); Hemoglobin 13.6 g/dL (13.5-16.0); Immature Granulocytes Auto 0.02 Thou/mm3 (0.00-0.00); Lymphocytes # (Auto) 1.8 Thou/mm3 (1.0-4.8); Lymphocytes % (Auto) 20 % (10-50); Mean Corpuscular HGB Conc 32.9 g/dl (31.0-37.0); Mean Corpuscular Hemoglobin 29.9 pg (25.0-35.0); Mean Corpuscular Volume 91 fL (80-100); Monocytes # (Auto) 0.7 Thou/mm3 (0.0-0.8); Monocytes % (Auto) 8 % (0-12); Neutrophils # (Auto) 6.0 Thou/mm3 (1.8-7.7); Neutrophils % (Auto) 68 % (37-80); Nucleated Red Blood Cell # 0.00 Thou/mm3 (0.00-0.00); Nucleated Red Blood Cell % 0 /100 WBC (0); Platelet Count 192 Thou/mm3 (140-440); RDW Standard Deviation 43.8 fL (35.1-43.9); Red Blood Count 4.55 Miln/mm3 (4.50-5.90); White Blood Count 8.9 Thou/mm3 (3.8-10.6)
[2024-11-23 06:26] LABS: Alanine Aminotransferase < 7 U/L (10-49); Albumin, Serum 3.7 gm/dL (3.4-4.8); Albumin/Globulin Ratio 2.3 (1.2-2.2); Alkaline Phosphatase 162 U/L (46-116); Anion Gap 7 (7-16); Aspartate Amino Transferase 15 U/L (0-34); BUN/Creatinine Ratio 14 Ratio (12-20); Bilirubin,Total 0.4 mg/dL (0.3-1.2); Blood Urea Nitrogen 14 mg/dL (9-23); Calcium 9.2 mg/dL (8.3-10.6); Calcium (Corrected) 9.4 mg/dL (8.5-10.1); Carbon Dioxide 28.3 mMol/L (20.0-31.0); Chloride 109 mMol/L (98-107); Creatinine (Component) 1.0 mg/dL (0.6-1.3); Estimated Creatinine Clearance 72.8 mL/min (>60); Globulin 1.6 gm/dL (2.3-3.5); Glucose 122 mg/dL (74-106); Magnesium 1.7 mg/dL (1.6-2.6); Osmolality,Calculated 288 (275-295); Phosphorous 2.4 mg/dL (2.4-5.1); Potassium 3.5 mMol/L (3.4-5.1); Sodium 144 mMol/L (136-145); Total Protein 5.3 gm/dL (5.7-8.2); eGFR > 60 See Note
[2024-11-23] MEDS: ENTACAPONE 200MG TABLET PO ×2 (09:29→20:20)
[2024-11-23] MEDS: NICOTINE PATCH 21 MG/24 HR PATCH.TD24 TOP (09:29)
[2024-11-23] MEDS: TRIHEXYPHENIDYL 2 MG PO ×2 (09:29→20:19)
[2024-11-23] MEDS: NUPLAZID 34MG CAPSULE PO (09:29)
[2024-11-23] MEDS: HEPARIN SOD INJ 5000 UNIT/ML VIAL SC ×2 (09:29→20:19)
[2024-11-23] MEDS: CARBIDOPA/LEVODOPA CR 50/200 TABCR 1 TAB PO ×2 (09:30→20:19)
--- NOTE | 2024-11-23 09:33 | ESPR_ITS ---
<Statement entered by Danielle Brown MD - 11/24/24 09:42> Patient was seen and examined at bedside. I agree on the assessment and plan on this note as documented by resident Tanja Patel DO PGY1. 79-year-old male with past medical history as below seen and examined at bedside mentation at baseline, did not require restraints overnight. Neurology recommends no MRI for now, continuation of Parkinson's medication and monitoring mentation closely. Physical therapy recommends SNF placement, informed geriatric social work professor to begin authorization for SNF. Patient is otherwise pending urine cultures, patient's underlying symptoms likely secondary to UTI though patient was treated outpatient with Macrobid previously urine cultures grew Proteus which was resistant to Macrobid, disposition will likely be discharged to SNF in a.m. post culture sensitivities. Case discussed with attending Dr. Tian Silva MD. Danielle Brown MD PGY-2 Documentation for date of: 11/23/24 Subjective Subjective Interval history: Overnight events. Patient seen and examined at bedside. Patient reports feeling well today, is ANO x [address] Denies urinary symptoms, shortness of breath or fever. Last bowel movement prior to admission. Preliminary UCx GNR, continue ceftriaxone. Restart home lisinopril 40 mg QD and tamsulosin 0.4 mg qhs. K 3.5, repleted KCl 40 mEq. Exam Vital Signs Temp Pulse Resp BP Pulse Ox O2 Del Method 97.1 F 68 22 H 151/77 H 96 Room Air 11/23/24 08:00 11/23/24 08:00 11/23/24 08:00 11/23/24 08:00 11/23/24 08:00 11/23/24 08:00 Narrative Exam GENERAL: AOx2 (person and place), no acute distress, elderly male HEENT: NC/AT, mucous membranes moist, bilateral sclera anicteric CARDIOVASCULAR: regular rate and rhythm, S1/S2 present, no murmurs appreciated PULMONARY: clear to auscultation bilaterally, no rales/rhonchi/wheezes ABDOMINAL: soft, non-tender, non-distended, no rebound/guarding, bowel sounds present EXTREMITIES: no peripheral edema, 5/5 strength BUE and BLE, mild cogwheel rigidity at wrists SKIN: warm and dry, intact, no rashes NEURO: CN II-XII grossly intact, no focal deficits, alert, following commands, nasolabial folds equal, face symmetric, non facial droop appreciated Objective Labs 11/23/24 04:53 11/23/24 04:53 Labs: Laboratory Results - last 24 hr 11/23/24 04:53 WBC 8.9 RBC 4.55 Hgb 13.6 Hct 41.3 MCV 91 MCH 29.9 MCHC 32.9 RDW Std Deviation 43.8 Plt Count 192 Neut % (Auto) 68 Lymph % (Auto) 20 Lee % (Auto) 8 Eos % (Auto) 3 Baso % (Auto) 1 Neut # (Auto) 6.0 Lymph # (Auto) 1.8 Lee # (Auto) 0.7 Eos # (Auto) 0.3 Baso # (Auto) 0.1 Immature Gran # (Auto) 0.02 H Absolute Nucleated RBC 0.00 Immature Gran % 0 Nucleated RBC % 0 Sodium 144 Potassium 3.5 Chloride 109 H Carbon Dioxide 28.3 Anion Gap 7 BUN 14 Creatinine 1.0 Estim Creat Clear Calc 72.8 eGFR > 60 BUN/Creatinine Ratio 14 Glucose 122 H Calculated Osmolality 288 Calcium 9.2 Corrected Calcium 9.4 Phosphorus 2.4 Magnesium 1.7 Total Bilirubin 0.4 AST 15 ALT < 7 L Alkaline Phosphatase 162 H Total Protein 5.3 L Albumin 3.7 Globulin 1.6 L Albumin/Globulin Ratio 2.3 H Quality Measures Quality Measures stroke Suspected type of Stroke: Non Acute Last known well (date): 11/20/24 Last known well (time): 14:00 Tenecteplase given: Reason(s) Tenecteplase not given: Outside the time window not given Rehab services: PT evaluation ordered and Speech Language Pathology eval ordered VTE Prophylaxis: pharmaceutical Antithrombotic by day 2:: not indicated (describe) Statin ordered: not ordered Anticoagulation ordered for A-fib or flutter (current or hx): not indicated Advance care planning discussed with:: patient Assessment & Plan Assessment Current Active Medications: Generic Name Dose Route Start Last Admin Trade Name Freq PRN Reason Stop Dose Admin Acetaminophen 650 mg 11/21/24 18:16 Acetaminophen 325 Mg Tablet PO 12/21/24 18:15 Q6H PRN Pain (1-3) & Fever >100.4 Amantadine HCl 100 mg 11/22/24 06:00 11/23/24 05:08 Amantadine Hcl 100 Mg Capsule PO 11/29/24 05:59 100 mg BID@0600,1400 BRY Administration Atorvastatin Calcium 40 mg 11/21/24 21:00 11/22/24 21:09 Atorvastatin Calcium 20 Mg Tablet PO 12/21/24 20:59 40 mg HS BRY Administration Carbidopa/Levodopa 1 tab 11/21/24 21:00 11/22/24 21:09 Carbidopa/Levodopa Cr 50/200 Tabcr PO 12/21/24 20:59 1 tab BID BRY Administration Triheryphenidyl 2mg 0 ea 11/22/24 10:45 11/22/24 21:10 Tablet PO 12/22/24 10:44 1 tablet BID BRY Administration Entacapone 200mg 0 ea 11/22/24 10:45 11/22/24 21:10 Tablet PO 12/22/24 10:44 1 tablet BID BRY Administration Nuplazid 34mg 0 ea 11/22/24 10:45 11/22/24 11:19 Capsule PO 12/22/24 10:44 1 capsule DAILY BYR Administration Entacapone 200 mg 11/21/24 21:00 Entacapone 200 Mg Tablet (Non-Formulary) PO 12/21/24 20:59 BID BRY Heparin Sodium (Porcine) 5,000 unit 11/21/24 18:30 11/22/24 21:09 Heparin Sod Inj 5000 Unit/Ml Vial SC 12/05/24 18:29 5,000 unit Q12HR BRY Administration Ceftriaxone Sodium/Dextrose 1 gm in 50 mls @ 100 mls/hr 11/21/24 18:22 11/22/24 14:14 Rocephin/D5w 1gm Iv Premix IV 11/28/24 18:21 100 mls/hr QDAY@1400 BRY Administration Nicotine 21 mg 11/22/24 09:00 11/22/24 08:46 Nicotine Patch 21 Mg/24 Hr Patch.Td24 TOP 12/22/24 08:59 21 mg QDAY BRY Administration Ondansetron HCl 4 mg 11/21/24 18:16 Ondansetron Inj 2 Mg/Ml Inj 2 Ml IVP 12/21/24 18:15 Q6H PRN NAUSEA OR VOMITING Protocol Pramipexole Dihydrochloride 0.5 mg 11/21/24 22:00 11/23/24 05:08 Pramipexole 0.25 Mg Tablet PO 12/21/24 21:59 0.5 mg TID BRY Administration Plan Angelo Julian is 79M with pmhx significant for Parkinson's disease, BPH, hypertension and hyperlipidemia who presented to [facility] ED on 11/21/24 for acute left-sided weakness and drooling from left side, admitted for acute encephalopathy workup, likely 2/2 UTI. #Acute encephalopathy, likely infectious, 2/2 #Urinary tract infection #CVA workup, low suspicion of CVA Symptoms of drooling left-sided weakness for the last 2 days per daughter patient not at baseline, was assessed by teleneurology NIHSS 3, teleneurology recommends metabolic and infectious workup. Follows Dr. Finch outpatient for Parkinson's disease management, is on multiple Parkinson disease medications 2 weeks ago, patient was seen by PCP for urinary tract infection, completed treatment with Macrobid CT scan of head negative for acute hemorrhage mass effect or midline shift. CTA head and neck shows significant thyromegaly with multiple thyroid nodules, no significant neck arterial stenosis, no cerebral large vessel arterial occlusion or thrombus Labs: WBC 11.1, UA dark yellow, turbid, pH 8.5, specific gravity 1.036, protein 3+, positive leukocyte esterase, RBC 18, WBC 397, bacteria 4+. U-Tox unremarkable, TSH and T4 wnl, vit B12 and folate wnl, A1c 5.9, cholesterol low UCx GNR preliminary Plan: - Ceftriaxone IV (11/21- - Neurology consulted, appreciate recommendations: No MRI, continue home Parkinson medication - Neurocheck every 4 hours - Physical therapy ordered: recommend SNF - Aspiration precautions, elevate head of bed 30 degrees #Multiple thyroid nodules CTA head and neck shows significant thyromegaly with multiple thyroid nodules. TSH and T4 wnl. Plan: - CTM vitals and mental status - Recommend to f/u outpatient for further management #Parkinson's disease with dementia Patient has diagnosed history of Parkinson's disease follows Dr. Finch neurology. Plan: -Patient daughter will bring home dose carbidopa levodopa, amantadine, entacapone, pramipexole, trihexyphenidyl and pimavanserin -Neurology consulted, appreciate recommendations: continue meds as above #Hypertension #Hyperlipidemia Reportedly patient on lisinopril and hydrochlorothiazide for blood pressure management Plan: - Restart lisinoril 40 mg QD #BPH, by history Patient on Flomax at home and follows Dr. Josue outpatient. Plan: - Continue outpatient management - Restart tamsulosin 0.4 mg qhs #Nicotine dependence Currently an active smoker Plan: - Nicotine patches Hospital management: Lines: peripheral IV Diet: Cardiac Bowel: None GI prophylaxis: None DVT prophylaxis: hepatin q12 Disposition: tele for abx CODE STATUS: Full code Plan of care discussed with attending Dr. Silva, and PGY-2 Dr. Brown. Tanja Patel, DO PGY-1 Internal Medicine Attending Provider Attestation/Addendum I attest that I was physically present for the evaluation, physical examination, lab and imaging review of the patient with the residents. I discussed the case with the residents and agree with the findings and plans of care as documented above. At bedside today, patient states she is feeling well and denies any new complaints. Has been alert and awake, able to answer questions and follow commands appropriately. Continues to be on IV Rocephin, urine culture grew GNR. Resumed home lisinopril and tamsulosin. Potassium level noted to be 3.5 this morning, repleted accordingly. Awaiting culture results. Tian Silva MD
[2024-11-23] MEDS: POTASSIUM CHLORIDE 10% 20 MEQ/15 ML UDC 40 MEQ PO (10:55)
--- NOTE | 2024-11-23 14:20 | ESPR_ITS ---
Documentation for date of: 11/23/24 Subjective Subjective Interval history: Patient is a 79 year old male with past medical history of Hypertension, Hyerlipidemia, Parkinson's Disease, and history of BPH who was admitted for acute metabolic encphaloapthy, likely secondary to UTI. 11/24/2024: No overnight events reported. Patient denied any chills or pyrexia overnight. Patient overall was able to sleep well overnight. Improved dysuria. Mild tremors noted, likely secondary to Parkinson' Disease. Alert and Orientated X 3. Urine Culture: GNR, antibiotics already on board by primary team. [facility] recommended--->patinet would like to go to [facility]. Exam Vital Signs Temp Pulse Resp BP Pulse Ox O2 Del Method 97.8 F 74 14 132/70 H 98 Room Air 11/23/24 12:00 11/23/24 12:00 11/23/24 12:00 11/23/24 12:00 11/23/24 12:00 11/23/24 12:00 Narrative Exam General Appearance: Alert & Oriented X2, well-nourished male who is lying in bed in no acute distress HEENT: Skull symmetrical and atraumatic. Conjunctivae pale pink and moist. Pupils equal, round, reactive to light and accommodation (PERRL). External ear without lesion or discharge. Straight, nares patient, mucosa pink, no discharge. Cardio: Normal Rate and Rhythm with S1 and S2 heart sounds. No murmurs or extra heart sounds auscultated. No bruits on carotid auscultation. No peripheral edema or cyanosis. Lungs: Symmetric with good expansion. Chest and back non-tender. Breath sounds vesicular without crackles, wheezing or rhonchi Abdomen: Non-tender, Non-distended, Normal Reactive Bowel Sounds Neuro: Yes Alert, Yes cooperative, Yes oriented to person, NO place, and Yes time. Speech, slurred, but not new. CN grossly intact. Upper motor strength 5/5 and Lower motor strength 4/5. Sensation intact. Bilateral upper extremity tremors. No facial droop noted or nasal fold depression. Objective Labs 11/23/24 04:53 11/23/24 04:53 Labs: Laboratory Results - last 24 hr 11/23/24 04:53 WBC 8.9 RBC 4.55 Hgb 13.6 Hct 41.3 MCV 91 MCH 29.9 MCHC 32.9 RDW Std Deviation 43.8 Plt Count 192 Neut % (Auto) 68 Lymph % (Auto) 20 [place] % (Auto) 8 Eos % (Auto) 3 Baso % (Auto) 1 Neut # (Auto) 6.0 Lymph # (Auto) 1.8 [place] # (Auto) 0.7 Eos # (Auto) 0.3 Baso # (Auto) 0.1 Immature Gran # (Auto) 0.02 H Absolute Nucleated RBC 0.00 Immature Gran % 0 Nucleated RBC % 0 Sodium 144 Potassium 3.5 Chloride 109 H Carbon Dioxide 28.3 Anion Gap 7 BUN 14 Creatinine 1.0 Estim Creat Clear Calc 72.8 eGFR > 60 BUN/Creatinine Ratio 14 Glucose 122 H Calculated Osmolality 288 Calcium 9.2 Corrected Calcium 9.4 Phosphorus 2.4 Magnesium 1.7 Total Bilirubin 0.4 AST 15 ALT < 7 L Alkaline Phosphatase 162 H Total Protein 5.3 L Albumin 3.7 Globulin 1.6 L Albumin/Globulin Ratio 2.3 H Quality Measures Quality Measures stroke Suspected type of Stroke: Non Acute Last known well (date): 11/20/24 Last known well (time): 14:00 Tenecteplase given: Reason(s) Tenecteplase not given: Outside the time window not given Rehab services: PT evaluation ordered and Speech Language Pathology eval ordered VTE Prophylaxis: pharmaceutical Antithrombotic by day 2:: ordered Statin ordered: <75 y/o high intensity dose Anticoagulation ordered for A-fib or flutter (current or hx): not indicated Advance care planning discussed with:: patient Assessment & Plan Assessment Current Active Medications: Generic Name Dose Route Start Last Admin Trade Name Docq PRN Reason Stop Dose Admin Acetaminophen 650 mg 11/21/24 18:16 Acetaminophen 325 Mg Tablet PO 12/21/24 18:15 Q6H PRN Pain (1-3) & Fever >100.4 Amantadine HCl 100 mg 11/22/24 06:00 11/23/24 05:08 Amantadine Hcl 100 Mg Capsule PO 11/29/24 05:59 100 mg BID@0600,1400 BRY Administration Atorvastatin Calcium 40 mg 11/21/24 21:00 11/22/24 21:09 Atorvastatin Calcium 20 Mg Tablet PO 12/21/24 20:59 40 mg HS BRY Administration Carbidopa/Levodopa 1 tab 11/21/24 21:00 11/23/24 09:30 Carbidopa/Levodopa Cr 50/200 Tabcr PO 12/21/24 20:59 1 tab BID BRY Administration Triheryphenidyl 2mg 0 ea 11/22/24 10:45 11/23/24 09:29 Tablet PO 12/22/24 10:44 1 tablet BID BRY Administration Entacapone 200mg 0 ea 11/22/24 10:45 11/23/24 09:29 Tablet PO 12/22/24 10:44 1 tablet BID BRY Administration Nuplazid 34mg 0 ea 11/22/24 10:45 11/23/24 09:29 Capsule PO 12/22/24 10:44 1 capsule DAILY BRY Administration Entacapone 200 mg 11/21/24 21:00 Entacapone 200 Mg Tablet (Non-Formulary) PO 12/21/24 20:59 BID BRY Heparin Sodium (Porcine) 5,000 unit 11/21/24 18:30 11/23/24 09:29 Heparin Sod Inj 5000 Unit/Ml Vial SC 12/05/24 18:29 5,000 unit Q12HR BRY Administration Ceftriaxone Sodium/Dextrose 1 gm in 50 mls @ 100 mls/hr 11/21/24 18:22 11/22/24 14:14 Rocephin/D5w 1gm Iv Premix IV 11/28/24 18:21 100 mls/hr QDAY@1400 BRY Administration Lisinopril 40 mg 11/23/24 10:15 11/23/24 10:56 Lisinopril 20 Mg Tablet PO 12/23/24 10:14 40 mg QDAY BRY Administration Nicotine 21 mg 11/22/24 09:00 11/23/24 09:29 Nicotine Patch 21 Mg/24 Hr Patch.Td24 TOP 12/22/24 08:59 21 mg QDAY BRY Administration Ondansetron HCl 4 mg 11/21/24 18:16 Ondansetron Inj 2 Mg/Ml Inj 2 Ml IVP 12/21/24 18:15 Q6H PRN NAUSEA OR VOMITING Protocol Pramipexole Dihydrochloride 0.5 mg 11/21/24 22:00 11/23/24 05:08 Pramipexole 0.25 Mg Tablet PO 12/21/24 21:59 0.5 mg TID BRY Administration Tamsulosin HCl 0.4 mg 11/23/24 21:00 Tamsulosin Hcl 0.4 Mg Capsule PO 12/23/24 20:59 QPM BRY Plan Patient is a 79 year old male with past medical history of Hypertension, Hyerlipidemia, Parkinson's Disease, and history of BPH who was admitted for acute metabolic encephalopathy. #Acute metabolic encephalopathy, likely secondary to urinary tract infection #UTI Patient stated he has generalized weakness, history of falls, but worsened recently, and patient's daughter was concern there were upper extremity weakness. Venkattnathan was confused on admission, but does have a history of Parkinson Disease and appears to wax and wane. Alerta and Orientated X 2. Given luekocytosis, positive UA, and history of BPH, likely altered mental status secondary to UTI leading to delirium vs stroke less likely as concern with generalized body weakness vs vitmaine deficiency less likely CT scan of head negative for acute hemorrhage mass effect or midline shift. CTA head and neck shows significant thyromegaly with multiple thyroid nodules, no significant neck arterial stenosis, no cerebral large vessel arterial occlusion or thrombus Lipid Panel Cholesterol 123, Triglycerides 84, LDL 61, HDL 45 ASCVD: 36.8%, no statins recommended given age group, none the less, may add Atorvastatin 20 mg PO HS, based on primary teams discretion. Plan -Treat underlying cause, UTI, continue antibiotics. -NO MRI, if patient condition worsen consider MRI -Continue home medication -PT-->recommending SNF-->[facility]. #Parkinson Disease Patient has a past medical history of parkinson disease and does not typically ambulated. Given concern for decreased motor function, PT recommended patient do SNF for improved motor function. After medication recondillaiton, please resume medication for Parkinson disease. Plan: -Continue home medication of carbidopa-levodopa, entacapone, pramipexole, and trihexyphenidyl #Leukocytosis, improved #HTN #HLD #LUIS FERNANDO, improving #BPH #Normocytic Anemia #Ncotine Dependence, current smoker - The patient's plan was discussed with attending Dr. Stef Jimenez MD PGY2 Internal Medicine Attending Provider Attestation/Addendum I personally have seen and examined the patient at the bedside and agree with resident's findings, assessment and plan of care. 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
[2024-11-23] MEDS: cefTRIAXone/D5w 1gm IV premix 1 GM/50 ML BAG IV (14:50)
--- NOTE | 2024-11-23 15:12 | PC.NURSE ---
Hand-off report given to Geri Macdonald RN. Family members Marvel and Marry made aware of patients new room.
--- NOTE | 2024-11-23 16:46 | PC.SS ---
Rounding Note: Patient receiving IV antibiotics. Plan is to d/c to SNF tomorrow.
--- NOTE | 2024-11-23 20:12 | PC.NURSE ---
MD Finch came and seen the pts, daughter Marry at bedside during the rounds.
[2024-11-23] MEDS: ATORVASTATIN CALCIUM 20 MG TABLET 40 MG PO (20:19)
[2024-11-23] MEDS: TAMSULOSIN HCL 0.4 MG CAPSULE PO (20:19)
[2024-11-24] VITALS (8 sets, daily range): BP systolic 108–158; BP diastolic 66–87; PULSE 63–83; RESP 17–98; TEMP 36.1–36.2; O2SAT 93–98; BMI 31.1
[2024-11-24] MEDS: PRAMIPEXOLE 0.25 MG TABLET 0.5 MG PO ×2 (05:10→14:36)
[2024-11-24 06:26] LABS: Basophils # (Auto) 0.0 Thou/mm3 (0.0-0.2); Basophils % (Auto) 1 % (0-2.5); Eosinophils # (Auto) 0.2 Thou/mm3 (0.0-0.5); Eosinophils % (Auto) 2 % (0-10); Hematocrit 41.0 % (41.0-53.0); Hemoglobin 13.7 g/dL (13.5-16.0); Immature Granulocytes Auto 0.02 Thou/mm3 (0.00-0.00); Lymphocytes # (Auto) 1.6 Thou/mm3 (1.0-4.8); Lymphocytes % (Auto) 19 % (10-50); Mean Corpuscular HGB Conc 33.4 g/dl (31.0-37.0); Mean Corpuscular Hemoglobin 30.3 pg (25.0-35.0); Mean Corpuscular Volume 91 fL (80-100); Monocytes # (Auto) 0.6 Thou/mm3 (0.0-0.8); Monocytes % (Auto) 7 % (0-12); Neutrophils # (Auto) 5.8 Thou/mm3 (1.8-7.7); Neutrophils % (Auto) 70 % (37-80); Nucleated Red Blood Cell # 0.00 Thou/mm3 (0.00-0.00); Nucleated Red Blood Cell % 0 /100 WBC (0); Platelet Count 204 Thou/mm3 (140-440); RDW Standard Deviation 43.2 fL (35.1-43.9); Red Blood Count 4.52 Miln/mm3 (4.50-5.90); White Blood Count 8.2 Thou/mm3 (3.8-10.6)
[2024-11-24 06:56] LABS: Alanine Aminotransferase < 7 U/L (10-49); Albumin, Serum 3.9 gm/dL (3.4-4.8); Albumin/Globulin Ratio 2.1 (1.2-2.2); Alkaline Phosphatase 163 U/L (46-116); Anion Gap 11 (7-16); Aspartate Amino Transferase 14 U/L (0-34); BUN/Creatinine Ratio 16 Ratio (12-20); Bilirubin,Total 0.5 mg/dL (0.3-1.2); Blood Urea Nitrogen 14 mg/dL (9-23); Calcium 9.1 mg/dL (8.3-10.6); Calcium (Corrected) 9.2 mg/dL (8.5-10.1); Carbon Dioxide 25.8 mMol/L (20.0-31.0); Chloride 108 mMol/L (98-107); Creatinine (Component) 0.9 mg/dL (0.6-1.3); Estimated Creatinine Clearance 80.9 mL/min (>60); Globulin 1.9 gm/dL (2.3-3.5); Glucose 96 mg/dL (74-106); Magnesium 2.0 mg/dL (1.6-2.6); Osmolality,Calculated 289 (275-295); Phosphorous 2.2 mg/dL (2.4-5.1); Potassium 3.6 mMol/L (3.4-5.1); Sodium 145 mMol/L (136-145); Total Protein 5.8 gm/dL (5.7-8.2); eGFR > 60 See Note
[2024-11-24] MEDS: HEPARIN SOD INJ 5000 UNIT/ML VIAL SC (08:14)
[2024-11-24] MEDS: CARBIDOPA/LEVODOPA CR 50/200 TABCR 1 TAB PO (08:15)
[2024-11-24] MEDS: TRIHEXYPHENIDYL 2 MG PO (08:17)
[2024-11-24] MEDS: NICOTINE PATCH 21 MG/24 HR PATCH.TD24 TOP (08:17)
[2024-11-24] MEDS: ENTACAPONE 200MG TABLET PO (08:18)
[2024-11-24] MEDS: NUPLAZID 34MG CAPSULE PO (08:19)
--- NOTE | 2024-11-24 10:59 | PC.SS ---
PUNCH OUT CREW MEMBER spoke to Maya at [facility] who confirmed patient does not need authorization and requested PASSR be sent over. PUNCH OUT CREW MEMBER submitted PASSR via [employer].
--- NOTE | 2024-11-24 11:44 | PC.SS ---
SEA KAYAKING GUIDE coordinated transportation with [facility], ETA is 2:30PM reference #[id number]. SEA KAYAKING GUIDE informed beside nurse Susan of ETA. SEA KAYAKING GUIDE notified patients family Marvel and patient of ETA.
--- NOTE | 2024-11-24 11:46 | PC.SS ---
LEAFLET OR NEWSPAPER DELIVERER informed Maya at [facility] of ETA.
--- NOTE | 2024-11-24 14:37 | PC.SS ---
FERTILIZER APPLICATOR spoke to [facility] in regards to ETA, [facility] stated that due to an error on their part, they cancelled transportation. [facility] stated that they have escalated the issue to their manager telecom and will call to inform of new ETA, the new reference number is [id number].
--- NOTE | 2024-11-24 14:40 | PC.SS ---
SPLIT AND DRUM ROOM SUPERVISOR informed bedside nurse that new ETA is pending, bedside nurse Susan stated that she would let patient know.
--- NOTE | 2024-11-24 15:46 | PC.SS ---
MEDIA BUYER spoke to [facility] to get ETA, [facility] stated that they are unsure why lifter/driver has not be notified as ETA is 2:30PM, MEDIA BUYER informed tomer that she has called multiple times today. Due to issues with [facility] MEDIA BUYER completed [facility] and scheduled transportation with [facility].
--- NOTE | 2024-11-24 15:56 | PC.SS ---
SS update: New ETA is 1700
--- NOTE | 2024-11-24 19:25 | PD.RESDS ---
Planned Discharge Date 11/24/24 DS: Providers Provider Date of admission: 11/21/24 18:15 Primary care physician: Physician No Primary/Family Admitting Provider: Mayra Angelo DO Attending Provider on Admission: Tian Silva MD Consults: 11/21/24 15:35 Consult to Neurology / Tele-Neurology Routine Comment: Consulting Provider: [facility] 11/21/24 18:19 Consult to Neurology / Tele-Neurology Routine Comment: CVA Workup Consulting Provider: Robert Finch Referral Physical Therapy Routine Comment: CVA Workup Physician Instructions: Referral Speech Therapy Routine Comment: CVA Workup Attending Provider on DC: Nazanin Samuel MD Discharging Provider: Nazanin Samuel MD DS: Diagnosis Problem List Completed Was Problem List Reviewed/Reconciled?: Yes Hospital Course Hospital Course Hospital course: Mr. Julian is 79-year-old male with past medical history of Parkinson's disease, BPH, hypertension and hyperlipidemia presented to [facility] emergency department on November 21, 2024 with a chief complaint of left-sided weakness and drooling from left side. At the time of admission patient was alert and oriented x 3. Patient was admitted to the hospital for acute encephalopathy secondary to UTI as well as CVA workup. CT scan was negative for acute hemorrhage and neurology was consulted per neuro MRI was not recommended since patient's symptoms were likely secondary to the UTI. Urine culture grew Proteus mirabilis for which patient was given IV attics. Patient underwent physical therapy during hospitalization and recommended SNF placement. During hospitalization further imaging also showed significant thyromegaly with multiple thyroid nodules and TSH as well as T4 were within normal limits therefore patient was recommended to follow-up outpatient for further surveillance and management. Over the course of hospitalization patient's symptoms significantly improved, is at his baseline, hemodynamically stable therefore patient is discharged to [facility] where patient will continue the course of antibiotics and remainder of his medications. Discharge Recommendations Please follow up with PCP in 1-2 weeks of discharge Please follow up with Neurology in 1-2 weeks of discharge Discuss about your thyroid nodules with your PCP during next visit. Hospitalization Diagnosis #Acute encephalopathy, likely infectious, 2/2 #Urinary tract infection #CVA workup, low suspicion of CVA #Multiple thyroid nodules #Parkinson's disease with dementia #Hypertension #Hyperlipidemia #BPH, by history #Nicotine dependence Patient was seen and examined by me personally. I have directly supervised and reviewed documentation by the team resident and agree with its findings. ------- Plan of care was discussed with the attending, Dr. Shira Samuel, PGY-2 Time spent discussing smoking cessation with patient: 3 to 10 minutes Time Spent with Patient Time attestation: Total time spent providing and/or coordinating discharge services: 33 min Time spent: Greater than 30 minutes Exam Vital Signs Temp Pulse Resp BP Pulse Ox O2 Del Method 97.2 F 76 19 108/87 H 93 L Humidified Nasal Cannula 11/24/24 16:00 11/24/24 16:00 11/24/24 16:00 11/24/24 16:00 11/24/24 16:11/24/24 16:00 Narrative Exam GENERAL: AOx2 (person and place), no acute distress, elderly male HEENT: NC/AT, mucous membranes moist, bilateral sclera anicteric CARDIOVASCULAR: regular rate and rhythm, S1/S2 present, no murmurs appreciated PULMONARY: clear to auscultation bilaterally, no rales/rhonchi/wheezes ABDOMINAL: soft, non-tender, non-distended, no rebound/guarding, bowel sounds present EXTREMITIES: no peripheral edema, 5/5 strength BUE and BLE, mild cogwheel rigidity at wrists SKIN: warm and dry, intact, no rashes NEURO: CN II-XII grossly intact, no focal deficits, alert, following commands, nasolabial folds equal, face symmetric, non facial droop appreciated Discharge Plan Plan Patient Disposition: Xfer Skilled [facility] (SNF) Patient condition on transfer: Stable Care Plan Goals: Please follow up with PCP in 1-2 weeks of discharge Please follow up with Neurology in 1-2 weeks of discharge Discuss about your thyroid nodules with your PCP during next visit. Prescriptions/Referrals Prescriptions/Med Rec: New cefuroxime axetil 250 mg tablet 250 mg PO BID Qty: 8 0RF amlodipine 5 mg tablet 5 mg PO QDAY Qty: 30 0RF Continued carbidopa-levodopa 50-200 mg tablet extended release 1 tab PO TID amantadine HCl 100 mg capsule 1 cap PO BID Rx Instructions: Take 1 capsule by mouth in the morning and at 2 PM. pramipexole 0.5 mg tablet 1 tab PO Q8H entacapone 200 mg tablet 1 tab PO Q12H finasteride 5 mg tablet 1 tab PO QDAY trihexyphenidyl 5 mg Tablet 2 mg PO BID Rx Instructions: give with food (meal/snack) meloxicam 15 mg Tablet 15 mg PO QDAY lisinopril 40 mg Tablet 40 mg PO QDAY pimavanserin 34 mg Capsule 34 mg PO QDAY furosemide 20 mg tablet 20 mg PO QDAY PRN (Reason: edema) tamsulosin 0.4 mg capsule 0.4 mg PO QPM Patient Comments: TAKE 1 CAPSULE BY MOUTH EVERY NIGHT AT BEDTIME FOR BENIGN PROSTATIC HYPERPLASIA Discontinued nitrofurantoin macrocrystal 100 mg capsule 100 mg PO BID Patient Comments: TAKE 1 CAPSULE BY MOUTH TWICE DAILY FOR 7 DAYS hydrochlorothiazide 12.5 mg tablet 12.5 mg PO QDAY Patient Comments: TAKE 1 TABLET BY MOUTH DAILY Referrals: No Primary/Family,Physician [Primary Care Provider] - Patient/Caregiver Discharge Instructions Print Language: Bulgarian Stand Alone Forms: Kady Award Info., Patient Portal Info Letter Discharge Order Discharge Orders: Discharge (Routine); Ordered 11/24/24 Ordered By: Tian Silva Quality Discharge Quality Measures VTE prophylaxis Attestestation MD Attestation I attest that I was physically present for the evaluation, physical examination, lab and imaging review of the patient with the residents. I discussed the case with the residents and agree with the findings and plans of care as documented above. Tian Silva MD
--- NOTE | 2024-11-24 23:14 | PD.NEUROPROG ---
Documentation for date of: 11/24/24 Subjective Subjective Interval history: Patient is in MedSurg, mental status changes resolved and is back to baseline. Exam - Neurology Vital Signs Temp Pulse Resp BP Pulse Ox O2 Del Method 97.2 F 76 19 108/87 H 93 L Humidified Nasal Cannula 11/24/24 16:00 11/24/24 16:00 11/24/24 16:00 11/24/24 16:00 11/24/24 16:00 11/24/24 16:00 Narrative Exam GENERAL APPEARANCE: Well hydrated, well-nourished in no acute distress. HEENT: Normocephalic, atraumatic, extraocular movements intact. Pupils: Equal reacting to light NECK: Supple, no JVD or bruits. CARDIOVASULAR: Heart: S1, S2 heard, regular without S3-S4 or murmur no rubs or gallops. LUNGS/CHEST: Clear to auscultation bilaterally. No rails, rhonchi, or wheezing. Normal inspection. ABDOMEN: Soft, nontender, with normal bowel sounds. No pulsatile masses. No rebound, rigidity, or guarding. Normal inspection and palpation. EXTREMITIES: Normal inspection and palpation. No edema, clubbing or cyanosis. SKIN: Warm and dry without rashes. Normal inspection. MUSCULOSKELETAL: No cervical, thoracic, lumbar or midline bony tenderness. Normal inspection. NEURO: Alert, awake and oriented x2. cranial nerves: II through XII grossly intact. Speech and language: Normal with no dysarthria or dysphasia. Motor system: Tone and bulk: Normal: Strength: moves all 4 extremities; No pronator drift noted. Deep tendon reflexes: 1+ bilaterally symmetrical. Plantar reflex: Downgoing bilaterally. Sensory system: Intact to all modalities of sensation bilaterally. Rest of the exam: Limited, no signs of meningeal irritation noted. PSYCHIATRIC: Normal mood and affect. Patient continues to have resting tremors, bradykinesia, monotonous speech and masked facial expression consistent with Parkinson's Objective Labs 11/24/24 04:33 11/24/24 04:33 Labs: Laboratory Results - last 24 hr 11/24/24 04:33 WBC 8.2 RBC 4.52 Hgb 13.7 Hct 41.0 MCV 91 MCH 30.3 MCHC 33.4 RDW Std Deviation 43.2 Plt Count 204 Neut % (Auto) 70 Lymph % (Auto) 19 [place] % (Auto) 7 Eos % (Auto) 2 Baso % (Auto) 1 Neut # (Auto) 5.8 Lymph # (Auto) 1.6 [place] # (Auto) 0.6 Eos # (Auto) 0.2 Baso # (Auto) 0.0 Immature Gran # (Auto) 0.02 H Absolute Nucleated RBC 0.00 Immature Gran % 0 Nucleated RBC % 0 Sodium 145 Potassium 3.6 Chloride 108 H Carbon Dioxide 25.8 Anion Gap 11 BUN 14 Creatinine 0.9 Estim Creat Clear Calc 80.9 eGFR > 60 BUN/Creatinine Ratio 16 Glucose 96 Calculated Osmolality 289 Calcium 9.1 Corrected Calcium 9.2 Phosphorus 2.2 L Magnesium 2.0 Total Bilirubin 0.5 AST 14 ALT < 7 L Alkaline Phosphatase 163 H Total Protein 5.8 Albumin 3.9 Globulin 1.9 L Albumin/Globulin Ratio 2.1 Assessment & Plan Assessment and plan (1) Parkinsons disease: Status: Acute Assessment and plan: As the weakness have gotten progressively worse with the recent year infection, he definitely benefit from inpatient replacement. Noted worsening frequency of falls more hallucinations despite treatment could be from urinary tract infection. (2) Acute UTI: Status: Acute Assessment and plan: Continue with IV antibiotics (3) Generalized weakness: Status: Acute Assessment and plan: Encouraged him to participate with the physical therapy sessions slowly.
== END 2024-11-24 16:58 | disposition skilled nursing facility (03) | DRG 690 ==
LOC: SERX 17:54 → SERHOLD 19:07 → S2NX 23:24 → S3NX 11-23 15:27
PROVIDERS: Admitting Provider Internal Medicine; Emergency Provider Family Medicine; Visit Provider Student in an Organized Health Care Education/Training Program
DX: N39.0 Urinary tract infection, site not specified (principal); G93.49 Other encephalopathy; F02.82 Dementia in other diseases classified elsewhere, unspecified severity, with psychotic disturbance; N17.9 Acute kidney failure, unspecified; Z16.29 Resistance to other single specified antibiotic; R53.1 Weakness; G20.A1 Parkinson's disease without dyskinesia, without mention of fluctuations; I10 Essential (primary) hypertension; N40.0 Benign prostatic hyperplasia without lower urinary tract symptoms; E78.5 Hyperlipidemia, unspecified; R29.703 NIHSS score 3; E04.2 Nontoxic multinodular goiter; F02.80 Dementia in other diseases classified elsewhere, unspecified severity, without behavioral disturbance, psychotic disturbance, mood disturbance, and anxiety; F17.210 Nicotine dependence, cigarettes, uncomplicated; B96.4 Proteus (mirabilis) (morganii) as the cause of diseases classified elsewhere; D64.9 Anemia, unspecified; I25.10 Atherosclerotic heart disease of native coronary artery without angina pectoris; I73.9 Peripheral vascular disease, unspecified; Z78.1 Physical restraint status; Z87.440 Personal history of urinary (tract) infections; Z91.81 History of falling; Z99.3 Dependence on wheelchair
CPT/HCPCS: 36415; 70450; 70496; 70498; 80053; 80061; 80307; 80320; 81001; 82607; 82746; 83036; 83735; 83880; 84100; 84439; 84443; 84484; 85025; 85610; 85730; 87077; 87086; 87186; 92526; 92610; 93005; 96365; 96372; 97162; 99284; A4649; J0696; J1644; J7030; Q9967; A9270; G0480

== ENCOUNTER 2025-03-13 16:56 | Inpatient (IN) | payer MEDICARE, MEDICAID, SELFPAY ==
[2025-03-13 17:01] VITALS: PULSE 75; RESP 16; O2SAT 98
[2025-03-13 17:09] VITALS: BP 160/74; PULSE 72; RESP 18; TEMP 36.9; O2SAT 99
--- NOTE | 2025-03-13 19:11 | EDNOTE_ITS ---
Altered Mental Status RME/HPI General Chief Complaint: Altered Mental Status Stated Complaint: AMS Time Seen by Provider: 03/13/25 17:50 Arrival date/time: 03/13/25 16:56 RME / HPI RME / HPI narrative: See MDM for Dr. Grimes's HPI documentation. Related Data Home Medications ?Medication ?Instructions ?Recorded ?Confirmed amantadine HCl 100 mg capsule 1 cap PO BID 10/02/21 carbidopa ER 50 mg-levodopa 200 mg 1 tab PO TID 11/22/24 tablet,extended release entacapone 200 mg tablet 1 tab PO Q12H 10/02/2111/22 finasteride 5 mg tablet 1 tab PO QDAY 10/02/2111/22 pramipexole 0.5 mg tablet 1 tab PO Q8H 10/02/21 trihexyphenidyl 5 mg tablet 2 mg PO BID 01/19/2211/22 lisinopril 40 mg tablet 40 mg PO QDAY 03/24/2411/22 meloxicam 15 mg tablet 15 mg PO QDAY 03/24/2411/22 pimavanserin 34 mg capsule 34 mg PO QDAY 03/24/2411/04 furosemide 20 mg tablet 20 mg PO QDAY PRN edema 11/0411/22/24 tamsulosin 0.4 mg capsule 0.4 mg PO QPM 11/22/2411/22 Previous Rx's ?Medication ?Instructions ?Recorded amlodipine 5 mg tablet 5 mg PO QDAY #30 tabs cefuroxime axetil 250 mg tablet 250 mg PO BID #8 tabs 11/24/24 Allergies Allergy/AdvReac Type Severity Reaction Status Date / Time No Known Allergies Allergy Verified 03/13/25 17:06 Review of Systems Review of Systems Systems Reviewed: All systems reviewed, normal except as documented Past Medical History Past Medical History NEUROLOGIC: Positive Neurological Disorders, Dementia and Parkinson's Disease CARDIAC: Positive Cardiac Disorders and Hypertension; Negative Congestive Heart Failure RESPIRATORY: Negative Chronic Obstructive Pulmonary Disease (COPD) GASTROINTESTINAL: Negative Gastrointestinal Disorders GENITOURINARY: Positive Benign Prostatic Hyperplasia; Negative Renal Disease MUSCULOSKELETAL: Positive Musculoskeletal Disorders ENDOCRINE: Negative Endocrine Disorders, Diabetes Mellitus Type 1 or Diabetes Mellitus Type 2 HEMATOLOGIC: Negative Blood Disorders OTHER HISTORY: Negative Cancer Social History SMOKING STATUS: Current every day smoker SECOND HAND EXPOSURE: No SUBSTANCE USE: does not use ED Exam Narrative Physical exam: See [facility] for Dr. Grimes's physical exam documentation. Course Quality Measures none Orders Category Date Time Status Bedside COVID-19 Antigen Test NOW Care 03/13/25 19:21 Active Bedside Influenza A&B Antigen Test NOW Care 03/13/25 19:21 Completed COVID-19 Screening Questionnaire NOW Care 03/13/25 22:41 Active Decision to Admit X1 Care 03/13/25 22:41 Active EKG (ED ONLY) *Do not use* NOW Care 03/13/25 19:22 Completed Saline [Insert IV] NOW Care 03/13/25 19:21 Active Straight [In and Out Catheter] X1 Care 03/13/25 19:[address] head/brain wo con Stat Exams 03/13/25 19:22 Completed EKG (ED Only) Stat Exams 03/13/25 19:22 Draft XR chest 1V portable Stat Exams 03/13/25 19:22 Completed BNP [B-Type Natriuretic Peptide] Stat Lab 03/13/25 19:47 Completed Bilirubin,Direct Stat Lab 03/13/25 19:47 Completed Blood Culture (Lab) Stat Lab 03/13/25 19:47 Received CBC Stat Lab 03/13/25 19:47 Completed CMP [Comprehensive Metabolic Panel] Stat Lab 03/13/25 19:47 Completed COVID-19 Antigen (In-House) Routine Lab 03/13/25 20:44 Completed CRP [C-Reactive Protein] Stat Lab 03/13/25 19:47 Completed ESR [Sed Rate (ESR)] Stat Lab 03/13/25 19:47 Completed FLU A&B [Influenza A & B Rapid Panel] Stat Lab 03/13/25 20:44 Completed Lactate (Lactic Acid) Stat Lab 03/13/25 19:47 Completed Lipase Stat Lab 03/13/25 19:47 Completed Magnesium Stat Lab 03/13/25 19:47 Completed Procalcitonin Stat Lab 03/13/25 19:47 Completed TSH [Thyroid Stimulating Hormone] Stat Lab 03/13/25 19:47 Completed Troponin I Stat Lab 03/13/25 19:47 Completed UA, C/S IF [Urinalysis, C/S if Indicated] Stat Lab 03/13/25 20:46 Completed Urine Culture Stat Lab 03/13/25 20:46 Received VBG [Venous Blood Gas] Stat Lab 03/13/25 19:47 Completed Ondansetron Inj [Zofran Inj] Med 03/13/25 19:21 Discontinued 4 mg IVP X1 ONE Ringers Lactated 1000 ml [Lactated Ringers] 1,000 ml Med 03/13/25 19:21 Discontinued IV 1,000 mls/hr cefTRIAXone/D5w 1gm IV premix [Rocephin/D5w 1gm IV Med 03/13/25 21:40 Discontinued premix] 1 g in 50 ml IV X1 Vital Signs Vital signs: Vital Signs Temperature 98.5 F 03/13/25 17:09 Pulse Rate 72 03/13/25 17:09 Respiratory Rate 18 03/13/25 17:09 Blood Pressure 160/74 H 03/13/25 17:09 Pulse Oximetry (%) 99 03/13/25 17:09 Oxygen Delivery Method Room Air 03/13/25 17:09 Altered Mental Status MDM Narrative MDM Narrative:: This section includes all my notes and documentations, including HPI, PE, and ED course. Jonathan Grimes MD HPI: 79-year-old male with history of Parkinson's BIBA from [facility] here with confusion and not behaving normally. Son states the patient had similar symptoms when he had UTI few months ago. No obvious fever. No other complaints. ROS: Unable to obtain from the patient due to current clinical condition. Physical Exam: General: Alert and oriented X 1. No acute distress when remaining still. Patient doesn't know his son who is present (abnormal per son). Eyes: Conjunctivae and lids clear. PERRL. EOMI. ENT: No nasal congestion. Neck: Supple. Heart: RRR. Lungs: No respiratory distress. Good air movement. No severe rhonchi, wheezing, rales. Abdomen: Soft and nontender. Normal bowel sounds. No distension. No rebound or guarding. Skin: Warm and dry. Neuro: Alert and oriented X 1. Cranial nerves II to XII grossly normal. No peripheral motor deficits. I reviewed EMS and residential notes. I reviewed all diagnostic test results. My interpretation of the EKG is sinus rhythm with nonspecific ST-T changes. My interpretation of the chest x-ray is NAD. My review of the CT head report is NAD. Blood tests unremarkable. UA remarkable for positive leukocyte esterase and 32 WBC. COVID/Influenza negative. At this point, diagnoses include: AMS (altered mental status) Urinary tract infection Treatment here included: IV fluid Rocephin 1 g IV Zofran 4 mg IV Patient remained stable. I discussed the case with our hospitalist. About the presentation and exam and diagnostics and treatments here. And need of further care in the hospital. Will accept the patient. Jonathan Grimes MD Patient data External records reviewed:: [facility] previous records (Per chart review, patient was admitted here on 11/21/24 for left-sided weakness.) Clinical information provided by:: patient Social determinants that could affect healthcare access:: housing (SNF resident) Patient has the following chronic illnesses:: Parkinson's disease, BPH, HTN, HLD How is presenting disease/condition affected by chronic disease/condition?: exacerbated by Evaluation data The following diagnostics were reviewed and interpreted by me:: lab results, radiology exam(s) and EKG tracing(s) (My interpretation of the EKG is: Sinus rhythm (66 bpm) with nonspecific ST-T changes. Jonathan Grimes MD) Lab and/or radiology exams considered but not ordered:: none Interpretation Summary: I reviewed all diagnostic test results. My interpretation of the EKG is sinus rhythm with nonspecific ST-T changes. My interpretation of the chest x-ray is NAD. My review of the CT head report is NAD. Blood tests unremarkable. UA remarkable for positive leukocyte esterase and 32 WBC. COVID/Influenza negative. Medications / Prescriptions Medications or Prescriptions considered but not ordered:: none Medication administrations:: Medication Administration History Acetaminophen (Acetaminophen 325 Mg Tablet) 650 mg PO Q6H PRN PRN Reason: Fever >101.5 Stop: 04/12/25 23:19 Amantadine HCl (Amantadine Hcl 100 Mg Capsule) 100 mg PO BID [facility] Stop: 03/21/25 08:59 Amlodipine Besylate (Amlodipine Besylate 5 Mg Tablet) 5 mg PO DAILY [facility] Stop: 04/13/25 08:59 Carbidopa/Levodopa (Carbidopa/Levodopa 25/100 Mg Tablet) 2 tab PO TID [facility] Stop: 04/13/25 05:59 Enoxaparin Sodium (Enoxaparin Sod Inj 40 Mg/0.4 Ml Syringe) 40 mg SC QDAY BRY Stop: 03/28/25 08:59 Ceftriaxone Sodium/Dextrose (Rocephin/D5w 1gm Iv Premix) 1 gm in 50 mls @ 100 mls/hr IV Q12HR BRY Stop: 03/21/25 08:59 Lactated Ringer's (Lactated Ringers) 1,000 mls @ 100 mls/hr IV .Q10H ONE Stop: 03/14/25 09:24 Last Admin: 03/13/25 23:50 Dose: 100 mls/hr Documented By: TAE Pramipexole Dihydrochloride (Pramipexole 0.25 Mg Tablet) 0.5 mg PO TID BRY Stop: 04/13/25 05:59 Tamsulosin HCl (Tamsulosin Hcl 0.4 Mg Capsule) 0.4 mg PO HS BRY Stop: 04/13/25 20:59 Discontinued Medications Lactated Ringer's (Lactated Ringers) 1,000 mls @ 1,000 mls/hr IV .Q1H ONE Stop: 03/13/25 20:20 Last Infusion: 03/13/25 21:04 Dose: Infused Documented By: Admin: 03/13/25 20:04 Dose: 1,000 mls/hr Documented By: TAE Ceftriaxone Sodium/Dextrose (Rocephin/D5w 1gm Iv Premix) 1 g in 50 mls @ 100 mls/hr IV X1 ONE Stop: 03/13/25 22:09 Last Infusion: 03/13/25 23:11 Dose: Infused Documented By: Admin: 03/13/25 22:41 Dose: 100 mls/hr Documented By: TAE Ondansetron HCl (Ondansetron Inj 2 Mg/Ml Inj 2 Ml) 4 mg IVP X1 ONE; Protocol Stop: 03/13/25 19:22 Last Admin: 03/13/25 20:04 Dose: 4 mg Documented By: TAE Treatment here FROM ME included: IV fluid Rocephin 1 g IV Zofran 4 mg IV Consultations Consultation(s) initiated? (list below): Yes Consultation #1 (Physician, Specialty, Details): I discussed the case with our hospitalist. About the presentation and exam and diagnostics and treatments here. And need of further care in the hospital. Will accept the patient. Diagnosis Differential diagnosis altered mental status: alcoholic intoxication, altered mental status, delirium, dementia, hypoglycemia, hyponatremia, subarachnoid hemorrhage and sepsis Most likely diagnosis given after review of the tests above:: AMS (altered mental status) Urinary tract infection Admission Indicated Admission indicated?: indicated Explain why admission is indicated or not indicated:: AMS (altered mental status) Urinary tract infection Admission Request Was there a request for admission?: Yes Admission Attestation Admission request attestation: I discussed the case with our hospitalist. About the presentation and exam and diagnostics and treatments here. And need of further care in the hospital. Will accept the patient. Disposition Plan Disposition Plan: Admit Discharge Plan Plan Patient Disposition: Admit Acute Care w/in Hospital Problem List Clinical Impression: AMS (altered mental status), Urinary tract infection
--- NOTE | 2025-03-13 19:22 | XR_ITS ---
Examination: CT brain head without contrast. 2-D sagittal coronal reconstructions Date and time of exam: March 13, 2025, 1954 hours INDICATIONS: Ground-level fall today with injury of the head, head pain CTDI: vol (mGy): 55.3 DLP: (mGycm): 1160 Technique: Multiple CT axial sections of the brain have been obtained, 5 mm slice thickness. Contrast has not been administered. 2-D sagittal, coronal reconstructions have been obtained Low dose protocols were performed. One or more of the following dose reduction techniques were used; automated exposure control, adjustment of the mA and/or KV according to patient size, use of iterative reconstruction technique. Findings: No significant ventricular enlargement. Intra-axial or extra-axial hemorrhage density is not seen. No mass effect or midline shift Basal cisterns are not remarkable. Fourth ventricle is midline. Cranial vault intact. Impression: Negative for acute hemorrhage, mass effect or midline shift
--- NOTE | 2025-03-13 19:22 | XR_ITS ---
EXAMINATION: AP chest single view TECHNIQUE: AP portable semiupright chest single view Date and time: March 13, 20252019 hours COMPARISON: August 04, 2023 INDICATIONS: Shortness of breath today Comparison: August 04, 2023 FINDINGS: Mild enlargement left ventricle Moderate elevation right hemidiaphragm No pneumonia or pulmonary edema Moderate osteopenia IMPRESSION: No pneumonia or pulmonary edema
--- NOTE | 2025-03-13 19:22 | EKG_ITS ---
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
[2025-03-13 19:57] LABS: Lactate (Lactic Acid) 0.8 mMol/L (0.4-2.0)
[2025-03-13 19:58] LABS: Base Excess, Venous 4 (-3-3); O2 Saturation, Venous 80 % (96-97); PCO2, Venous 45 mmHg (36-56); PO2, Venous 40 mmHg (15-58); pH, Venous 7.41 (7.33-7.66)
[2025-03-13 20:01] LABS: Basophils # (Auto) 0.1 Thou/mm3 (0.0-0.2); Basophils % (Auto) 1 % (0-2.5); Eosinophils # (Auto) 0.3 Thou/mm3 (0.0-0.5); Eosinophils % (Auto) 2 % (0-10); Hematocrit 36.5 % (41.0-53.0); Hemoglobin 12.2 g/dL (13.5-16.0); Immature Granulocytes Auto 0.03 Thou/mm3 (0.00-0.00); Lymphocytes # (Auto) 1.6 Thou/mm3 (1.0-4.8); Lymphocytes % (Auto) 15 % (10-50); Mean Corpuscular HGB Conc 33.4 g/dl (31.0-37.0); Mean Corpuscular Hemoglobin 30.2 pg (25.0-35.0); Mean Corpuscular Volume 90 fL (80-100); Monocytes # (Auto) 0.8 Thou/mm3 (0.0-0.8); Monocytes % (Auto) 8 % (0-12); Neutrophils # (Auto) 8.3 Thou/mm3 (1.8-7.7); Neutrophils % (Auto) 75 % (37-80); Nucleated Red Blood Cell # 0.00 Thou/mm3 (0.00-0.00); Nucleated Red Blood Cell % 0 /100 WBC (0); Platelet Count 231 Thou/mm3 (140-440); RDW Standard Deviation 42.8 fL (35.1-43.9); Red Blood Count 4.04 Miln/mm3 (4.50-5.90); White Blood Count 11.1 Thou/mm3 (3.8-10.6)
[2025-03-13] MEDS: ONDANSETRON INJ 2 MG/ML INJ 2 ML 4 MG IVP (20:04)
[2025-03-13] MEDS: RINGERS LACTATED 1000 ML 1,000 ML IV (20:04)
[2025-03-13 20:27] LABS: B-Type Natriuretic Peptide 62 pg/mL (0-100)
[2025-03-13 20:38] LABS: Sed Rate (ESR) 7 mm/hr (0-20)
[2025-03-13 20:50] LABS: Alanine Aminotransferase 8 U/L (10-49); Albumin, Serum 4.2 gm/dL (3.4-4.8); Albumin/Globulin Ratio 2.3 (1.2-2.2); Alkaline Phosphatase 162 U/L (46-116); Anion Gap 7 (7-16); Aspartate Amino Transferase 11 U/L (0-34); BUN/Creatinine Ratio 16 Ratio (12-20); Bilirubin,Direct 0.2 mg/dL (0.0-0.3); Bilirubin,Total 0.4 mg/dL (0.3-1.2); Blood Urea Nitrogen 16 mg/dL (9-23); C-Reactive Protein < 0.5 mg/dL (0.0-0.9); Calcium 9.0 mg/dL (8.3-10.6); Calcium (Corrected) 9.0 mg/dL (8.5-10.1); Carbon Dioxide 28.3 mMol/L (20.0-31.0); Chloride 112 mMol/L (98-107); Creatinine (Component) 1.0 mg/dL (0.6-1.3); Estimated Creatinine Clearance 83.3 mL/min (>60); Globulin 1.8 gm/dL (2.3-3.5); Glucose 95 mg/dL (74-106); Lipase 34 U/L (12-53); Magnesium 2.2 mg/dL (1.6-2.6); Osmolality,Calculated 293 (275-295); Potassium 3.9 mMol/L (3.4-5.1); Procalcitonin < 0.04 ng/ml (0.0-0.49); Sodium 147 mMol/L (136-145); Thyroid Stimulating Hormone 1.46 uIU/mL (0.55-4.78); Total Protein 6.0 gm/dL (5.7-8.2); Troponin I < 0.020 ng/mL (0.0-0.045); eGFR > 60 See Note
[2025-03-13 21:04] LABS: Collection Type, Urine Clean Catch
[2025-03-13 21:13] LABS: Amorphous Crystals,Urine Present (Absent); Bilirubin,Urine Negative (Negative); Blood,Urine Negative (Negative); Clarity,Urine Clear (Clear/Hazy); Color,Urine Yellow (Lt Yel-Yel); Glucose, Urine Negative (Negative); Ketones,Urine Negative (Negative); Leukocyte Esterase,Urine Positive (Negative); Nitrite,Urine Negative (Negative); PH,Urine 6.5 (5.0-7.0); Protein,Urine Trace (Neg - Trace); RBC,Urine 3 /hpf (0-3); Specific Gravity,Urine 1.021 (1.001-1.035); Squamous Epithelial Cell,Urine < 1 /hpf (0-5); Urobilinogen,Urine Negative mg/dL (0.0-1.0); WBC,Urine 32 /hpf (0-5)
[2025-03-13 21:30] LABS: Influenza A Ag Negative; Influenza B Ag Negative
[2025-03-13 21:31] LABS: Culture Indicated,Urine Yes
[2025-03-13 21:31] LABS: COVID-19 Antigen (In-House) Negative (Negative)
[2025-03-13] MEDS: cefTRIAXone/D5w 1gm IV premix 1 G/50 ML BAG IV (22:41)
--- NOTE | 2025-03-13 23:33 | ESHP_ITS ---
<Statement entered by Brandon Strong MD - 03/17/25 20:00> 79-year-old male with significant past medical history of Parkinson's disease, BPH, hypertension, hyperlipidemia, PAD was brought in from [facility] and a of febrile episode. Daughter is at the bedside, who reported that patient is at his baseline and has this on and off episodes from a while which is normal for him in view of advanced Parkinson's disease and psychosis. Also noted to have hallucinations, per daughter. Vitals at the time of admission are significant for blood pressure 160/74 mmHg. Labs are significant for WBC 11.1. Head CT did not show any new infarct, hemorrhage. Urinalysis is significant for 32 WBC. A bolus of fluid is given in the ED. Admitted in the hospital in view of UTI. Started on IV antibiotics based on the previous culture reports. I have personally seen and examined the patient, agree with residents assessment and plan Patient plan of care was discussed with the attending physician, Dr. Kayla Strong, PGY2 Documentation for date of: 03/13/25 HPI History of Present Illness History of present illness: HPI: 79-year-old male past medical history of Parkinson's BPH, hypertension, and hyperlipidemia brought in by ambulance from [facility] to the ED in the evening of 03/13/2025 for chief complaint of fever per the patient. Patient is a poor historian is only oriented to self. Most of the history was gathered from chart review and the patient's daughter at bedside who assisted in collecting history and reports that patient is not at his mental baseline. It was reported that the patient had increased confusion at the facility which prompted his visit to the ED. He was found to have 32 WBCs, amorphous crystals, and be leukocyte esterase positive on urinalysis. Patient denied dysuria, fever, chills, hematuria, or pyuria. Patient has had multiple UTIs in the past, and it has been reported that the patient has increased confusion when he has a UTI. Patient was admitted for acute encephalopathy secondary to UTI. ED Course: * Significant vitals on arrival: BP 160/74. Remainder of vitals within normal limits. * Significant labs: WBC 11.1, hemoglobin 12.2, hematocrit 36.5, VBG O2 sat 80%, sodium 147, chloride 112, alk phos 162. * Imaging:X-ray showed mild enlargement of the left ventricle, no pneumonia. Head CT was negative for acute hemorrhage or infarction. EKG showed a sinus rhythm with a rate of 66 and QTc 434. * Urine: WBC 32, amorphous crystals, leukocyte esterase positive * ED intervention: Patient received 1 L lactated Ringer's, 4 mg ondansetron, 1 g ceftriaxone. History: * Past medical history: As above in HPI * Surgical history: Lens replacement bilaterally, unspecified peripheral artery ballooning procedure in the lower extremities, unspecified prostate surgery 2 years ago. * Social history: Smokes 1 pack cigarettes per week, no alcohol or illicit drug use. Lives at [facility]. Allergies: * No known drug allergies Home Medications: (Pending Med Rec) * Amantadine 100 mg twice a day * Amlodipine 5 mg daily * Carbidopa levodopa 50/200 3 times a day * Cefuroxime 250 mg p.o. twice a day, 8 tablets * Entacapone 200 mg twice a day * Finasteride 5 mg nightly * Furosemide 20 mg daily as needed for edema * Lisinopril 40 mg daily * Meloxicam 15 mg daily * Pimavanserin 34 mg daily * Pramipexole 0.5 mg every 8 hours * Tamsulosin 0.4 mg nightly * Trihexyphenidyl 2 mg twice a day CODE STATUS: Full code Review of Systems Review of Systems Narrative Review of Systems: Review of Systems: * General: Denies fevers, chills. * HEENT: Denies headache, congestion, or sore throat. * Cardiac: Denies chest pain or palpitations. * Pulmonary: Endorsed shortness of breath the morning of presentation * GI: Denies nausea, vomiting, diarrhea, constipation, melena, or hematochezia. * : Denies dysuria, hematuria, frequency, or urgency. * MSK: Denies pain in the extremities, joints, or myalgias. Exam Vital Signs Temp Pulse Resp BP Pulse Ox O2 Del Method 98.5 F 72 18 160/74 H 99 Room Air 03/13/25 17:03/13/25 17:03/13/25 17:03/13/25 17:03/13/25 17:03/13/25 17:09 Narrative Exam General: Confabulatory speech. Awake and in no acute distress. Conversational and non-toxic appearing. Neurologic: GCS 14. Alert and oriented to self only, no gross neurological deficit, and patient able to move all 4 extremities. HEENT: Normocephalic, atraumatic, mucous membranes moist. Pupils reactive to light. Heart: Tachycardic, regular rhythm, normal S1 and S2, no murmurs. Lungs: Clear to auscultation bilaterally with no wheezing or crackles. Abdomen: Soft, nondistended, nontender, positive bowel sounds. No guarding or rebound tenderness. Extremities: Bilateral upper extremity hand tremor, Fahn Tremor Scale Grade 3 (1-2 cm). No edema. 2+ radial and dorsalis pedis pulses bilaterally. Skin: Warm. Dry. No rash or ecchymoses. Results: Labs 03/16/25 04:10 03/16/25 04:10 Labs: Short CBC 03/13/25 Range/Units 19:47 WBC 11.1 H (3.8-10.6) Thou/mm3 Hgb 12.2 L (13.5-16.0) g/dL Hct 36.5 L (41.0-53.0) % Plt Count 231 (140-440) Thou/mm3 BMP 03/13/25 19:47 Sodium 147 H Potassium 3.9 Chloride 112 H Carbon Dioxide 28.3 BUN 16 Creatinine 1.0 Glucose 95 Calcium 9.0 Cardiac Enzymes 03/13/25 Range/Units 19:47 Troponin I < 0.020 (0.0-0.045) ng/mL Liver Function 03/13/25 Range/Units 19:47 Total Bilirubin 0.4 (0.3-1.2) mg/dL Direct Bilirubin 0.2 (0.0-0.3) mg/dL AST 11 (0-34) U/L ALT 8 L (10-49) U/L Alkaline Phosphatase 162 H (46-116) U/L Albumin 4.2 (3.4-4.8) gm/dL Urine 03/13/25 Range/Units 20:46 Urine Color Yellow (Lt Yel-Yel) Urine Clarity Clear (Clear/Hazy) Urine pH 6.5 (5.0-7.0) Ur Specific [place] 1.021 (1.001-1.035) Urine Protein Trace (Neg - Trace) Urine Glucose (UA) Negative (Negative) ABG Interpretation ABG results: 03/13/25 19:47 VBG pH 7.41 VBG pCO2 45 VBG pO2 40 VBG Base Excess 4 H Quality Measures Quality Measures VTE prophylaxis Advance care planning discussed with:: patient and child Medications Home Medications and Allergies Home Medications ?Medication ?Instructions ?Recorded ?Confirmed ?Type amantadine HCl 100 mg capsule 1 cap PO BID 10/02/21 History carbidopa ER 50 mg-levodopa 200 mg 1 tab PO TID 03/14/25 History tablet,extended release entacapone 200 mg tablet 1 tab PO Q12H 10/02/2103/14 History finasteride 5 mg tablet 1 tab PO QDAY 10/02/2103/14 History pramipexole 0.5 mg tablet 1 tab PO Q8H 10/02/21 History lisinopril 40 mg tablet 40 mg PO QDAY 03/24/2403/14 History pimavanserin 34 mg capsule 34 mg PO QDAY 03/24/2403/05 History furosemide 20 mg tablet 20 mg PO QDAY PRN edema 11/0403/14/25 History tamsulosin 0.4 mg capsule 0.4 mg PO QPM 11/22/2403/14 History atorvastatin 40 mg tablet 40 mg PO DAILY 03/14/2503/05 History trihexyphenidyl 2 mg tablet 2 mg PO BID 03/14/2503/14 History Allergies Allergy/AdvReac Type Severity Reaction Status Date / Time No Known Allergies Allergy Verified 03/13/25 17:06 Visit Medications Acetaminophen (Acetaminophen 325 Mg Tablet) 650 mg PO Q6H PRN PRN Reason: Fever >101.5 Stop: 04/12/25 23:19 Amantadine HCl (Amantadine Hcl 100 Mg Capsule) 100 mg PO BID [facility] Stop: 03/21/25 08:59 Amlodipine Besylate (Amlodipine Besylate 5 Mg Tablet) 5 mg PO DAILY [facility] Stop: 04/13/25 08:59 Carbidopa/Levodopa (Carbidopa/Levodopa 25/100 Mg Tablet) 2 tab PO TID [facility] Stop: 04/13/25 05:59 Enoxaparin Sodium (Enoxaparin Sod Inj 40 Mg/0.4 Ml Syringe) 40 mg SC QDAY BRY Stop: 03/28/25 08:59 Ceftriaxone Sodium/Dextrose (Rocephin/D5w 1gm Iv Premix) 1 gm in 50 mls @ 100 mls/hr IV Q12HR BRY Stop: 03/20/25 23:22 Lactated Ringer's (Lactated Ringers) 1,000 mls @ 100 mls/hr IV .Q10H ONE Stop: 03/14/25 09:24 Pramipexole Dihydrochloride (Pramipexole 0.25 Mg Tablet) 0.5 mg PO TID BRY Stop: 04/13/25 05:59 Tamsulosin HCl (Tamsulosin Hcl 0.4 Mg Capsule) 0.4 mg PO HS BRY Stop: 04/13/25 20:59 Discontinued Medications Lactated Ringer's (Lactated Ringers) 1,000 mls @ 1,000 mls/hr IV .Q1H ONE Stop: 03/13/25 20:20 Last Infusion: 03/13/25 21:04 Dose: Infused Ceftriaxone Sodium/Dextrose (Rocephin/D5w 1gm Iv Premix) 1 g in 50 mls @ 100 mls/hr IV X1 ONE Stop: 03/13/25 22:09 Last Admin: 03/13/25 22:41 Dose: 100 mls/hr Ondansetron HCl (Ondansetron Inj 2 Mg/Ml Inj 2 Ml) 4 mg IVP X1 ONE; Protocol Stop: 03/13/25 19:22 Last Admin: 03/13/25 20:04 Dose: 4 mg Assessment & Plan Plan Summary: 79-year-old male past medical history of Parkinson's BPH, hypertension, and hyperlipidemia brought in by ambulance from [facility] to the ED in the evening of 03/13/2025 for chief complaint of fever per the patient. Patient is a poor historian is only oriented to self. He was found to have 32 WBCs, amorphous crystals, and be leukocyte esterase positive on urinalysis. Patient was admitted for acute encephalopathy secondary to UTI. #Acute encephalopathy secondary to #UTI #Leukocytosis * Patient had 32 WBCs, amorphous crystals, and be leukocyte esterase positive on urinalysis * WBC 11.1, likely reflective of infection versus acute phase reaction * It was reported that the patient expressed increased confusion at the facility, however per the patient's daughter at bedside he was at his baseline, only alert and oriented to self with confabulatory speech * Patient denied dysuria, pyuria, hematuria, fevers or chills * Patient had an unspecified prostate surgery 2 years ago, otherwise difficult to defend why the patient continues to experience repeated UTIs, patient's daughter mentioned that he wears a diaper but takes it off to urinate Plan: * Ceftriaxone 1 g daily * Urine cultures ordered * Blood cultures ordered #BPH * Per chart review history * Patient had an unspecified prostate surgery 2 years ago Plan: * Tamsulosin 0.4 mg nightly #Parkinson's * Known patient history * Patient has a bilateral upper extremity hand tremor, Fahn Tremor Scale Grade 3 (1-2 cm) Plan: * Amantadine 100 mg p.o. twice daily * Carbidopa levodopa 25/102 tablets p.o. 3 times daily * Entacapone 200 mL EQ p.o. twice daily * Nuplazid (pimavanserin) 34 mg daily * Pramipexole 0.5 mg 3 times a day * Trihexyphenidyl 5 mg twice a day #Hypernatremia #Hyperchloremia * Patient presented with a sodium of 147, chloride 112 * Likely represents dehydration Plan: * Patient received 1 L LR in the ED * LR maintenance at 100 mL/h #Hypertension * Patient presented with stage II hypertension 160/74 Plan: * Amlodipine 5 mg daily * Pending med rec, consider restarting home lisinopril 40 mg daily #Hyperlipidemia * Per chart review * Lipid panel negative back in November * Patient does not appear to be taking statin Plan: * Pending med rec * No direct intervention at this time #Acute normocytic anemia * Patient presented with hemoglobin 12.2, hematocrit 36.5, MCV 90 * No evidence of active bleed * Causes may include infection versus nutritional deficiency Plan: * Will watch H&H with daily labs Hospital Maintenance: DVT ppx: Lovenox 40 mg subcu daily Diet: Pending swallow screen IV lines: Peripheral IVs Code status: Full code Dispo: Admitted to [facility] for IV ceftriaxone treatment of his UTI. Restarted Parkinson's medications. IV fluid maintenance. Started amlodipine for hypertension. Patient was seen and discussed with my attending physician Dr. Kayla GOLDMAN and my senior resident Dr. Ligia GOLDMAN PGY-2. Marvel Valdez DO PGY-1. Attending Provider Attestation/Addendum After examination of the patient and review of the clinical data I feel that this patient needs admission to the hospital for further treatment/evaluation. Plan of care discussed with patient and is in agreement. I Leo Garza MD, attest that I was physically present for carroll portions of evaluation, and examined patient, labs and imagings and plan of care were discussed with IM residents team, and I agree with the findings and plans documented above.
--- NOTE | 2025-03-13 23:33 | PD.RESHP ---
Documentation for date of: 03/13/25 [facility] History of Present Illness History of present illness: HPI: 79-year-old male past medical history of Parkinson's BPH, hypertension, and hyperlipidemia brought in by ambulance from [facility] to the ED in the evening of 03/13/2025 for chief complaint of fever per the patient. Patient is a poor historian is only oriented to self. Most of the history was gathered from chart review and the patient's daughter at bedside who assisted in collecting history and reports that patient is not at his mental baseline. It was reported that the patient had increased confusion at the facility which prompted his visit to the ED. He was found to have 32 WBCs, amorphous crystals, and be leukocyte esterase positive on urinalysis. Patient denied dysuria, fever, chills, hematuria, or pyuria. Patient has had multiple UTIs in the past, and it has been reported that the patient has increased confusion when he has a UTI. Patient was admitted for acute encephalopathy secondary to UTI. ED Course: Significant vitals on arrival: BP 160/74. Remainder of vitals within normal limits. Significant labs: WBC 11.1, hemoglobin 12.2, hematocrit 36.5, VBG O2 sat 80%, sodium 147, chloride 112, alk phos 162. Imaging:X-ray showed mild enlargement of the left ventricle, no pneumonia. Head CT was negative for acute hemorrhage or infarction. EKG showed a sinus rhythm with a rate of 66 and QTc 434. Urine: WBC 32, amorphous crystals, leukocyte esterase positive ED intervention: Patient received 1 L lactated Ringer's, 4 mg ondansetron, 1 g ceftriaxone. History: Past medical history: As above in HPI Surgical history: Lens replacement bilaterally, unspecified peripheral artery ballooning procedure in the lower extremities, unspecified prostate surgery 2 years ago. Social history: Smokes 1 pack cigarettes per week, no alcohol or illicit drug use. Lives at [facility]. Allergies: No known drug allergies Home Medications: (Pending Med Rec) Amantadine 100 mg twice a day Amlodipine 5 mg daily Carbidopa levodopa 50/200 3 times a day Cefuroxime 250 mg p.o. twice a day, 8 tablets Entacapone 200 mg twice a day Finasteride 5 mg nightly Furosemide 20 mg daily as needed for edema Lisinopril 40 mg daily Meloxicam 15 mg daily Pimavanserin 34 mg daily Pramipexole 0.5 mg every 8 hours Tamsulosin 0.4 mg nightly Trihexyphenidyl 2 mg twice a day CODE STATUS: Full code Review of Systems Review of Systems Narrative Review of Systems: Review of Systems: General: Denies fevers, chills. HEENT: Denies headache, congestion, or sore throat. Cardiac: Denies chest pain or palpitations. Pulmonary: Endorsed shortness of breath the morning of presentation GI: Denies nausea, vomiting, diarrhea, constipation, melena, or hematochezia. : Denies dysuria, hematuria, frequency, or urgency. MSK: Denies pain in the extremities, joints, or myalgias. Exam Vital Signs Temp Pulse Resp BP Pulse Ox O2 Del Method 98.5 F 72 18 160/74 H 99 Room Air 03/13/25 17:03/13/25 17:09 03/13/25 17:03/13/25 17:03/13/25 17:03/13/25 17:09 Narrative Exam General: Confabulatory speech. Awake and in no acute distress. Conversational and non-toxic appearing. Neurologic: GCS 14. Alert and oriented to self only, no gross neurological deficit, and patient able to move all 4 extremities. HEENT: Normocephalic, atraumatic, mucous membranes moist. Pupils reactive to light. Heart: Tachycardic, regular rhythm, normal S1 and S2, no murmurs. Lungs: Clear to auscultation bilaterally with no wheezing or crackles. Abdomen: Soft, nondistended, nontender, positive bowel sounds. No guarding or rebound tenderness. Extremities: Bilateral upper extremity hand tremor, Fahn Tremor Scale Grade 3 (1-2 cm). No edema. 2+ radial and dorsalis pedis pulses bilaterally. Skin: Warm. Dry. No rash or ecchymoses. Results: Labs 03/16/25 04:10 03/16/25 04:10 Labs: Short CBC 03/13/25 Range/Units 19:47 WBC 11.1 H (3.8-10.6) Thou/mm3 Hgb 12.2 L (13.5-16.0) g/dL Hct 36.5 L (41.0-53.0) % Plt Count 231 (140-440) Thou/mm3 BMP 03/13/25 19:47 Sodium 147 H Potassium 3.9 Chloride 112 H Carbon Dioxide 28.3 BUN 16 Creatinine 1.0 Glucose 95 Calcium 9.0 Cardiac Enzymes 03/13/25 Range/Units 19:47 Troponin I < 0.020 (0.0-0.045) ng/mL Liver Function 03/13/25 Range/Units 19:47 Total Bilirubin 0.4 (0.3-1.2) mg/dL Direct Bilirubin 0.2 (0.0-0.3) mg/dL AST 11 (0-34) U/L ALT 8 L (10-49) U/L Alkaline Phosphatase 162 H (46-116) U/L Albumin 4.2 (3.4-4.8) gm/dL Urine 03/13/25 Range/Units 20:46 Urine Color Yellow (Lt Yel-Yel) Urine Clarity Clear (Clear/Hazy) Urine pH 6.5 (5.0-7.0) Ur Specific [place] 1.021 (1.001-1.035) Urine Protein Trace (Neg - Trace) Urine Glucose (UA) Negative (Negative) ABG Interpretation ABG results: 03/13/25 19:47 VBG pH 7.41 VBG pCO2 45 VBG pO2 40 VBG Base Excess 4 H Quality Measures Quality Measures VTE prophylaxis Advance care planning discussed with:: patient and child Medications Home Medications and Allergies Home Medications ?Medication ?Instructions ?Recorded ?Confirmed ?Type amantadine HCl 100 mg capsule 1 cap PO BID 10/02/21 03/14/25 History carbidopa ER 50 mg-levodopa 200 mg 1 tab PO TID 10/02/21 03/14/25 History tablet,extended release entacapone 200 mg tablet 1 tab PO Q12H 10/02/21 03/14/25 History finasteride 5 mg tablet 1 tab PO QDAY 10/02/21 03/14/25 History pramipexole 0.5 mg tablet 1 tab PO Q8H 10/02/21 03/14/25 History lisinopril 40 mg tablet 40 mg PO QDAY 03/24/24 03/14/25 History pimavanserin 34 mg capsule 34 mg PO QDAY 03/24/24 03/14/25 History furosemide 20 mg tablet 20 mg PO QDAY PRN edema 11/22/24 03/14/25 History tamsulosin 0.4 mg capsule 0.4 mg PO QPM 11/22/24 03/14/25 History atorvastatin 40 mg tablet 40 mg PO DAILY 03/14/25 03/14/25 History trihexyphenidyl 2 mg tablet 2 mg PO BID 03/14/25 03/14/25 History Allergies Allergy/AdvReac Type Severity Reaction Status Date / Time No Known Allergies Allergy Verified 03/13/25 17:06 Visit Medications Acetaminophen (Acetaminophen 325 Mg Tablet) 650 mg PO Q6H PRN PRN Reason: Fever >101.5 Stop: 04/12/25 23:19 Amantadine HCl (Amantadine Hcl 100 Mg Capsule) 100 mg PO BID BRY Stop: 03/21/25 08:59 Amlodipine Besylate (Amlodipine Besylate 5 Mg Tablet) 5 mg PO DAILY BRY Stop: 04/13/25 08:59 Carbidopa/Levodopa (Carbidopa/Levodopa 25/100 Mg Tablet) 2 tab PO TID BRY Stop: 04/13/25 05:59 Enoxaparin Sodium (Enoxaparin Sod Inj 40 Mg/0.4 Ml Syringe) 40 mg SC QDAY BRY Stop: 03/28/25 08:59 Ceftriaxone Sodium/Dextrose (Rocephin/D5w 1gm Iv Premix) 1 gm in 50 mls @ 100 mls/hr IV Q12HR BRY Stop: 03/20/25 23:22 Lactated Ringer's (Lactated Ringers) 1,000 mls @ 100 mls/hr IV .Q10H ONE Stop: 03/14/25 09:24 Pramipexole Dihydrochloride (Pramipexole 0.25 Mg Tablet) 0.5 mg PO TID BRY Stop: 04/13/25 05:59 Tamsulosin HCl (Tamsulosin Hcl 0.4 Mg Capsule) 0.4 mg PO HS BRY Stop: 04/13/25 20:59 Discontinued Medications Lactated Ringer's (Lactated Ringers) 1,000 mls @ 1,000 mls/hr IV .Q1H ONE Stop: 03/13/25 20:20 Last Infusion: 03/13/25 21:04 Dose: Infused Ceftriaxone Sodium/Dextrose (Rocephin/D5w 1gm Iv Premix) 1 g in 50 mls @ 100 mls/hr IV X1 ONE Stop: 03/13/25 22:09 Last Admin: 03/13/25 22:41 Dose: 100 mls/hr Ondansetron HCl (Ondansetron Inj 2 Mg/Ml Inj 2 Ml) 4 mg IVP X1 ONE; Protocol Stop: 03/13/25 19:22 Last Admin: 03/13/25 20:04 Dose: 4 mg Assessment & Plan Plan Summary: 79-year-old male past medical history of Parkinson's BPH, hypertension, and hyperlipidemia brought in by ambulance from [facility] to the ED in the evening of 03/13/2025 for chief complaint of fever per the patient. Patient is a poor historian is only oriented to self. He was found to have 32 WBCs, amorphous crystals, and be leukocyte esterase positive on urinalysis. Patient was admitted for acute encephalopathy secondary to UTI. #Acute encephalopathy secondary to #UTI #Leukocytosis Patient had 32 WBCs, amorphous crystals, and be leukocyte esterase positive on urinalysis WBC 11.1, likely reflective of infection versus acute phase reaction It was reported that the patient expressed increased confusion at the facility, however per the patient's daughter at bedside he was at his baseline, only alert and oriented to self with confabulatory speech Patient denied dysuria, pyuria, hematuria, fevers or chills Patient had an unspecified prostate surgery 2 years ago, otherwise difficult to defend why the patient continues to experience repeated UTIs, patient's daughter mentioned that he wears a diaper but takes it off to urinate Plan: Ceftriaxone 1 g daily Urine cultures ordered Blood cultures ordered #BPH Per chart review history Patient had an unspecified prostate surgery 2 years ago Plan: Tamsulosin 0.4 mg nightly #Parkinson's Known patient history Patient has a bilateral upper extremity hand tremor, Fahn Tremor Scale Grade 3 (1-2 cm) Plan: Amantadine 100 mg p.o. twice daily Carbidopa levodopa 25/102 tablets p.o. 3 times daily Entacapone 200 mL EQ p.o. twice daily Nuplazid (pimavanserin) 34 mg daily Pramipexole 0.5 mg 3 times a day Trihexyphenidyl 5 mg twice a day #Hypernatremia #Hyperchloremia Patient presented with a sodium of 147, chloride 112 Likely represents dehydration Plan: Patient received 1 L LR in the ED LR maintenance at 100 mL/h #Hypertension Patient presented with stage II hypertension 160/74 Plan: Amlodipine 5 mg daily Pending med rec, consider restarting home lisinopril 40 mg daily #Hyperlipidemia Per chart review Lipid panel negative back in November Patient does not appear to be taking statin Plan: Pending med rec No direct intervention at this time #Acute normocytic anemia Patient presented with hemoglobin 12.2, hematocrit 36.5, MCV 90 No evidence of active bleed Causes may include infection versus nutritional deficiency Plan: Will watch H&H with daily labs Hospital Maintenance: DVT ppx: Lovenox 40 mg subcu daily Diet: Pending swallow screen IV lines: Peripheral IVs Code status: Full code Dispo: Admitted to [facility] for IV ceftriaxone treatment of his UTI. Restarted Parkinson's medications. IV fluid maintenance. Started amlodipine for hypertension. Patient was seen and discussed with my attending physician Dr. Kayla GOLDMAN and my senior resident Dr. Ligia GOLDMAN PGY-2. Marvel Valdez DO PGY-1. Attending Provider Attestation/Addendum After examination of the patient and review of the clinical data I feel that this patient needs admission to the hospital for further treatment/evaluation. Plan of care discussed with patient and is in agreement. I Leo Garza MD, attest that I was physically present for carroll portions of evaluation, and examined patient, labs and imagings and plan of care were discussed with IM residents team, and I agree with the findings and plans documented above.
[2025-03-13 23:49] VITALS: PULSE 108; RESP 18; O2SAT 99
[2025-03-13] MEDS: RINGERS LACTATED 1000 ML 1,000 ML 100 ML IV (23:50)
[2025-03-14] VITALS (8 sets, daily range): BP systolic 113–153; BP diastolic 64–88; PULSE 61–82; RESP 18–20; TEMP 36.2–36.6; O2SAT 96–98; BMI 28.2
[2025-03-14] MEDS: cefTRIAXone/D5w 1gm IV premix 1 GM/50 ML BAG IV (02:50)
[2025-03-14 06:14] LABS: Basophils # (Auto) 0.1 Thou/mm3 (0.0-0.2); Basophils % (Auto) 1 % (0-2.5); Eosinophils # (Auto) 0.4 Thou/mm3 (0.0-0.5); Eosinophils % (Auto) 3 % (0-10); Hematocrit 37.1 % (41.0-53.0); Hemoglobin 12.3 g/dL (13.5-16.0); Immature Granulocytes Auto 0.02 Thou/mm3 (0.00-0.00); Lymphocytes # (Auto) 2.1 Thou/mm3 (1.0-4.8); Lymphocytes % (Auto) 18 % (10-50); Mean Corpuscular HGB Conc 33.2 g/dl (31.0-37.0); Mean Corpuscular Hemoglobin 30.1 pg (25.0-35.0); Mean Corpuscular Volume 91 fL (80-100); Monocytes # (Auto) 0.9 Thou/mm3 (0.0-0.8); Monocytes % (Auto) 8 % (0-12); Neutrophils # (Auto) 8.0 Thou/mm3 (1.8-7.7); Neutrophils % (Auto) 70 % (37-80); Nucleated Red Blood Cell # 0.00 Thou/mm3 (0.00-0.00); Nucleated Red Blood Cell % 0 /100 WBC (0); Platelet Count 255 Thou/mm3 (140-440); RDW Standard Deviation 43.0 fL (35.1-43.9); Red Blood Count 4.08 Miln/mm3 (4.50-5.90); White Blood Count 11.5 Thou/mm3 (3.8-10.6)
[2025-03-14 06:41] LABS: Alanine Aminotransferase 11 U/L (10-49); Albumin, Serum 4.0 gm/dL (3.4-4.8); Albumin/Globulin Ratio 2.1 (1.2-2.2); Alkaline Phosphatase 157 U/L (46-116); Anion Gap 7 (7-16); Aspartate Amino Transferase 11 U/L (0-34); BUN/Creatinine Ratio 15 Ratio (12-20); Bilirubin,Total 0.3 mg/dL (0.3-1.2); Blood Urea Nitrogen 15 mg/dL (9-23); Calcium 8.8 mg/dL (8.3-10.6); Calcium (Corrected) 8.8 mg/dL (8.5-10.1); Carbon Dioxide 28.8 mMol/L (20.0-31.0); Chloride 113 mMol/L (98-107); Creatinine (Component) 1.0 mg/dL (0.6-1.3); Estimated Creatinine Clearance 69.5 mL/min (>60); Globulin 1.9 gm/dL (2.3-3.5); Glucose 109 mg/dL (74-106); Magnesium 2.0 mg/dL (1.6-2.6); Osmolality,Calculated 297 (275-295); Potassium 4.1 mMol/L (3.4-5.1); Sodium 149 mMol/L (136-145); Total Protein 5.9 gm/dL (5.7-8.2); eGFR > 60 See Note
[2025-03-14 08:34] LABS: Phosphorous 3.1 mg/dL (2.4-5.1)
--- NOTE | 2025-03-14 08:42 | ESPR_ITS ---
<Statement entered by Kemar Weeks MD - 03/14/25 18:40> I saw and examined patient personally and supervised PGY 1 resident, Dr. Gomez with formulating a management plan. I agree with the documentation with the exceptions as listed below. Patient was admitted for acute metabolic encephalopathy secondary to recurrent UTI. Patient says that he has history of recurrent UTIs since last year when he had procedure done on his prostate. He cannot recall which procedure was done but he follows with Dr. Rodriguez in [place]. On ceftriaxone 1 g IV daily for UTI, urine and blood cultures pending. Increased tamsulosin to 0.4 mg p.o. twice daily ordered bladder scans every shift to assess for urinary retention and incomplete emptying. Recommend patient to follow-up with urology as outpatient for urodynamic testing and assessment for possible TURP. Plan of care discussed with Attending Dr. Todd Weeks MD PGY 2 Disclaimer: This note was dictated by speech recognition. Minor errors in brokerage office manager may be present due to voice recognition software. Documentation for date of: 03/14/25 Subjective Subjective Interval history: Patient seen and examined at bedside; no acute events overnight. Patient still A&Ox1. Sodium was 149 on morning labs, gave D5W. Repeat PM sodium 145. UA shows WBC 32. Exam Vital Signs Temp Pulse Resp BP Pulse Ox O2 Del Method 97.2 F 72 18 151/88 H 98 Room Air 03/14/25 07:23 03/14/25 07:23 03/14/25 07:23 03/14/25 07:23 03/14/25 07:23 03/14/25 07:23 Narrative Exam General: A/O x1, no acute distress, well-nourished, well-developed Eyes: PERRL, EOMI. Anicteric, vision grossly intact. Ears: No ear pain, no ear discharge, Hearing grossly intact. Nose: No nasal discharge. Mouth/Throat: Moist mucous membranes, no redness, no lesions. Neck: Neck supple, non-tender, no cervical lymphadenopathy. Lungs: Clear PERLA to auscultation and percussion, No accessory muscle use. Cardio: Normal S1/S2, regular rhythm, no murmurs, no JVD or carotid bruits. Abdomen: Soft, non-tender, no palpable masses, peristalsis present, no guarding or rebound. Extremities: Symmetrical, no significant deformities, no peripheral edema , non-tender, peripheral pulses present. Skin: No rashes, no lesions, warm to touch. Neuro: No focal neurological deficits. Psych: Cooperative, appropriate mood and effect. Objective Labs 03/15/25 04:40 03/15/25 04:40 Labs: Laboratory Results - last 24 hr 03/13/25 03/13/25 03/13/25 19:47 20:44 20:46 WBC 11.1 H RBC 4.04 L Hgb 12.2 L Hct 36.5 L MCV 90 MCH 30.2 MCHC 33.4 RDW Std Deviation 42.8 Plt Count 231 Neut % (Auto) 75 Lymph % (Auto) 15 [place] % (Auto) 8 Eos % (Auto) 2 Baso % (Auto) 1 Neut # (Auto) 8.3 H Lymph # (Auto) 1.6 [place] # (Auto) 0.8 Eos # (Auto) 0.3 Baso # (Auto) 0.1 Immature Gran # (Auto) 0.03 H Absolute Nucleated RBC 0.00 Immature Gran % 0 Nucleated RBC % 0 ESR 7 VBG pH 7.41 VBG pCO2 45 VBG pO2 40 VBG O2 Sat (Milana) 80 L VBG Base Excess 4 H Sodium 147 H Potassium 3.9 Chloride 112 H Carbon Dioxide 28.3 Anion Gap 7 BUN 16 Creatinine 1.0 Estim Creat Clear Calc 83.3 eGFR > 60 BUN/Creatinine Ratio 16 Glucose 95 Calculated Osmolality 293 Lactic Acid 0.8 Calcium 9.0 Corrected Calcium 9.0 Phosphorus Magnesium 2.2 Total Bilirubin 0.4 Direct Bilirubin 0.2 AST 11 ALT 8 L Alkaline Phosphatase 162 H Troponin I < 0.020 C-Reactive Prot, Quant < 0.5 B-Natriuretic Peptide 62 Total Protein 6.0 Albumin 4.2 Globulin 1.8 L Albumin/Globulin Ratio 2.3 H Lipase 34 Procalcitonin < 0.04 TSH 1.46 Ur Collection Type Clean Catch Urine Color Yellow Urine Clarity Clear Urine pH 6.5 Ur Specific Peak 1.021 Urine Protein Trace Urine Glucose (UA) Negative Urine Ketones Negative Urine Blood Negative Urine Nitrite Negative Urine Bilirubin Negative Urine Urobilinogen (Auto) Negative Ur Leukocyte Esterase Positive Urine RBC 3 Urine WBC 32 H Ur Squamous Epith Cells < 1 Amorphous Crystals Present A Urine Bacteria None Ur Culture Indicated? Yes Influenza A (Rapid) Negative Influenza B (Rapid) Negative SARS-CoV-2 Ag (Rapid) Negative 03/14/25 05:05 WBC 11.5 H RBC 4.08 L Hgb 12.3 L Hct 37.1 L MCV 91 MCH 30.1 MCHC 33.2 RDW Std Deviation 43.0 Plt Count 255 Neut % (Auto) 70 Lymph % (Auto) 18 [place] % (Auto) 8 Eos % (Auto) 3 Baso % (Auto) 1 Neut # (Auto) 8.0 H Lymph # (Auto) 2.1 [place] # (Auto) 0.9 H Eos # (Auto) 0.4 Baso # (Auto) 0.1 Immature Gran # (Auto) 0.02 H Absolute Nucleated RBC 0.00 Immature Gran % 0 Nucleated RBC % 0 ESR VBG pH VBG pCO2 VBG pO2 VBG O2 Sat (Milana) VBG Base Excess Sodium 149 H Potassium 4.1 Chloride 113 H Carbon Dioxide 28.8 Anion Gap 7 BUN 15 Creatinine 1.0 Estim Creat Clear Calc 69.5 eGFR > 60 BUN/Creatinine Ratio 15 Glucose 109 H Calculated Osmolality 297 H Lactic Acid Calcium 8.8 Corrected Calcium 8.8 Phosphorus 3.1 Magnesium 2.0 Total Bilirubin 0.3 Direct Bilirubin AST 11 ALT 11 Alkaline Phosphatase 157 H Troponin I C-Reactive Prot, Quant B-Natriuretic Peptide Total Protein 5.9 Albumin 4.0 Globulin 1.9 L Albumin/Globulin Ratio 2.1 Lipase Procalcitonin TSH Ur Collection Type Urine Color Urine Clarity Urine pH Ur Specific Peak Urine Protein Urine Glucose (UA) Urine Ketones Urine Blood Urine Nitrite Urine Bilirubin Urine Urobilinogen (Auto) Ur Leukocyte Esterase Urine RBC Urine WBC Ur Squamous Epith Cells Amorphous Crystals Urine Bacteria Ur Culture Indicated? Influenza A (Rapid) Influenza B (Rapid) SARS-CoV-2 Ag (Rapid) ABG Interpretation ABG results: 03/13/25 19:47 VBG pH 7.41 VBG pCO2 45 VBG pO2 40 VBG Base Excess 4 H Quality Measures Quality Measures none Advance care planning discussed with:: other Assessment & Plan Assessment Current Active Medications: Generic Name Dose Route Start Last Admin Trade Name Freq PRN Reason Stop Dose Admin Acetaminophen 650 mg 03/13/25 23:20 Acetaminophen 325 Mg Tablet PO 04/12/25 23:19 Q6H PRN Fever >101.5 Amantadine HCl 100 mg 03/14/25 09:00 Amantadine Hcl 100 Mg Capsule PO 03/21/25 08:59 BID [facility] Amlodipine Besylate 5 mg 03/14/25 09:00 Amlodipine Besylate 5 Mg Tablet PO 04/13/25 08:59 DAILY [facility] Carbidopa/Levodopa 2 tab 03/14/25 06:00 03/14/25 05:14 Carbidopa/Levodopa 25/100 Mg Tablet PO 04/13/25 05:59 Not Given TID [facility] Enoxaparin Sodium 40 mg 03/14/25 09:00 Enoxaparin Sod Inj 40 Mg/0.4 Ml Syringe SC 03/28/25 08:59 QDAY [facility] Entacapone 200 mg 03/14/25 09:00 Entacapone 200 Mg Tablet (Non-Formulary) PO 04/13/25 08:59 BID [facility] Finasteride 5 mg 03/14/25 09:00 Finasteride 5 Mg Tablet PO 04/13/25 08:59 QDAY [facility] Lactated Ringer's 1,000 mls @ 100 mls/hr 03/13/25 23:25 03/13/25 23:50 Lactated Ringers IV 03/14/25 09:24 100 mls/hr .Q10H ONE Administration Ceftriaxone Sodium/Dextrose 1 gm in 50 mls @ 100 mls/hr 03/14/25 02:00 03/14/25 02:50 Rocephin/D5w 1gm Iv Premix IV 03/21/25 01:59 100 mls/hr Q24H BRY Administration Non-Formulary Medication 5 mg 03/14/25 09:00 Trihexyphenidyl PO 04/13/25 08:59 BID [facility] Non-Formulary Medication 34 mg 03/14/25 09:00 Nuplazid PO 04/13/25 08:59 QDAY [facility] Pramipexole Dihydrochloride 0.5 mg 03/14/25 06:00 03/14/25 05:14 Pramipexole 0.25 Mg Tablet PO 04/13/25 05:59 Not Given TID [facility] Tamsulosin HCl 0.4 mg 03/14/25 21:00 Tamsulosin Hcl 0.4 Mg Capsule PO 04/13/25 20:59 [facility] Plan Patient is a 79-year-old male past medical history of Parkinson's, BPH, HTN, and HLD brought in by ambulance from [facility] to the ED in the evening of 03/13/2025 for chief complaint of fever. Patient is a poor historian is only oriented to self. Patient admitted for acute encephalopathy secondary to UTI. #Acute encephalopathy secondary to #UTI #Leukocytosis UA on admission- WBC 32, amorphous crystals, leukocyte esterase positive WBC 11.1 A&Ox1 on admission, though this may represent patient baseline. Plan: Ceftriaxone 1 g daily Urine and blood cultures ordered, pending results #BPH Patinet takes tamsulosin 0.4 daily at home. Plan: Tamsulosin 0.4 BID #Parkinson's Patient has history of parkinson's. Plan: Amantadine 100 mg p.o. twice daily Carbidopa levodopa 25/102 tablets p.o. 3 times daily Entacapone 200 mL EQ p.o. twice daily pimavanserin 34 mg daily Pramipexole 0.5 mg 3 times a day Trihexyphenidyl 5 mg twice a day #Hypernatremia #Hyperchloremia Patient presented with a Na 147, Cl 112; 03/14/25 labs showed Na 149, Cl 113; repeat PM Na 03/14/25 was 145. Plan: Patient received 1 L LR in the ED Received 1L D5W #Hypertension Patient has history of hypertension. Plan: Amlodipine 5 mg daily #Hx hyperlipidemia Plan: No intervention currently #Acute normocytic anemia Presenting Hgb 12.2, MCV 90, no evidence of active bleed Plan: Monitor Disposition: Med-Surg DVT prophylaxis: lovenox GI prophylaxis: Diet: Regular Lines: PIV CODE STATUS: Full This case was discussed with my attending physician, Dr. Brooks, and senior resident, Dr. Weeks. Tez Gomez, PGY1 Attending Provider Attestation/Addendum I reviewed labs, imaging, EKG, home medications and prior available records. Face to face evaluation was performed by me. I have personally examined the patient and discussed assessment and plan with the IM team. I reviewed the resident note and agree with the plan with exceptions as below. Acute UTI Parkinson's disease Hyponatremia History of BPH Continue D5W Monitor sodium level Continue IV ceftriaxone Follow-up urine culture Continue tamsulosin 0.4 mg twice daily Bladder scan Outpatient follow-up with
[2025-03-14] MEDS: ENOXAPARIN SOD INJ 40 MG/0.4 ML SYRINGE SC (09:33)
[2025-03-14] MEDS: FINASTERIDE 5 MG TABLET PO (09:34)
[2025-03-14] MEDS: NUPLAZID 34 MG CAPSULE PO (09:44)
--- NOTE | 2025-03-14 09:46 | PC.SS ---
Follow up note: On IV antibiotic. Pt is from [facility] and will return upon dc.
[2025-03-14] MEDS: ENTACAPONE 200 MG PO ×2 (10:25→21:53)
[2025-03-14] MEDS: ACETAMINOPHEN 325 MG TABLET 650 MG PO (12:13)
[2025-03-14] MEDS: DEXTROSE 5%-WATER 1,000 ML 100 ML IV (12:13)
[2025-03-14] MEDS: PRAMIPEXOLE 0.25 MG TABLET 0.5 MG PO ×2 (13:09→21:52)
[2025-03-14] MEDS: CARBIDOPA/LEVODOPA 25/100 MG TABLET 2 TAB PO ×2 (13:10→21:52)
[2025-03-14 15:28] LABS: Sodium 145 mMol/L (136-145)
--- NOTE | 2025-03-14 16:15 | PC.SS ---
SS spoke to Maya from [facility]. Pt is confused. 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 Pt was admitted for UTI. Per Maya pt transfers into wheelchair. Pt requires assistance with ADLs. Per Maya, patient's sister, Marry is her medical decision maker. Pt will return to [facility] upon d/c. D/C plan: Return to [facility] Next of Kin: Marry Conroy, daughter, phone# [phone] PCP: Dr. Pack Address: Correct on facesheet
[2025-03-14] MEDS: TAMSULOSIN HCL 0.4 MG CAPSULE PO (21:52)
[2025-03-15] VITALS (10 sets, daily range): BP systolic 121–142; BP diastolic 65–74; PULSE 57–77; RESP 16–20; TEMP 35.9–36.5; O2SAT 97–99
[2025-03-15] MEDS: cefTRIAXone/D5w 1gm IV premix 1 GM/50 ML BAG IV (01:57)
[2025-03-15] MEDS: PRAMIPEXOLE 0.25 MG TABLET 0.5 MG PO ×3 (05:06→21:44)
[2025-03-15] MEDS: CARBIDOPA/LEVODOPA 25/100 MG TABLET 2 TAB PO ×3 (05:07→21:44)
[2025-03-15 05:42] LABS: Basophils # (Auto) 0.1 Thou/mm3 (0.0-0.2); Basophils % (Auto) 1 % (0-2.5); Eosinophils # (Auto) 0.5 Thou/mm3 (0.0-0.5); Eosinophils % (Auto) 5 % (0-10); Hematocrit 35.7 % (41.0-53.0); Hemoglobin 11.8 g/dL (13.5-16.0); Immature Granulocytes Auto 0.03 Thou/mm3 (0.00-0.00); Lymphocytes # (Auto) 2.0 Thou/mm3 (1.0-4.8); Lymphocytes % (Auto) 19 % (10-50); Mean Corpuscular HGB Conc 33.1 g/dl (31.0-37.0); Mean Corpuscular Hemoglobin 30.0 pg (25.0-35.0); Mean Corpuscular Volume 91 fL (80-100); Monocytes # (Auto) 0.9 Thou/mm3 (0.0-0.8); Monocytes % (Auto) 8 % (0-12); Neutrophils # (Auto) 7.2 Thou/mm3 (1.8-7.7); Neutrophils % (Auto) 68 % (37-80); Nucleated Red Blood Cell # 0.00 Thou/mm3 (0.00-0.00); Nucleated Red Blood Cell % 0 /100 WBC (0); Platelet Count 231 Thou/mm3 (140-440); RDW Standard Deviation 42.6 fL (35.1-43.9); Red Blood Count 3.93 Miln/mm3 (4.50-5.90); White Blood Count 10.6 Thou/mm3 (3.8-10.6)
[2025-03-15 06:21] LABS: Alanine Aminotransferase < 7 U/L (10-49); Albumin, Serum 3.9 gm/dL (3.4-4.8); Albumin/Globulin Ratio 2.2 (1.2-2.2); Alkaline Phosphatase 151 U/L (46-116); Anion Gap 7 (7-16); Aspartate Amino Transferase 11 U/L (0-34); BUN/Creatinine Ratio 14 Ratio (12-20); Bilirubin,Total 0.3 mg/dL (0.3-1.2); Blood Urea Nitrogen 11 mg/dL (9-23); Calcium 8.3 mg/dL (8.3-10.6); Calcium (Corrected) 8.4 mg/dL (8.5-10.1); Carbon Dioxide 27.1 mMol/L (20.0-31.0); Chloride 111 mMol/L (98-107); Creatinine (Component) 0.8 mg/dL (0.6-1.3); Estimated Creatinine Clearance 86.9 mL/min (>60); Globulin 1.8 gm/dL (2.3-3.5); Glucose 107 mg/dL (74-106); Osmolality,Calculated 288 (275-295); Potassium 3.5 mMol/L (3.4-5.1); Sodium 145 mMol/L (136-145); Total Protein 5.7 gm/dL (5.7-8.2); eGFR > 60 See Note
[2025-03-15] MEDS: TAMSULOSIN HCL 0.4 MG CAPSULE PO ×2 (08:02→21:44)
[2025-03-15] MEDS: FINASTERIDE 5 MG TABLET PO (08:03)
[2025-03-15] MEDS: ENTACAPONE 200 MG PO ×2 (08:04→21:45)
[2025-03-15] MEDS: ENOXAPARIN SOD INJ 40 MG/0.4 ML SYRINGE SC (08:06)
[2025-03-15] MEDS: NUPLAZID 34 MG CAPSULE PO (08:14)
[2025-03-15 09:18] LABS: Magnesium 1.6 mg/dL (1.6-2.6); Phosphorous 2.9 mg/dL (2.4-5.1)
--- NOTE | 2025-03-15 09:51 | PD.RESPRO ---
Documentation for date of: 03/15/25 Subjective Subjective Interval history: Patient seen and examined at bedside; no acute events overnight. Patient still A&Ox1-2. WBC 10.6 today; Urine positive for GPCs Exam Vital Signs Temp Pulse Resp BP Pulse Ox O2 Del Method 96.6 F L 65 16 142/69 H 99 Room Air 03/15/25 07:38 03/15/25 08:14 03/15/25 07:38 03/15/25 08:14 03/15/25 07:38 03/15/25 07:38 Narrative Exam General: A/O x1-2, no acute distress, well-nourished, well-developed Eyes: PERRL, EOMI. Anicteric, vision grossly intact. Ears: No ear pain, no ear discharge, Hearing grossly intact. Nose: No nasal discharge. Mouth/Throat: Moist mucous membranes, no redness, no lesions. Neck: Neck supple, non-tender, no cervical lymphadenopathy. Lungs: Clear PERLA to auscultation and percussion, No accessory muscle use. Cardio: Normal S1/S2, regular rhythm, no murmurs, no JVD or carotid bruits. Abdomen: Soft, non-tender, no palpable masses, peristalsis present, no guarding or rebound. Extremities: Symmetrical, no significant deformities, no peripheral edema , non-tender, peripheral pulses present. Skin: No rashes, no lesions, warm to touch. Neuro: No focal neurological deficits. Psych: Cooperative, appropriate mood and effect. Objective Labs 03/15/25 04:40 03/15/25 04:40 Labs: Laboratory Results - last 24 hr 03/14/25 03/15/25 14:59 04:40 WBC 10.6 RBC 3.93 L Hgb 11.8 L Hct 35.7 L MCV 91 MCH 30.0 MCHC 33.1 RDW Std Deviation 42.6 Plt Count 231 Neut % (Auto) 68 Lymph % (Auto) 19 [place] % (Auto) 8 Eos % (Auto) 5 Baso % (Auto) 1 Neut # (Auto) 7.2 Lymph # (Auto) 2.0 [place] # (Auto) 0.9 H Eos # (Auto) 0.5 Baso # (Auto) 0.1 Immature Gran # (Auto) 0.03 H Absolute Nucleated RBC 0.00 Immature Gran % 0 Nucleated RBC % 0 Sodium 145 145 Potassium 3.5 D Chloride 111 H Carbon Dioxide 27.1 Anion Gap 7 BUN 11 Creatinine 0.8 Estim Creat Clear Calc 86.9 eGFR > 60 BUN/Creatinine Ratio 14 Glucose 107 H Calculated Osmolality 288 Calcium 8.3 Corrected Calcium 8.4 L Phosphorus 2.9 Magnesium 1.6 Total Bilirubin 0.3 AST 11 ALT < 7 L Alkaline Phosphatase 151 H Total Protein 5.7 Albumin 3.9 Globulin 1.8 L Albumin/Globulin Ratio 2.2 ABG Interpretation ABG results: 03/13/25 19:47 VBG pH 7.41 VBG pCO2 45 VBG pO2 40 VBG Base Excess 4 H Quality Measures Quality Measures none Advance care planning discussed with:: other Assessment & Plan Assessment Current Active Medications: Generic Name Dose Route Start Last Admin Trade Name Freq PRN Reason Stop Dose Admin Acetaminophen 650 mg 03/14/25 14:42 Acetaminophen 325 Mg Tablet PO 04/12/25 23:19 Q6H PRN Fever >101.5 or pain Amantadine HCl 100 mg 03/14/25 09:00 03/15/25 08:03 Amantadine Hcl 100 Mg Capsule PO 03/21/25 08:59 100 mg BID BRY Administration Amlodipine Besylate 5 mg 03/14/25 09:00 03/15/25 08:14 Amlodipine Besylate 5 Mg Tablet PO 04/13/25 08:59 5 mg DAILY BRY Administration Carbidopa/Levodopa 2 tab 03/14/25 06:00 03/15/25 05:07 Carbidopa/Levodopa 25/100 Mg Tablet PO 04/13/25 05:59 2 tab TID BRY Administration Nuplazid 34 Mg 0 ea 03/14/25 10:00 03/15/25 08:14 Capsule PO 04/13/25 09:59 1 capsule QDAY BRY Administration Trihexyphenidyl Hcl 0 ea 03/14/25 10:00 03/15/25 08:05 5mg Tablet PO 04/13/25 09:59 1 tablet BID BRY Administration Enoxaparin Sodium 40 mg 03/14/25 09:00 03/15/25 08:06 Enoxaparin Sod Inj 40 Mg/0.4 Ml Syringe SC 03/28/25 08:59 40 mg QDAY BRY Administration Entacapone 200 mg 03/14/25 09:00 03/15/25 08:04 Entacapone 200 Mg Tablet (Non-Formulary) PO 04/13/25 08:59 200 mg BID BRY Administration Finasteride 5 mg 03/14/25 09:00 03/15/25 08:03 Finasteride 5 Mg Tablet PO 04/13/25 08:59 5 mg QDAY BRY Administration Ceftriaxone Sodium/Dextrose 1 gm in 50 mls @ 100 mls/hr 03/14/25 02:00 03/15/25 01:57 Rocephin/D5w 1gm Iv Premix IV 03/21/25 01:59 100 mls/hr Q24H BRY Administration Pramipexole Dihydrochloride 0.5 mg 03/14/25 06:00 03/15/25 05:06 Pramipexole 0.25 Mg Tablet PO 04/13/25 05:59 0.5 mg TID BRY Administration Tamsulosin HCl 0.4 mg 03/14/25 21:00 03/15/25 08:02 Tamsulosin Hcl 0.4 Mg Capsule PO 04/13/25 20:59 0.4 mg BID BRY Administration Plan Patient is a 79-year-old male past medical history of Parkinson's, BPH, HTN, and HLD brought in by ambulance from [facility] to the ED in the evening of 03/13/2025 for chief complaint of fever. Patient is a poor historian is only oriented to self. Patient admitted for acute encephalopathy secondary to UTI. #Acute encephalopathy secondary to #UTI #Leukocytosis UA on admission- WBC 32, amorphous crystals, leukocyte esterase positive WBC 11.1 on admission; 10.6 today A&Ox1 on admission, though this may represent patient baseline; A&Ox1-2 today UCx shows gram-positive cocci Plan: Ceftriaxone 1 g daily Urine and blood cultures ordered, pending results #BPH Patient takes tamsulosin 0.4 daily at home. Plan: Tamsulosin 0.4 BID #Parkinson's Patient has history of parkinson's. Plan: Amantadine 100 mg p.o. twice daily Carbidopa levodopa 25/102 tablets p.o. 3 times daily Entacapone 200 mL EQ p.o. twice daily pimavanserin 34 mg daily Pramipexole 0.5 mg 3 times a day Trihexyphenidyl 5 mg twice a day #Hypernatremia #Hyperchloremia Patient presented with a Na 147, Cl 112; 03/14/25 labs showed Na 149, Cl 113; repeat PM Na 03/14/25 was 145. 03/15 NA was 145. Plan: Patient received 1 L LR in the ED Received 1L D5W #Hypertension Patient has history of hypertension. Plan: Amlodipine 5 mg daily #Hx hyperlipidemia Plan: No intervention currently #Acute normocytic anemia Presenting Hgb 12.2, MCV 90, no evidence of active bleed Plan: Monitor Disposition: Med-Surg DVT prophylaxis: lovenox GI prophylaxis: Diet: Regular Lines: PIV CODE STATUS: Full This case was discussed with my attending physician, Dr. Brooks, and senior resident, Dr. Weeks. Tez Gomez, PGY1 Attending Provider Attestation/Addendum I reviewed labs, imaging, EKG, home medications and prior available records. Face to face evaluation was performed by me. I have personally examined the patient and discussed assessment and plan with the IM team. I reviewed the resident note and agree with the plan with exceptions as below. Acute UTI Parkinson's disease Hypoactive delirium Hyponatremia History of BPH Continue D5W Monitor sodium level: Improved Continue IV ceftriaxone Follow-up urine culture: Showed gram-positive cocci Continue tamsulosin 0.4 mg twice daily Bladder scan Outpatient follow-up with neurology
[2025-03-16] VITALS (7 sets, daily range): BP systolic 127–149; BP diastolic 65–91; PULSE 56–86; RESP 17–20; TEMP 36.2–36.8; O2SAT 95–98; BMI 28.1
[2025-03-16] MEDS: cefTRIAXone/D5w 1gm IV premix 1 GM/50 ML BAG IV (02:02)
[2025-03-16 05:12] LABS: Basophils # (Auto) 0.1 Thou/mm3 (0.0-0.2); Basophils % (Auto) 1 % (0-2.5); Eosinophils # (Auto) 0.4 Thou/mm3 (0.0-0.5); Eosinophils % (Auto) 4 % (0-10); Hematocrit 35.2 % (41.0-53.0); Hemoglobin 11.8 g/dL (13.5-16.0); Immature Granulocytes Auto 0.02 Thou/mm3 (0.00-0.00); Lymphocytes # (Auto) 1.8 Thou/mm3 (1.0-4.8); Lymphocytes % (Auto) 20 % (10-50); Mean Corpuscular HGB Conc 33.5 g/dl (31.0-37.0); Mean Corpuscular Hemoglobin 30.9 pg (25.0-35.0); Mean Corpuscular Volume 92 fL (80-100); Monocytes # (Auto) 0.6 Thou/mm3 (0.0-0.8); Monocytes % (Auto) 7 % (0-12); Neutrophils # (Auto) 5.9 Thou/mm3 (1.8-7.7); Neutrophils % (Auto) 68 % (37-80); Nucleated Red Blood Cell # 0.00 Thou/mm3 (0.00-0.00); Nucleated Red Blood Cell % 0 /100 WBC (0); Platelet Count 190 Thou/mm3 (140-440); RDW Standard Deviation 43.0 fL (35.1-43.9); Red Blood Count 3.82 Miln/mm3 (4.50-5.90); White Blood Count 8.8 Thou/mm3 (3.8-10.6)
[2025-03-16] MEDS: CARBIDOPA/LEVODOPA 25/100 MG TABLET 2 TAB PO ×2 (05:32→13:49)
[2025-03-16] MEDS: PRAMIPEXOLE 0.25 MG TABLET 0.5 MG PO ×2 (05:32→13:49)
[2025-03-16 05:50] LABS: Alanine Aminotransferase < 7 U/L (10-49); Albumin, Serum 3.8 gm/dL (3.4-4.8); Albumin/Globulin Ratio 2.0 (1.2-2.2); Alkaline Phosphatase 149 U/L (46-116); Anion Gap 6 (7-16); Aspartate Amino Transferase < 8 U/L (0-34); BUN/Creatinine Ratio 10 Ratio (12-20); Bilirubin,Total 0.3 mg/dL (0.3-1.2); Blood Urea Nitrogen 8 mg/dL (9-23); Calcium 8.9 mg/dL (8.3-10.6); Calcium (Corrected) 9.1 mg/dL (8.5-10.1); Carbon Dioxide 25.6 mMol/L (20.0-31.0); Chloride 111 mMol/L (98-107); Creatinine (Component) 0.8 mg/dL (0.6-1.3); Estimated Creatinine Clearance 86.9 mL/min (>60); Globulin 1.9 gm/dL (2.3-3.5); Glucose 80 mg/dL (74-106); Magnesium 1.9 mg/dL (1.6-2.6); Osmolality,Calculated 282 (275-295); Phosphorous 2.5 mg/dL (2.4-5.1); Potassium 3.9 mMol/L (3.4-5.1); Sodium 143 mMol/L (136-145); Total Protein 5.7 gm/dL (5.7-8.2); eGFR > 60 See Note
--- NOTE | 2025-03-16 05:51 | PC.NURSE ---
called Dr. Dominguez regarding patient does not have recorded bowel movement in chart, patient does not have bowel regimen on board, per doctor will add order.
[2025-03-16] MEDS: ENTACAPONE 200 MG PO (08:03)
[2025-03-16] MEDS: NUPLAZID 34 MG CAPSULE PO (08:04)
[2025-03-16] MEDS: ENOXAPARIN SOD INJ 40 MG/0.4 ML SYRINGE SC (08:05)
[2025-03-16] MEDS: FINASTERIDE 5 MG TABLET PO (08:05)
[2025-03-16] MEDS: TAMSULOSIN HCL 0.4 MG CAPSULE PO (08:06)
--- NOTE | 2025-03-16 09:18 | PC.SS ---
Follow up note: Cultures are pending. Pt is on IV antibiotic. Pt will return to [facility] upon dc.
--- NOTE | 2025-03-16 14:34 | ESDS_ITS ---
Planned Discharge Date 03/16/25 DS: Providers Provider Date of admission: 03/13/25 23:20 Primary care physician: Bushra Pack MD Admitting Provider: Leo Garza MD Attending Provider on Admission: Leo Garza MD Attending Provider on DC: Ken Brooks MD Discharging Provider: Ken Brooks MD Diagnosis Problem List Completed Was Problem List Reviewed/Reconciled?: Yes Hospital Course - Hospitalist Hospital Course Hospital course: 79-year-old male past medical history of Parkinson's BPH, hypertension, and hyperlipidemia brought in by ambulance from [facility] to the ED in the evening of 03/13/2025 for chief complaint of fever per the patient. Patient is a poor historian is only oriented to self. Most of the history was gathered from chart review and the patient's daughter at bedside who assisted in collecting history and reports that patient is not at his mental baseline. It was reported that the patient had increased confusion at the facility which prompted his visit to the ED. Hospital course and diagnoses: #Acute encephalopathy secondary to #UTI #Leukocytosis UA on admission- WBC 32, amorphous crystals, leukocyte esterase positive WBC down trended A&Ox1 on admission, though this may represent patient baseline; A&Ox1-2 today, likely hypoactive delirium in setting of Parkinson's disease UCx shows gram-positive cocci, identified as E faecalis Plan: Transition to oral amoxicillin for 5 more days #BPH Patient takes tamsulosin 0.4 daily at home. Plan: Continue home medications and follow-up with urology #Parkinson's Patient has history of parkinson's. Plan: Amantadine 100 mg p.o. twice daily Carbidopa levodopa 25/102 tablets p.o. 3 times daily Entacapone 200 mL EQ p.o. twice daily pimavanserin 34 mg daily Pramipexole 0.5 mg 3 times a day Trihexyphenidyl 2 mg twice a day #Hypernatremia #Hyperchloremia Patient presented with a Na 147, Cl 112; 03/14/25 labs showed Na 149, Cl 113; repeat PM Na 03/14/25 was 145. 03/15 NA was 145. Plan: Encourage oral hydration #Hypertension Patient has history of hypertension. Plan: Amlodipine 5 mg daily #Hx hyperlipidemia Plan: No intervention currently #Acute normocytic anemia Presenting Hgb 12.2, MCV 90, no evidence of active bleed Plan: Monitor H&H as outpatient Time Spent with Patient Time attestation: Total time spent providing and/or coordinating discharge services: Time spent: Greater than 30 minutes Discharge Results Labs Diagrams: 03/16/25 04:10 03/16/25 04:10 Labs: Short CBC 03/16/25 Range/Units 04:10 WBC 8.8 (3.8-10.6) Thou/mm3 Hgb 11.8 L (13.5-16.0) g/dL Hct 35.2 L (41.0-53.0) % Plt Count 190 D (140-440) Thou/mm3 BMP 03/16/25 04:10 Sodium 143 Potassium 3.9 Chloride 111 H Carbon Dioxide 25.6 BUN 8 L Creatinine 0.8 Glucose 80 Calcium 8.9 Liver Function 03/16/25 Range/Units 04:10 Total Bilirubin 0.3 (0.3-1.2) mg/dL AST < 8 (0-34) U/L ALT < 7 L (10-49) U/L Alkaline Phosphatase 149 H (46-116) U/L Albumin 3.8 (3.4-4.8) gm/dL Exam Vital Signs Temp Pulse Resp BP Pulse Ox O2 Del Method 98.2 F 60 17 131/65 H 98 Room Air 03/16/25 12:00 03/16/25 12:00 03/16/25 12:00 03/16/25 12:00 03/16/25 12:00 03/16/25 12:00 Narrative General: A/O x1-2, no acute distress, well-nourished, well-developed Eyes: PERRL, EOMI. Anicteric, vision grossly intact. Ears: No ear pain, no ear discharge, Hearing grossly intact. Nose: No nasal discharge. Mouth/Throat: Moist mucous membranes, no redness, no lesions. Neck: Neck supple, non-tender, no cervical lymphadenopathy. Lungs: Clear PERLA to auscultation and percussion, No accessory muscle use. Cardio: Normal S1/S2, regular rhythm, no murmurs, no JVD or carotid bruits. Abdomen: Soft, non-tender, no palpable masses, peristalsis present, no guarding or rebound. Extremities: Symmetrical, no significant deformities, no peripheral edema , non-tender, peripheral pulses present. Skin: No rashes, no lesions, warm to touch. Neuro: No focal neurological deficits except for dialysis at baseline from his Parkinson's disease Psych: Cooperative, appropriate mood and effect. Discharge Plan Plan Patient Disposition: Xfer Skilled Nsg Fac (SNF) Patient condition on transfer: Stable Care Plan Goals: You have an infection in the urine that we will treat with amoxicillin for 5 more days Continue taking your Parkinson's disease medications Continue taking your prostate medications and follow-up with your urologist Do not take meloxicam if you do not have pain Follow-up with your neurologist Follow-up with your PCP in 1 week Prescriptions/Referrals Prescriptions/Med Rec: New amoxicillin 500 mg tablet 500 mg PO Q8H 5 Days Qty: 15 0RF Continued carbidopa-levodopa 50-200 mg tablet extended release 1 tab PO TID amantadine HCl 100 mg capsule 1 cap PO BID Rx Instructions: Take 1 capsule by mouth in the morning and at 2 PM. pramipexole 0.5 mg tablet 1 tab PO Q8H entacapone 200 mg tablet 1 tab PO Q12H finasteride 5 mg tablet 1 tab PO QDAY trihexyphenidyl 2 mg tablet 2 mg PO BID atorvastatin 40 mg tablet 40 mg PO DAILY Patient Comments: TAKE 1 TABLET BY MOUTH EVERY DAY FOR CHOLESTEROL lisinopril 40 mg Tablet 40 mg PO QDAY pimavanserin 34 mg Capsule 34 mg PO QDAY furosemide 20 mg tablet 20 mg PO QDAY PRN (Reason: edema) tamsulosin 0.4 mg capsule 0.4 mg PO QPM Patient Comments: TAKE 1 CAPSULE BY MOUTH EVERY NIGHT AT BEDTIME FOR BENIGN PROSTATIC HYPERPLASIA amlodipine 5 mg tablet 5 mg PO QDAY Qty: 30 0RF Discontinued trihexyphenidyl 5 mg Tablet 2 mg PO BID Rx Instructions: give with food (meal/snack) meloxicam 15 mg Tablet 15 mg PO QDAY cefuroxime axetil 250 mg tablet 250 mg PO BID Qty: 8 0RF Referrals: Bushra Pack MD [Primary Care Provider] Patient/Caregiver Discharge Instructions Education Materials: Anatomy of the Male Urinary Tract, Urinary Tract Infections in Men, Parkinson Disease Manage, Parkinson Disease Banning Emotions Print Language: Polish Stand Alone Forms: Kady Award Info., Patient Portal Info Letter Discharge Order Discharge Orders: Discharge (Routine); Ordered 03/16/25 Ordered By: Ken Brooks Quality Discharge Quality Measures none
--- NOTE | 2025-03-16 15:05 | PC.SS ---
SS has setup gurney transportation with Rhonda from [facility] [phone] for 5pm to [facility]..? Ref# [id number].? SS has requested [facility].? Per [facility] artist's representative, [facility] is not a guaranteed transport company.? Estimated time is 3-4 hours and has setup transportation for 5:30. SS has sent patient?s facesheet and ambulance form to [facility] using [employer] SS has spoken to Bridget from [facility] who has placed pt on will call list until she has been contacted by [facility]. Son, Marvel and dtr, Marry are aware. Maya from [facility] is aware. Bedside nurses, Blair and Rhonda are aware. Kim COLE is aware. Jyoti COLE is aware. SS provided Rhonda from [facility] with phone number to the nurses' station.
== END 2025-03-16 17:25 | disposition skilled nursing facility (03) | DRG 689 ==
LOC: SERX 23:47 → SERHOLD 03-14 00:30 → S3SX 03-14 01:01
PROVIDERS: Admitting Provider Student in an Organized Health Care Education/Training Program; Emergency Provider Emergency Medicine; PCP Hospitalist; Visit Provider Student in an Organized Health Care Education/Training Program
DX: N39.0 Urinary tract infection, site not specified (principal); G93.41 Metabolic encephalopathy; E87.0 Hyperosmolality and hypernatremia; E87.1 Hypo-osmolality and hyponatremia; G20.A1 Parkinson's disease without dyskinesia, without mention of fluctuations; E87.8 Other disorders of electrolyte and fluid balance, not elsewhere classified; D64.89 Other specified anemias; F17.210 Nicotine dependence, cigarettes, uncomplicated; N40.0 Benign prostatic hyperplasia without lower urinary tract symptoms; I10 Essential (primary) hypertension; E78.5 Hyperlipidemia, unspecified; Z87.440 Personal history of urinary (tract) infections
CPT/HCPCS: 36415; 70450; 71045; 80053; 81001; 82248; 82803; 83605; 83690; 83735; 83880; 84100; 84145; 84295; 84443; 84484; 85025; 85652; 86140; 87040; 87077; 87081; 87086; 87186; 87502; 87635; 87811; 93005; 96361; 96365; 96375; 99284; J0696; J1650; J2405; J7070; J7120; A9270